=== PATIENT | female | born 1985 | race Caucasian/White ===

== ENCOUNTER 2023-03-01 14:56 | Outpatient (OUT) | payer MEDICARE, MEDICAID, SELFPAY ==
--- NOTE | 2023-03-01 15:12 | XR_ITS ---
[facility] [place] [id number] Patient Name: ESTEFANIA CHOWDHURY MRN: [id number] date: 1985 Sex: F Assigned Patient Location: [facility] Current Patient Location: [facility] Accession/Order Number: [id number] Exam Date: 03/01/2023 15:05 Report Date: 03/01/2023 16:35 At the request of: ALICIA WHITING Procedure: XR knee CHACORTA 4V EXAMINATION: XR knee CHACORTA 4V HISTORY: Acute pain of right knee M25.561 COMPARISON: No relevant comparison available. FINDINGS: RIGHT FINDINGS: BONES: Normal. No significant arthropathy or acute abnormality. SOFT TISSUES: Negative. No visible soft tissue swelling. OTHER: Negative. LEFT FINDINGS: BONES: Normal. No significant arthropathy or acute abnormality. SOFT TISSUES: Negative. No visible soft tissue swelling. OTHER: Negative. IMPRESSION: RIGHT CONCLUSION: No acute radiographic abnormality LEFT CONCLUSION: No acute radiographic abnormality Electronically authenticated by: INOCENCIA YEE Date: 03/01/2023 16:35
== END 2023-03-01 14:57 | disposition home or self-care (01) ==
LOC: RAD 14:56
PROVIDERS: PCP Family Medicine; Visit Provider Family Medicine
DX: M25.561 Pain in right knee (principal)
CPT/HCPCS: 73564

== ENCOUNTER 2023-03-22 14:18 | Outpatient (RCR) | payer MEDICARE, MEDICAID, SELFPAY | END 2023-04-05 11:05 | disposition home or self-care (01) | LOC: PT 14:18 | PROVIDERS: PCP Family Medicine; Visit Provider Nurse Practitioner Family | DX: S86.811D Strain of other muscle(s) and tendon(s) at lower leg level, right leg, subsequent encounter (principal); M25.561 Pain in right knee; M79.604 Pain in right leg | CPT/HCPCS: 97110; 97161 ==

== ENCOUNTER 2023-04-05 16:51 | Outpatient (OUT) | payer MEDICARE, MEDICAID, SELFPAY ==
--- NOTE | 2023-04-05 16:54 | US_ITS ---
[facility] [place] [id number] Patient Name: ESTEFANIA CHOWDHURY MRN: [id number] date: 1985 Sex: F Assigned Patient Location: US Current Patient Location: US Accession/Order Number: [id number] Exam Date: 04/05/2023 17:00 Report Date: 04/05/2023 19:33 At the request of: CHRISTI VARGAS Procedure: US venous doppler LE RT EXAMINATION: US venous doppler LE RT HISTORY: Right leg pain M79.604 COMPARISON: No relevant comparison available. FINDINGS: REGION: Right leg. THROMBI: None. COMPRESSIBILITY: Normal compressibility. FLOW: Normal waveform and antegrade flow between 5 and 20 cm/s. OTHER: None. US/US venous doppler LE RT IMPRESSION: 1. No deep vein thrombus within the right lower extremity. Electronically authenticated by: MANUEL FU Date: 04/05/2023 19:33
== END 2023-04-05 16:52 | disposition home or self-care (01) ==
LOC: US 16:51
PROVIDERS: PCP Family Medicine; Visit Provider Nurse Practitioner Family
DX: M79.604 Pain in right leg (principal)
CPT/HCPCS: 93971

== ENCOUNTER 2023-05-21 08:18 | Outpatient (OUT) | payer MEDICARE, MEDICAID, SELFPAY ==
[2023-05-21 09:49] LABS: Alanine Aminotransferase 38 U/L (14-59); Albumin Level 3.6 g/dL (3.4-5.0); Alkaline Phosphatase 66 U/L (46-116); Anion Gap 15.9; Aspartate Amino Transferase 17 U/L (15-37); BUN Creatinine Ratio 15.6; Bilirubin Total 0.2 mg/dL (0.2-1.0); Carbon Dioxide 18.7 mmol/L (21.0-32.0); Chloride 107 mmol/L (98-107); Estimated GFR (African America >60 (>=60); Estimated GFR (Non-African Ame >60 (>=60); Globulin 3.7 g/dL; Glucose 122 mg/dL (74-106); Potassium 3.6 mmol/L (3.5-5.1); Sodium 138 mmol/L (136-145); Total Protein 7.3 g/dL (6.4-8.2)
== END 2023-05-21 08:19 | disposition home or self-care (01) ==
LOC: LAB 08:20
PROVIDERS: PCP Family Medicine; Visit Provider Family Medicine
DX: E78.5 Hyperlipidemia, unspecified (principal)
CPT/HCPCS: 36415; 80053; 80061; 82947

== ENCOUNTER 2023-05-21 08:22 | Outpatient (OUT) | payer MEDICARE, MEDICAID, SELFPAY ==
[2023-05-21 10:47] LABS: Chol HDL Ratio 3.8; Cholesterol 154 mg/dL (<=200); Glucose 129 mg/dL (74-106); HDL Cholesterol 40 mg/dL (40-60); Triglycerides 356 mg/dL (<=150); VLDL CHOLESTEROL 71.2 mg/dL
== END 2023-05-21 08:23 | disposition home or self-care (01) ==
PROVIDERS: PCP Family Medicine; Visit Provider Psychiatry & Neurology Psychiatry
DX: Z79.899 Other long term (current) drug therapy (principal); F29 Unspecified psychosis not due to a substance or known physiological condition; E78.5 Hyperlipidemia, unspecified
CPT/HCPCS: 36415; 80053; 80061; 82947

== ENCOUNTER 2023-06-18 15:21 | Outpatient (OUT) | payer MEDICARE, MEDICAID, SELFPAY ==
--- NOTE | 2023-06-18 15:25 | MR_ITS ---
[facility] [place] [id number] Patient Name: ESTEFANIA CHOWDHURY MRN: [id number] date: 1985 Sex: F Assigned Patient Location: MRI Current Patient Location: MRI Accession/Order Number: [id number] Exam Date: 06/18/2023 15:55 Report Date: 06/18/2023 18:23 At the request of: CHRISTI Mckeon APLING Procedure: MR knee RT wo con EXAM: MR knee RT wo con HISTORY: Right calf pain COMPARISON: X-rays 03/01/2023 TECHNIQUE: Multiplanar, multi sequential MRI sequences were performed. The sagittal sequences were performed off axis from normal. FINDINGS: The patient is morbidly obese. Nondescript edema within the anterior prepatellar soft tissues. No loculated soft tissue collection, mass, cyst or hematoma. No popliteal cyst. No fracture, dislocation, subluxation or osseous lesion. Muscles exhibit no edema, hematoma, atrophy or fatty infiltration. High-grade partial-thickness versus full-thickness fissure of the lateral patella facet central cartilage (axial 8 and sagittal 22). Mild adjacent interstitial edema and partial thickness changes. Small foci of bone marrow edema within the underlying subchondral bone. The remainder of the patella cartilage is unremarkable. No gross visualized irregularity of the trochlea cartilage. No gross visualized chondral irregularity of the medial or lateral femorotibial articular surfaces. No patella tilt or discrete subluxation. Edema of Hoffa's fat. The patella tendon and visualized extensor mechanism are unremarkable. Approximately 5.2 mm of weight related lateral translation of the tibia on the femur. This results in cephalad uncovering of the lateral meniscus body (coronal 17). Mild weight related medialization of the medial meniscus body into the medial gutter (coronal 17). No visualized meniscal tears. The root ligaments are unremarkable. The anterior cruciate, posterior cruciate, medial collateral and lateral complex ligaments exhibit no thickening, tear or edema. MR/MR knee RT wo con IMPRESSION: 1. High-grade partial-thickness versus full-thickness chondral fissure of the lateral patella facet with adjacent interstitial edema and partial thickness changes. 2. Morbid obesity with a weight related meniscal changes. 3. Knee effusion. Electronically authenticated by: INOCENCIA MONROE Date: 06/18/2023 18:23
== END 2023-06-18 15:22 | disposition home or self-care (01) ==
LOC: MRI 15:21
PROVIDERS: PCP Family Medicine; Visit Provider Nurse Practitioner Family
DX: M23.91 Unspecified internal derangement of right knee (principal); R60.9 Edema, unspecified; M25.461 Effusion, right knee
CPT/HCPCS: 73721

== ENCOUNTER 2023-10-01 08:38 | Outpatient (OUT) | payer MEDICARE, MEDICAID, SELFPAY ==
[2023-10-01 09:07] LABS: Basophils Absolute Auto 0.1 10^3/uL (0.0-0.1); Basophils Percent Auto 0.5 % (0.2-2.0); Eosinophils Absolute Auto 0.3 10^3/uL (0.0-0.7); Eosinophils Percent Auto 2.7 % (0.9-7.0); Hemoglobin 12.1 g/dL (12.0-16.0); Immature Granulocytes Abs Auto 0.04 10^3/uL (0.00-0.03); Immature Granulocytes Pct Auto 0.4 % (0.0-0.5); Lymphocytes Absolute Auto 2.6 10^3/uL (1.2-3.8); Lymphocytes Percent Auto 27.9 % (20.5-60.0); Mean Corpuscular HGB Conc 31.8 g/dL (29.9-35.2); Mean Corpuscular Hemoglobin 28.9 pg (26.7-34.0); Mean Corpuscular Volume 90.9 fL (81.0-99.0); Mean Platelet Volume 9.6 fL (9.5-13.5); Monocytes Absolute Auto 0.7 10^3/uL (0.3-0.8); Monocytes Percent Auto 7.8 % (1.7-12.0); Neutrophils Absolute Auto 5.6 10^3/uL (1.4-6.5); Neutrophils Percent Auto 60.7 % (43.0-75.0); Platelet Count 281 10^3/uL (150-450); Red Blood Count 4.18 10^6/uL (4.20-5.40); Red Cell Distribution Width 14.8 % (11.0-15.0); White Blood Count 9.2 10^3/uL (4.0-11.0)
[2023-10-01 10:08] LABS: Estimated Average Glucose 126 mg/dL
[2023-10-01 14:56] LABS: Chloride 108 mmol/L (98-107); Potassium 3.9 mmol/L (3.5-5.1); Sodium 141 mmol/L (136-145)
[2023-10-01 14:57] LABS: Alanine Aminotransferase 40 U/L (14-59); Albumin Globulin Ratio 1.1; Albumin Level 3.5 g/dL (3.4-5.0); Alkaline Phosphatase 67 U/L (46-116); Anion Gap 18.1; Aspartate Amino Transferase 16 U/L (15-37); BUN Creatinine Ratio 17.7; Bilirubin Total 0.1 mg/dL (0.2-1.0); Calcium 8.6 mg/dL (8.5-10.1); Carbon Dioxide 18.8 mmol/L (21.0-32.0); Estimated GFR (African America >60 (>=60); Estimated GFR (Non-African Ame >60 (>=60); Globulin 3.2 g/dL; Glucose 119 mg/dL (74-106); Total Protein 6.7 g/dL (6.4-8.2); Triglycerides 285 mg/dL (<=150)
[2023-10-01 14:58] LABS: Chol HDL Ratio 3.6; Cholesterol 142 mg/dL (<=200); HDL Cholesterol 39 mg/dL (40-60); TSH W/ REFLEX FT4 1.502 uIU/mL (0.358-3.740)
[2023-10-02 05:08] LABS: HCV Ab Non Reactive (Non Reactive); HIV Ab/p24 Ag Screen Non Reactive (Non Reactive)
== END 2023-10-01 08:39 | disposition home or self-care (01) ==
LOC: LAB 08:40
PROVIDERS: PCP Nurse Practitioner Primary Care; Visit Provider Nurse Practitioner Primary Care
DX: Z00.00 Encounter for general adult medical examination without abnormal findings (principal); Z11.59 Encounter for screening for other viral diseases; Z11.4 Encounter for screening for human immunodeficiency virus [HIV]; Z13.6 Encounter for screening for cardiovascular disorders
CPT/HCPCS: 36415; 80053; 80061; 83036; 84443; 85025; 86803; 87389

== ENCOUNTER 2025-02-23 08:10 | Outpatient (OUT) | payer MEDICARE, MEDICAID, SELFPAY ==
[2025-02-23 09:20] LABS: Chol HDL Ratio 2.7; Cholesterol 121 mg/dL (<=200); HDL Cholesterol 45 mg/dL (40-60); Triglycerides 207 mg/dL (<=150); VLDL CHOLESTEROL 41.4 mg/dL
== END 2025-02-23 08:11 | disposition home or self-care (01) ==
LOC: LAB 08:14
PROVIDERS: PCP Nurse Practitioner Primary Care; Visit Provider Internal Medicine
DX: E78.1 Pure hyperglyceridemia (principal)
CPT/HCPCS: 36415; 80061

== ENCOUNTER 2025-06-17 08:31 | Outpatient (OUT) | payer MEDICARE, MEDICAID, SELFPAY ==
--- OUTSIDE RECORDS SUMMARY | 2024-12-01 11:15 | XMS_ITS ---
Author Organization Formerly [facility], [facility] vices Address [address] [place], [place] [id number] Care Team Providers Care Computational Mathematician Name Role Phone Radha Lawrence Primary Care Provider REASON FOR VISIT 4 week DM, Weight Social History Sex Assigned At : Social History Observation Description Sex Assigned At Female Encounters Encounter Location Date Provider Diagnosis Main [address] [place] [id number] 12/01/2024 Radha Lawrence Plan Of Treatment Next Appt Details Provider Name:Radha Lawrence, 06/22/2025 08:15:00 AM, [address] [place], [place], [id number], Progress Notes * Jodi TOLEDO ADOB: [birth year] (39 yo F)Acc No.[id number]:12/01/2024 Medical Note Patient: Norm Jodi CARTAGENA Provider: Yajaira Lawrence MD :1985 A ge:38 Y S ex:Female Date:12/01/2024 Address:[address] [place], [place] [id number] Subjective: * Chief Complaints: * 1 . 4 week DM, Weight. * Medical History: Objective: * Vitals: Assessment: Plan: * Treatment: * Billing Information: * Visit Code: * Procedure Codes: * Electronic signature of Kendra Lawrence MD on 06/17/2025 at 08:36 AM EDT Sign off status: Pending * Provider: Yajaira Lawrence MD Date: 12/01/2024 Generated for Connie infante/Francoise/Katherineitting on: 1 08:36 AM EDT
--- OUTSIDE RECORDS SUMMARY | 2025-03-09 09:00 | XMS_ITS ---
Author Organization [facility] vices Address [address] [place] [id number] Care Team Providers Care Livestock Haulier Name Role Phone Radha Lawrence Primary Care Provider REASON FOR VISIT 3 month DM, HTN Social History Sex Assigned At : Social History Observation Description Sex Assigned At Female Encounters Encounter Location Date Provider Diagnosis Main [address] [place], [place] [id number] 03/09/2025 Radha Lawrence Plan Of Treatment Next Appt Details Provider Name:Radha Lawrence, 06/22/2025 08:15:00 AM, [address] [place], [id number], Progress Notes * Jodi TOLEDO ADOB: [birth year] (39 yo F)Acc No.[id number]:03/09/2025 Medical Note Patient: Norm Jodi CARTAGENA Provider: Yajaira Lawrence MD :1985 A ge:39 Y S ex:Female Date:03/09/2025 Address:[address] [place], [place] [id number] Subjective: * Chief Complaints: * 1 . 3 month DM, HTN. * Medical History: Objective: * Vitals: Assessment: Plan: * Treatment: * Billing Information: * Visit Code: * Procedure Codes: * Electronic signature of Kendra Lawrence MD on 06/17/2025 at 08:36 AM EDT Sign off status: Pending * Provider: Yajaira Lawrence MD Date: 03/09/2025 Generated for Connie infante/Francoise/Elroy on: 1 08:36 AM EDT
--- OUTSIDE RECORDS SUMMARY | 2025-06-04 14:15 | XMS_ITS | Encounter Summary ---
Author Organization [facility] Address [address] [place] [address] Care Team Providers Care Hydroelectric Component Machinist Name Role Phone Deedee Wang Primary Care Provider [phone] Coretta Josue DO Unavailable [phone] Meggan Freeman DO Unavailable [phone] Reason for Referral * Clinic-Administered Medication (Routine) - Closed Specialty Diagnoses / Procedures Referred By Bentley smith Referred To Contact Orthopaedic Surgery Diagnoses Primary osteoarthritis of right knee Procedures L Inj/Asp: R knee Hank Malik NP [address] [place] [address] Phone: tel: fax: Referral ID Status Reason Start Date Expiration Date Visits Re quested Visits Authorized [id number] Closed 06/04/2025 12/01/2025 1 1 Reason for Visit * Reason Comments Follow-up Encounter Details Date Type Department Care Team (Latest Contact Info) Description 06/04/2025 2:15 PM EDT [facility] [address] [place] [phone] Hank Malik NP [address] [place], [place] [id number] Primary osteoarthritis of right knee (Primary Dx); Chronic pain of right knee Social History Tobacco Use Types Packs/Day Years Used Date Smoking Tobacco: Never Smokeless Tobacco: Never Alcohol Use Standard Drinks/Week Comments Never 0 (1 standard drink = 0.6 oz pur e alcohol) Caffeine: pop rarely Comments Unknown Sex and Gender Information Value Date Recorded Sex Assigned at Not on file Legal Sex Female 6:38 PM EDT Gender Identity Female 11/15/2023 7:45 PM EDT Sexual Orientation Not on file documented as of this encounter Progress Notes * Hank Malik NP - 06/04/2025 2:15 PM EDTAssociated Order(s): L Inj/Asp: R knee Post-Procedure Diagnose(s): Primary osteoarthritis of right knee Images from the original note were not included. HISTORY OF PRESENT ILLNESS: EST PT Jodi Toledo is an 39 y.o. @ female. EST PT RECHECK RT KNEE PAIN- S/P PT [facility] EPIC 04/06/25 XRAY [facility] 03/01/23 MRI [facility] 06/18/23 VENOUS DOPPLER TB 04/05/23 DEPO INJECTION 07/17/23, 12/04/23 MDP 11/14/23 PHYSICAL THERAPY [facility] FINISHED THERAPY, NO RELIEF. PAIN CONTINUES FROM THIGH TO ANKLE. PAIN DIFFUSE IN KNEE, CONSTANT PAIN. +TYL. DENIES SWELLING, N/T. DENIES POPPING, GRINDING. FELT LIKE KNEE GAVE OUT ON HER YESTERDAY. DOES NOT USUALLY WAKE AT HS. REQUESTING INJ TODAY. ALLERGIES: Allergies Allergen Reactions Penicillins Unknown Other Reaction(s): Anaphylaxis , Rash HOME MEDICATIONS: Current Outpatient Medications Medication Instructions amitriptyline (ELAVIL) 50 mg, Oral, Nightly atorvastatin (LIPITOR) 20 mg, Daily sbkkhjqgqr-qfyksydxykmdy-egklzupn 50-325-40 MG tablet 1 tablet, Oral, Every 6 hours PRN calcium carbonate 600 mg, 2 times daily with meals dicyclomine (BENTYL) 20 mg, 2 times daily FLUoxetine (PROZAC) 40 mg, Daily medroxyPROGESTERone (Depo-Provera) 150 MG/ML suspension prefilled syringe injection syringe 0.65 mLIntramuscular every 3 months for 90 days omega-3 (FISH OIL) 1,000 mg, Daily QUEtiapine (SEROQUEL) 400 mg, Nightly rosuvastatin (CRESTOR) 20 mg, Daily topiramate (TOPAMAX) 100 mg, Oral, Daily traZODone (Desyrel) 50 MG tablet PHYSICAL EXAM: Right Knee Exam Tenderness Right knee tenderness location: ANTERIOR KNEE. Range of Motion Extension: 5 Flexion: 120 Tests Varus: negative Valgus: negative Other Erythema: absent Pulse: present Swelling: mild Comments: Pain radiates from knee down leg Vitals: There is no height or weight on file to calculate BMI. Tobacco Use: Low Risk (06/04/2025) Patient History Smoking Tobacco Use: Never Smokeless Tobacco Use: Never Passive Exposure: Not on file Alcohol Use: Not on file IMAGING: L Inj/Asp: R knee on 06/04/2025 4:14 PM Indications: pain Details: 21 G needle, anterolateral approach Medications: 40 mg methylPREDNISolone acetate 40 MG/ML Outcome: tolerated well, no immediate complications Site cleaned with isopropyl alcohol Procedure, treatment alternatives, risks and benefits explained, specific risks discussed. Consent was given by the patient. Orders Placed This Encounter Procedures L Inj/Asp This order was created via procedure documentation ASSESSMENT: ICD-10-CM 1. Primary osteoarthritis of right knee M17.11 2. Chronic pain of right knee M25.561 G89.29 PLAN: I reviewed exam findings with the patient and discussed treatment options, answered questions. I discussed with the patient the option of an injection. I advised the patient of risks associated with an injection including a reaction to medication, infection, failure to improve and possible worsening. The patient demonstrated understanding. Patient requesting injection. Skin Cleansed with alcohol swab. Utilizing aseptic technique patient given 40mg Depomedrol was injected. Patient tolerated thiswell. Neurovasc intact s/p injection. Post injection care instructions discussed. She will call if symptoms fail to improve Questions answered in laymen terms at the bedside. The diagnosis, home exercise plan and any ongoing restrictions/ recommendations reviewed. If unable to be reached in office, I recommend evaluation at nearest Emergency Room if any symptoms worsened or new symptoms develop for requiring urgent evaluation. documented in this encounter Plan of Treatment Not on file documented as of this encounter Procedures Procedure Name Priority Date/Time Associated Diagnosis Comments VA ARTHROCENTESIS ASPIR&/INJ MAJOR JT/BURSA W/O US Routine 06/04/2025 4:14 PM EDT Primary osteoarthritis of right knee documented in this encounter Results * VA ARTHROCENTESIS ASPIR&/INJ MAJOR JT/BURSA W/O US (06/04/2025 4:14 PM EDT) Narrative Hank Malik NP - 06/04/2025 4:14 PM EDT Hank Malik NP 06/04/2025 4:23 PM L Inj/Asp: R knee on 06/04/2025 4:14 PM Indications: pain Details: 21 G needle, anterolateral approach Medications: 40 mg methylPREDNISolone acetate 40 MG/ML Outcome: tolerated well, no immediate complications Site cleaned with isopropyl alcohol Procedure, treatment alternatives, risks and benefits explained, specific risks discussed. Consent was given by the patient. Hank Malik NP IN CLINIC/BEDSIDE ORDERABLES Fi nal Result documented in this encounter Visit Diagnoses Diagnosis Primary osteoarthritis of right knee- Primary Chronic pain of right knee documented in this encounter Administered Medications Inactive Administered Medications - up to 3 most recent administrations Medication Order MAR Action Action Date Dose Rate Site methylPREDNISolone acetate (DEPO-Medrol) injection 40 mg 40 mg, Intra-articular, Once PRN Procedure, Starting on Bev 06/04/25 at 1614, For 1 doseIndications:Primary osteoarthritis of right knee Given 06/04/2025 4:14 PM EDT 40 mg documented in this encounter Care Teams Hydroelectric Component Machinist Relationship Specialty Start Date End Date Deedee Wang DO [address] [place] [address] PCP - General Family Medicine 03/14/23 Meggan Freeman DO [address] [place] [address] PCP - [facility] 09/03/24 Coretta Josue DO [address] [place] [address] Referring Physician Neurology 10/20/24 documented as of this encounter
--- OUTSIDE RECORDS SUMMARY | 2025-06-09 10:45 | XMS_ITS ---
Author Organization [facility]ly [facility] vices Address [address], [place] [id number] Care Team Providers Care Rack Washer Name Role Phone Radha Lawrence Primary Care Provider REASON FOR VISIT DM Social History Sex Assigned At : Social History Observation Description Sex Assigned At Female Encounters Encounter Location Date Provider Diagnosis Main [address] [place] [id number] 06/09/2025 Radha Lawrence Plan Of Treatment Next Appt Details Provider Name:Radha Lawrence, 06/22/2025 08:15:00 AM, [address], [place], [id number], Progress Notes * Jodi TOLEDO ADOB: [birth year] (39 yo F)Acc No.[id number]:06/09/2025 Medical Note Patient: Norm MELENDEZJodi RODRIGUEZ Provider: Yajaira Lawrence MD :1985 A ge:39 Y S ex:Female Date:06/09/2025 Address:[address] [place], [place] [id number] Subjective: * Chief Complaints: * 1 . DM. * Medical History: Objective: * Vitals: Assessment: Plan: * Treatment: * Billing Information: * Visit Code: * Procedure Codes: * Electronic signature of Kendra Lawrence MD on 06/17/2025 at 08:36 AM EDT Sign off status: Pending * Provider: Yajaira Lawrence MD Date: 1 Generated for Connie inafnte/Francoise/Elroy on: 1 08:36 AM EDT
--- OUTSIDE RECORDS SUMMARY | 2025-06-17 08:35 | XMS_ITS | Clinical Summary ---
Author Organization [email or web address] Address [id number] [address] [place] [address] Care Team Providers Care Software Systems Engineer Name Role Phone Services, [facility] Primary Care Provider Allergies Active Allergy Reactions Criticality Noted Date Comments Penicillins Anaphylaxis High 05/23/2017 Medications amitriptyline (ELAVIL) 25 mg tablet Take 1 tablet (25 mg total) by mouth in the morning and 1 tablet (25 mg total) before bedtime. Active butalbital-acet waqvca-dyh-vuj (FIORICET WITH CODEINE) 28-849-59-30 mg per capsule Take 1 capsule by mouth every 4 (four) hours as needed for headaches. Active medroxyPROGESTE Cade (DEPO-PROVERA) 150 mg/mL injection Inject 1 mL (150 mg total) into the appropriate muscle every 3 (three) months. Active FLUoxetine (PROzac) 40 mg capsule Take 1 capsule (40 mg total) by mouth in the morning. 2 Active QUEtiapine (SEROquel) 100 mg tablet Take 1 tablet (100 mg total) by mouth nightly. 2 Active rosuvastatin (CRESTOR) 5 mg tablet Take 1 tablet (5 mg total) by mouth in the morning. 2 Active topiramate (TOPAMAX) 100 mg tablet 2 Active OZEMPIC 0.25 mg or 0.5 mg (2 mg/3 mL) pen injector Inject 2 mg under the skin once a week. Active omega-3 fatty acids/fish oil (OMEGA 3 FISH OIL ORAL) Take 1,000 mg by mouth in the morning. Active alosetron (LOTRONEX) 0.5 MG tablet Take 1 tablet (0.5 mg total) by mouth in the morning and 1 tablet (0.5 mg total) before bedtime. 4 Active dicyclomine (BENTYL) 20 mg tablet Take 1 tablet (20 mg total) by mouth in the morning and 1 tablet (20 mg total) before bedtime. 4 Active traZODone (DESYREL) 50 mg tablet Take 1 tablet (50 mg total) by mouth nightly. 5 Active QUEtiapine (SEROquel) 400 mg tablet Take 1 tablet (400 mg total) by mouth nightly. 5 Active Hospital, Clinic, or Other Facility Administered Medication Ordered Dose Route Frequency Start Date End Date Status medroxyPROGESTERone (DEPO-PROVERA) injection 150 mgIndications:Encounter for surveillance of injectable contraceptive 150 mg IM Once 05/20/2025 05/20/2025 Ended Active Problems Problem Noted Date Diagnosed Date HLD (hyperlipidemia) 05/11/2022 Overview (05/15/2023): Last Assessment & Plan: Assessment: takes Crestor Migraines 05/11/2022 Overview (05/15/2023): Last Assessment & Plan: Assessment: on meds Developmental disability 04/10/2022 BMI 40.0-44.9, adult 01/19/2022 Encounters Date Type Department Care Team Description 05/20/2025 3:00 PM EDT Nurse Injection [facility] [address] [place] [address] Encounter for surveillance of injectable contraceptive (Primary Dx) 05/18/2025 Travel from Last 3 Months Family History Medical History Relation Name Comments Diabetes Father Laron Toledo Fibromyalgia Mother Mary Grace Toledo Kidney disease Mother Mary Grace Toledo Breast cancer Neg Hx Colon cancer Neg Hx Ovarian cancer Neg Hx Uterine cancer Neg Hx Relation Name Status Comments Father Laron Toldeo Alive Mother Mary Grace Toledo Alive Social History Tobacco Use Types Packs/Day Years Used Date Smoking Tobacco: Never Smokeless Tobacco: Never Alcohol Use Standard Drinks/Week Comments No 0 (1 standard drink = 0.6 oz pur e alcohol) PHQ-2 Answer Date Recorded Total Score 19 05/15/2023 Childcare Answer Date Recorded Childcare Unknown 02/13/2019 Employment Answer Date Recorded Employment Unknown 02/13/2019 Hunger Screening Answer Date Recorded Within the past 12 months we worried whether our food would run out before we got money to buy more. Never True 05/20/2025 Within the past 12 months th e food we bought just didn't last and we didn't have money to get more. Never True 05/20/2025 Purpose - Life Answer Date Recorded Purpose and direction in life Unknown Comments No Sex and Gender Information Value Date Recorded Sex Assigned at Not on file Legal Sex Female 11:12 AM EDT Gender Identity Not on file Sexual Orientation Not on file Last Filed Vital Signs Vital Sign Reading Time Taken Comments Blood Pressure 130/90 05/20/2025 3:08 PM EDT Pulse 82 08/15/2022 11:23 AM EST Temperature 37.1 C (98.8 F) 06/07/2017 8:48 AM EDT Respiratory Rate 18 08/15/2022 11:2 3 AM EST Oxygen Saturation 95% 06/07/2017 11: 00 AM EDT Inhaled Oxygen Concentration - - Weight 112.7 kg (248 lb 6.4 oz) 05/20/2025 2:43 PM EDT Height 160 cm (5' 2.99 ) 05/20/2025 2:43 PM EDT Body Mass Index 44.02 05/20/2025 2:43 PM EDT Plan of Treatment Upcoming Encounters Date Type Department Care Team (Late st Contact Info) Description 08/05/2025 3:00 PM EST Nurse Injection [facility] [address] [place] [address] Health Maintenance Due Date Last Done Comments Adult BMI Follow Up Plan 12/23/2003 Depression Screening 05/15/2024 05/15/2023 COVID-19 Vaccine (2024-2 6 season) 2025 08/14/2021, 12/23/2020, 12/02/2020 Influenza Vaccine 05/04/2025 07/28/2024, , 07/08/2022, Additional history exists DTaP,Tdap and Td Vaccines (7 - Td or Tdap) 12/28/2025 12/29/2015, 01/07/1998, 01/31/1991, Additional history exists Pap Smear 05/15/2026 05/15/2023, 05/04, 05/15/2023 Adult BMI Screening 05/20/2026 05/20/2025 Tobacco Screening 05/20/2026 05/20/2025 Medical Devices Not on file Procedures Procedure Name Priority Date/Time Associated Diagnosis Comments HIGH RISK HPV W/BARBIE Routine 05/15/2023 6:00 AM EDT Cervical smear, as part of routine gynecological examination from Last 3 Months or Most Recently Relevant to Health Maintenance Results * High risk HPV w/barbie (05/15/2023 6:00 AM EDT) Hpv specimen type ThinPrep 05/16/2023 6:00 AM EDT [facility] Hpv 16 Negative Negative^N egative 05/16/2023 2:40 PM EDT [facility] Hpv 18 Negative Negative^N egative 05/16/2023 2:40 PM EDT [facility] Other high risk hpv Negative Negative^N egative 05/16/2023 2:40 PM EDT [facility] Comment: HPV types 31,33,35,39,45,52,56,58,59,66 and 68 DNA were undetectable. THINP 05/15/2023 6:00 AM EDT 05/16/2023 6:01 AM EDT us Renée Pedraza C S S REPRESENTATIVE-RESIDENT SURGEON LAB BLOOD ORDERABLES Fin al Result [facility] [address] [facility] [place] [address] [facility] [address] [facility] [place] [address] from Last 3 Months or Most Recently Relevant to Health Maintenance Insurance MEDICAID [place] [employer] MEDICARE Care Teams Software Systems Engineer Relationship Specialty Start Date End Date Services, [facility] [address] [place] PCP - General Family Medicine 05/11/17
--- OUTSIDE RECORDS SUMMARY | 2025-06-17 08:36 | XMS_ITS | Encounter Summary ---
Author Organization [facility] Address [address] [place] [address] Care Team Providers Care Stitcher Feeder Name Role Phone Deedee Wang DO Primary Care Provider [phone] Coretta Josue DO Unavailable [phone] Meggan Freeman DO Unavailable [phone] Encounter Details Date Type Department Care Team (Late st Contact Info) Description 06/04/2025 Bamboo flowsheet [facility] [address] [place] [address] Hank Malik, MARYANNE [address] [place], [place] [id number] Social History Tobacco Use Types Packs/Day Years [...] on file documented as of this encounter Plan of Treatment Not on file documented as of this encounter Visit Diagnoses Not on filedocumented in this encounter Care Teams Stitcher Feeder Relationship Specialty Start Date End Date Deedee Wang DO [address] [place], [place] [id number] PCP - General Family Medicine 03/14/23 Meggan Freeman DO [address] [facility] [address] [place] [address] PCP - [facility] 09/03/24 Coretta Josue DO [address] [place] [address] Referring Physician Neurology 10/20/24 documented as of this encounter
--- OUTSIDE RECORDS SUMMARY | 2025-06-17 08:36 | XMS_ITS | Clinical Summary ---
Author Organization [facility] Address [address] [place] [address] Care Team Providers Care Salesperson [employer] Name Role Phone Deedee Wang DO Primary Care Provider [phone] Coretta Josue DO Unavailable [phone] Meggna Freeman DO Unavailable [phone] Allergies Active Allergy Reactions Criticality Noted Date Comments Penicillins Unknown 03/13/2023 Other Reaction(s): Anaphylaxis , Rash Medications FLUoxetine (PROzac) 40 MG capsule 40 mg in the morning. Active QUEtiapine (SEROquel) 400 MG tablet Take 400 mg by mouth at bedtime. Active rosuvastatin (Crestor) 20 MG tablet Take 20 mg by mouth in the morning. Active traZODone (Desyrel) 50 MG tablet 3 Active medroxyPROGESTE Cade (Depo-Provera) 150 MG/ML suspension prefilled syringe injection syringe 0.65 mL Intramuscular every 3 months for 90 days Active calcium carbonate 1500 (600 Ca) MG tablet Take 600 mg by mouth in the morning and 600 mg in the evening. Take with meals. Active omega-3 (Fish Oil) 1000 MG capsule Take 1,000 mg by mouth in the morning. Active atorvastatin (Lipitor) 20 MG tablet Take 20 mg by mouth Daily Active dicyclomine (Bentyl) 20 MG tablet Take 20 mg by mouth in the morning and 20 mg before bedtime. 4 Active butalbital-acet aminophen-caffe ine 50-325-40 MG tabletIndicatio ns:Migraine with aura and without status migrainosus, not intractable Take 1 tablet by mouth every 6 (six) hours if needed for headaches 30 tablet 1 4 Active amitriptyline (Elavil) 25 MG tabletIndicatio ns:Migraine without aura and without status migrainosus, not intractable TAKE 2 TABLETS BY MOUTH AT BEDTIME 60 tablet 2 5 Active topiramate (Topamax) 100 MG tabletIndicatio ns:Migraine without aura and without status migrainosus, not intractable Take 1 tablet by mouth once daily 30 tablet 2 5 Active Hospital, Clinic, or Other Facility Administered Medication Ordered Dose Route Frequency Start Date End Date Status methylPREDNISolone acetate (DEPO-Medrol) injection 40 mgIndications:Primary osteoarthritis of right knee 40 mg IX Once PRN Procedure 06/04/2025 06/04/2025 Ended Active Problems Problem Noted Date Diagnosed Date Obsessive compulsive disorder 04/05/2024 Headache 04/05/2024 Migraine 04/05/2024 Obesity 04/05/2024 Hypersomnia 04/05/2024 Tremor 04/05/2024 Common migraine 04/05/2024 Disturbance of conduct 04/05/2024 Tension headache 04/05/2024 Obstructive sleep apnea 04/05/2024 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 Hallucination 04/05/2024 Memory change 04/05/2024 Encounters Date Type Department Care Team Description 06/04/2025 2:15 PM EDT Office Visit [facility] [place] [address] [place] [id number] Hank Malik, MARYANNE Primary osteoarthritis of right knee (Primary Dx); Chronic pain of right knee 06/04/2025 Bamboo flowsheet [facility] [place] [address] Hank Malik, MARYANNE 06/04/2025 Travel 06/03/2025 Travel 05/28/2025 3:30 PM EDT Treatment [facility] [address] [facility] [address] [place] [address] Kelbley, Whitley, VOLLEYBALL REFEREE Acute pain of right knee (Primary Dx); Radicular pain of right lower extremity 05/28/2025 Bamboo flowsheet [facility] [address] [facility] [address] [place] [address] Kelbley, Whitley, VOLLEYBALL REFEREE 05/28/2025 Travel 05/25/2025 3:30 PM EDT Treatment [facility] [address] [facility] [address] [place] [address] Kelbley, Whitley, VOLLEYBALL REFEREE Acute pain of right knee (Primary Dx) 05/25/2025 Travel 05/21/2025 Travel 05/18/2025 3:30 PM EDT Treatment [facility] [address] [facility] [address] [place] [address] Kelbley, Whitley, VOLLEYBALL REFEREE Acute pain of right knee (Primary Dx); Radicular pain of right lower extremity 05/18/2025 Bamboo flowsheet [facility] [address] [facility] [address] [place] [address] Kelbley, Whitley, VOLLEYBALL REFEREE 05/18/2025 Travel 05/13/2025 4:00 PM EDT Treatment [facility] [address] [facility] [address] [place] [address] Lisa Pepe, PT Acute pain of right knee (Primary Dx); Radicular pain of right lower extremity 05/13/2025 Bamboo flowsheet [facility] [address] [facility] [address] [place] [address] Lisa Pepe, PT 05/13/2025 Travel 05/11/2025 3:30 PM EDT Treatment [facility] [address] [facility] [address] [place] [address] Lee Mcdowell, VOLLEYBALL REFEREE Acute pain of right knee (Primary Dx); Radicular pain of right lower extremity 05/11/2025 Bamboo flowsheet [facility] [address] [facility] [address] [place] [address] Lee Mcdowell, VOLLEYBALL REFEREE 05/11/2025 Travel 05/09/2025 Travel 05/07/2025 3:00 PM EDT Treatment [facility] [address] [facility] [address] [place] [address] Flex Whitley, VOLLEYBALL REFEREE Acute pain of right knee (Primary Dx); Radicular pain of right lower extremity 05/07/2025 Bamboo flowsheet [facility] [address] [facility] [address] [place] [address] Whitley Mccord, VOLLEYBALL REFEREE 05/07/2025 Travel 05/05/2025 4:00 PM EDT Treatment [facility] [address] [facility] [address] [place] [address] Lee Mcdowell, VOLLEYBALL REFEREE Acute pain of right knee (Primary Dx); Radicular pain of right lower extremity 05/05/2025 Bamboo flowsheet [facility] [address] [facility] [address] [place] [address] Lee Mcdowell, VOLLEYBALL REFEREE 05/05/2025 Travel 04/29/2025 4:00 PM EDT Treatment [facility] [address] [facility] [address] [place] [address] Lee Mcdowell, VOLLEYBALL REFEREE Acute pain of right knee (Primary Dx); Radicular pain of right lower extremity 04/29/2025 Bamboo flowsheet [facility] [address] [facility] [address] [place] [address] Lee Mcdowell, VOLLEYBALL REFEREE 04/29/2025 Travel 04/27/2025 5:00 PM EDT Evaluation [facility] [address] [facility] [address] [place] [address] Lisa Pepe, PT Acute pain of right knee; Radicular pain of right lower extremity 04/27/2025 Plan of Care Documentation [facility] [address] [facility] [address] [place] [address] 04/27/2025 Bamboo flowsheet [facility] [address] [facility] [address] [place] [address] Afshin Lisa, PT 04/27/2025 Travel 04/20/2025 Travel 04/06/2025 1:45 PM EDT Ancillary Procedure [facility] [address] [place] [address] 04/06/2025 1:45 PM EDT Office Visit [facility] [address] [place] [address] Hank Malik, MARYANNE Radicular pain of right lower extremity (Primary Dx); Acute pain of right knee 04/06/2025 Bamboo flowsheet [facility] [address] [place] [address] Hank Malik NP 04/06/2025 Travel 04/05/2025 Travel from Last 3 Months Family History Medical History Relation Name Comments Fibromyalgia Mother Mary Grace [place] Relation Name Status Comments Brother Alive Father Alive borderline diab etic, hearing deficiency Mother Mary Grace [place] Alive Social History [...] PM EDT Sexual Orientation Not on file Last Filed Vital Signs Vital Sign Reading Time Taken Comments Blood Pressure 138/82 10/20/2024 3:01 PM EST Pulse 97 10/20/2024 3:01 PM EST Temperature - - Respiratory Rate 16 04/07/2024 3:00 PM EDT Oxygen Saturation 97% 10/20/2024 3:01 PM EST Inhaled Oxygen Concentration - - Weight 113 kg (249 lb) 10/20/2024 3:01 PM EST Height 165.1 cm (5' 5 ) 10/20/2024 3:01 PM EST Body Mass Index 41.44 10/20/2024 3:01 PM EST Plan of Treatment Health Maintenance Due Date Last Done Comments Medicare Annual Wellness (AWV) 1985 Pap Smear 05/15/2026 05/15/2023 Cervical Cancer Screening 05/15/2028 HPV/Cotest 05/15/2028 05/15/2023 Influenza Vaccine Completed 05/26/2025, , 09/04/2023, Additional history exists Procedures Procedure Name Priority Date/Time Associated Diagnosis Comments MA ARTHROCENTESIS ASPIR&/INJ MAJOR JT/BURSA W/O US Routine 06/04/2025 4:14 PM EDT Primary osteoarthritis of right knee XR KNEE 1-2 VIEWS RIGHT Routine 04/06/2025 1:40 PM EDT Acute pain of right knee from Last 3 Months Results * MA ARTHROCENTESIS ASPIR&/INJ MAJOR JT/BURSA W/O US (06/04/2025 [...] NP IN CLINIC/BEDSIDE ORDERABLES Fi nal Result * XR knee 1 or 2 views right (04/06/2025 1:40 PM EDT) Anatomical Region Laterality Modality Lower Extremities, Knee Right [facility] Narrative 04/06/2025 4:02 PM EDT Imaging Result: 04/06/2025: AP and lateral of right knee showed excellent preservation of joint space heights there was no flattening of the articular surfaces tricompartmentally. There was no evidence of marginal osteophytic formation. Overall alignment appeared to be normal. There was no evidence of fracture or dislocation. Bony structures in view showed excellent ossification. Impression: No acute bony process, right knee Hank Malik REGISTRY RN-CAP LINING MACHINE OPERATOR Hank Negrete King FOREST EXAMINER IMG XR PROCEDURES Final Result from Last 3 Months Insurance MEDICAID [place] [employer] MEDICARE Care Teams Salesperson [employer] Relationship Specialty Start Date End Date Deedee Wang DO [address] [place] [address] PCP - General Family Medicine 03/14/23 Meggan Freeman DO [address] [place] [address] PCP - [facility] 09/03/24 Coretta Josue DO [address] [place] [address] Referring Physician Neurology 10/20/24
--- OUTSIDE RECORDS SUMMARY | 2025-06-17 08:36 | XMS_ITS | Patient Health Record ---
Author Organization [facility] vices Address [address] [place], [place] [id number] Care Team Providers Care Manager Of Selection And Assessment Name Role Phone Radha Lawrence Primary Care Provider Maye Tinajero Unavailable [phone] Allergies Allergen (clinical drug ingredient) Drug/Non Drug Allergy documented on EMR Reaction Allergy Type Onset Date Status Information temporarily unavailable Penicillins Anaphylaxis , Rash Drug Allergy Active Results Component Value Reference Range Notes LDL-CHOL DIRECT Reviewed date:10/01/2024 08:03:13 AM Interpretation: Performing Lab: Notes/Report: LDL-CHOL, DIRECT 52 <130 mg/dL ADULT LDL CHOLESTEROL CLASSIFICATION <100mg/dL Optimal 100-129 Near/Above Optimal 130-159mg/dL Borderline High >160mg/dL High Risk Desirable range <100 mg/dL for patients with CHD or diabetes and <70 mg/dL for diabetic patients with known heart disease. UNLESS OTHERWISE INDICATED, ALL TESTING PERFORMED AT: [employer] [address] [place] [address] [employer]INTING: KARYNA AGUILAR M.D. CLIA NUMBER [id number] CAP ACCREDITATION AUID [id number] LIPID PANEL WITH REFLEX TO D IRECT LDL Reviewed date:10/01/2024 08:03:39 AM Interpretation: Performing Lab: Notes/Report: CHOLESTEROL 138 100-199 mg/dL TRIGLYCERIDES 327 20-149 mg/dL VLDL-CHOL, CALCULATED 65 <30 mg/dL HDL-CHOL 35 >=50 mg/dL LDL-CHOL, CALCULATED 38 <130 mg/dL ADULT LDL CHOLESTEROL CLASSIFICATION <100mg/dL Optimal 100-129 Near/Above Optimal 130-159mg/dL Borderline High >160mg/dL High Risk Desirable range <100 mg/dL for patients with CHD or diabetes and <70 mg/dL for diabetic patients with known heart disease. Direct LDL is recommended for patients with triglycerides >400. LDL/HDL 1.1 <4.1 LDL/HDL RATIO MALE FEMALE below average risk <2.3 <2.3 average risk <5.0 <4.1 moderate risk <7.1 <5.6 high risk >7.1 >5.6 CHOL/HDL 3.9 2.0-4.5 COMPREHENSIVE METABOLIC PANE L WITH GFR Reviewed date:10/01/2024 08:03:47 AM Interpretation: Performing Lab: Notes/Report: GLUCOSE 114 70-100 mg/dL BUN 11 6-20 mg/dL CALCIUM 9.4 8.6-10.5 mg/dL CREATININE, BLOOD 0.71 0.51-1.15 mg/dL eGFR (2020 CKD-EPI) 112 >59 mL/min/1.73m2 SODIUM 143 135-148 mmol/L POTASSIUM 3.7 3.5-5.4 mmol/L CHLORIDE 108 96-107 mmol/L CO2 21 18-32 mmol/L ANION GAP 14 7-16 mmol/L T. BILIRUBIN <0.2 <1.3 mg/dL ALK PHOS 79 30-101 U/L AST-SGOT 16 9-40 U/L ALT-SGPT 28 5-33 U/L T. PROTEIN 7.0 6.0-8.3 g/dL ALBUMIN 4.4 3.5-5.2 g/dL Lipid Panel Reviewed date:02/23/2025 09:33:40 AM Interpretation: Performing Lab: Notes/Report: , [facility] Triglycerides 207 <=150 mg/dL Cholesterol 121 <=200 mg/dL HDL Cholesterol 45 40-60 mg/dL > or =60 mg/dl - LOW CARDIOVASCULAR RISK <40 mg/dl - HIGH CARDIOVASCULAR RISK LDL Cholesterol Calculated 35.0 <100 mg/dl OPTIMAL 100-129 mg/dl NEAR OR ABOVE OPTIMAL 130-159 mg/dl BORDERLINE HIGH 160-189 mg/dl HIGH >190 mg/dl VERY HIGH VLDL CHOLESTEROL 41.4 Chol HDL Ratio 2.7 3.3 - 4.4 LOW RISK 4.4 - 7.1 AVERAGE RISK 7.1 - 11.0 MODERATE RISK >11.0 HIGH RISK Performing Lab: see note ML - [facility] LB POCT A1C Reviewed date:10/28/2024 02:51:59 PM Interpretation:6.7 Performing Lab: Notes/Report: Reason For Referral No Information Medications Medication SIG (Take, Route, Frequency, Duration) Notes Start Date End Date Status Fish Oil 1000 MG Take 2 capsules by mouth twice daily; Duration: 90 Active Rosuvastatin Calcium 20 MG Take 1 tablet by mouth once daily for 90 days; Duration: 90 days Active FLUoxetine HCl 60 MG 1 tablet Orally Onc e a day; Duration: 30 days Active Alosetron HCl 0.5 MG 1 tablet Orally twi ce a day 07/28/2024 Active medroxyPROGESTERone Acetate 150 MG/ML 0.65 mL Intramuscular every 3 months; Duration: 90 days Active QUEtiapine Fumarate 100 MG 4 tablet at b edtime Orally Once a day; Duration: 30 days Active Amitriptyline HCl 25 MG 2 tablet at bedt saul Orally at bedtime; Duration: 90 days Active Topiramate 100 MG TAKE 1 TABLET BY FLAVIO TH ONCE DAILY Oral Once a day; Duration: 90 days Active traZODone HCl 50 MG TAKE 1 TABLET BY FLAVIO TH AT BEDTIME Oral; Duration: 30 Days Active Exddiktand-ATNY-Axxmfozv 50-325-40 MG 1 capsule as needed Oral as needed; Duration: 30 days Active Ozempic (0.25 or 0.5 MG/DOSE ) 2 MG/3ML 0.25 mg Subcutaneous once a week; Duration: 30 days 10/28/2024 Active Immunizations Vaccine Route Administration Date Status Comme nts *Influenza-Flucelvax -Private IM Intramuscular 09/04/2023 Administered *Influenza-Flucelvax -Private IM Intramuscular 07/28/2024 Administered *Tdap (Adacel)-VFC IM Intramuscular 12/29/2015 Administere d Status:Complete ,Reason:Given or N/A Influenza, seasonal, injectable, preservative free, 3 yrs and above Unknown 05/26/2025 Administered [facility] pharmacy Social History Tobacco Use: Social History Observation Description Date Details (start date - stop date) Never Smoker NA - NA Sex Assigned At : Social History Observation Description Sex Assigned At Female Tobacco Use/Smoking Question Answer Notes Tobacco use: nonsmoker patient enter ed data CAGE-AID Questionnaire (2018 Edition) Question Answer Notes Have you ever felt that you ought to cut down on your drinking or drug use? No patient entered data Have people annoyed you by c riticizing your drinking or drug use? No patient entered data Have you ever felt bad or gu ilty about your drinking or drug use? No patient entered data Have you ever had a drink or used drugs first thing in the morning to steady your nerves or to get rid of a hangover? No patient entered data CAGE-AID Score 0 Interpretation Negative PRAPARE Question Answer Notes Date Completed/Updated: 10/28/2024 reinaldo hurtado entered data What is your current housing situation? I have housing patient entered data Are you worried about losing your housing? No patient entered data What is the highest level of school that you have finished? 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 Check all that apply I do not have problems meeting my needs Has lack of transportation k ept you from medical appointments, meetings, work or from getting things needed for daily living? No How often do you see or talk to people that you care about and feel close to? (For example: talking to friends on the phone, visiting friends or family, going to denominational or club meetings) 3 to 5 times a week patient entered data How stressed are you? Stress is when someone feels tense, nervous, anxious, or can't sleep at night because their mind is troubled A little bit patient entered data In the past year have you sp ent more than 2 nights in a row in a retirement, penitentiary, care home center, or juvenile correctional facility? No patient entered data Are you a refugee? No patient en tered data What country are you from? [place] pa tient entered data Do you feel physically and emotionally safe where you currently live? Yes patient entered data In the past year, have you b een afraid of your partner or ex-partner? I have not had a partner in the past year patient entered data PRAPARE Score: 4 Problems Problem Type SNOMED Code ICD Code Onset Dates Problem Status W/U Status Risk Notes Problem Morbid obesity (disorder) (301069583) Morbid (severe) obesity due to excess calories (E66.01) Active confirmed Problem Type II diabetes mellitus without complication (394853687) Type 2 diabetes mellitus without complication, without long-term current use of insulin (E11.9) Active confirmed Problem Morbid obesity (205761148) Obesity, Class III, BMI 40-49.9 (morbid obesity) (E66.01) Active confirmed Problem Hypertriglyceridemia (606026202) Hypertriglyceridemia (E78.1) Active confirmed Problem Hyperlipidaemia (02760367) Hyperlipidemia, unspecified hyperlipidemia type (E78.5) Active confirmed Vital Signs Heart Rate 96 /min 05/26/2025 Trinity Aguilar 05/26/2025 03:48:17 PM EDT > Temperature 98.7 degrees Fahrenheit 05/26/2025 Trinity Saleh 05/26/2025 03:48:17 PM EDT > Respiratory Rate 18 /min 05/26/2025 Kameron Aguilar 05/26/2025 03:48:17 PM EDT > Height-cm 158.75 cm 05/26/2025 Trinity Aguilar 05/26/2025 03:48:17 PM EDT > Blood pressure diastolic 88 mm Hg 05/26/2025 Trinity Machado 05/26/2025 03:48:17 PM EDT > Oximetry 94 % 05/26/2025 Trinity Aguilar 05/26/2025 03:48:17 PM EDT > Weight-kg 112.17 kg 05/26/2025 Trinity Aguilar 05/26/2025 03:48:17 PM EDT > Height 62.50 in 05/26/2025 Trinity Aguilar 05/26/2025 03:48:17 PM EDT > Blood pressure systolic 134 mm Hg 05/26/2025 Trinity Saleh 05/26/2025 03:48:17 PM EDT > Weight 247.3 lbs 05/26/2025 Trinity Aguilar 05/26/2025 03:48:17 PM EDT > BMI 44.51 kg/m2 05/26/2025 Trinity Aguilar 05/26/2025 03:48:17 PM EDT > Encounters Encounter Location Date Provider Diagnosis Main [address] [place], [place] [id number] 07/28/2024 Radha Howard Hyperlipidemia, unsp ecified hyperlipidemia type E78.5 ; Flu vaccine need Z23 ; Dietary counseling Z71.3 ; Exercise counseling Z71.82 and Morbid obesity with BMI of 45.0-49.9, adult E66.01 Main [address] [place], [place] [id number] 10/28/2024 Radha Howard Hyperlipidemia, unsp ecified hyperlipidemia type E78.5 ; Type 2 diabetes mellitus without complication, without long-term current use of insulin E11.9 ; Dietary counseling Z71.3 ; Exercise counseling Z71.82 ; Morbid (severe) obesity due to excess calories E66.01 and Body mass index [BMI] 40.0-44.9, adult Z68.41 Main [address] [place], [place] [id number] 12/08/2024 Radha [facility] Type 2 diabetes kerline itus without complication, without long-term current use of insulin E11.9 ; Obesity, Class III, BMI 40-49.9 (morbid obesity) E66.01 and Hypertriglyceridemia E78.1 Main [address] [place], [place] [id number] 05/26/2025 [facility] Encounter for wellne ss examination in adult Z00.00 ; Type 2 diabetes mellitus without complication, without long-term current use of insulin E11.9 ; Dietary counseling Z71.3 and Exercise counseling Z71.82 Main [address] [place], [place] [id number] 07/08/2024 Maye Lior Hyperlipidemia, unsp ecified hyperlipidemia type E78.5 Main [address] [place], [place] [id number] 10/28/2024 Radha [facility] Assessments Encounter Date Diagnosis (ICD Code) Assessment Notes Treatment Notes Treatment Clinical Notes Section Notes 07/08/2024 Hyperlipidemia, unspecified hyperlipidemia type (ICD-10 - E78.5) 07/28/2024 Hyperlipidemia, unspecified hyperlipidemia type (ICD-10 - E78.5) Will get blood work. Advise to continue current medication. Discussed diet and exercise. PVU 07/28/2024 Flu vaccine need (ICD-10 - Z23) 10/28/2024 Type 2 diabetes mellitus without complication, without long-term current use of insulin (ICD-10 - E11.9) A1c 6.7 today which is in diabetic range. Previously wa sin prediabetic range. This is newly diagnosed diabetes. I will start her on Ozempic to help her DM given her her BMI I thing this is the best choice to start with. SI disucssed. Discussed diet and exercise in detail. Will f/u in 4 weeks 10/28/2024 Hyperlipidemia, unspecified hyperlipidemia type (ICD-10 - E78.5) Worsening triglycerides with nomal cholesterol levels. I will continue statin and fish oil. Discussed diet and exercise 12/08/2024 Type 2 diabetes mellitus without complication, without long-term current use of insulin (ICD-10 - E11.9) Doing well. Will refill ozempic and f/u in 3 months 12/08/2024 Obesity, Class III, BMI 40-49.9 (morbid obesity) (ICD-10 - E66.01) Doing well 05/26/2025 Encounter for [facility] ss examination in adult (ICD-10 - Z00.00) Pt is here for wellness today. Overall health is okay. I advised to get baseline tests and pt is agreeable for that. I advised regular exercise and eating a balanced diet with focus on eating less fried and fatty foods and eating more fresh fruits and vegetable in an attempt to achieve and maintain a healthy BMI and PVU We discussed the importance of vaccination including covid shots and yearly flu shots and all questions were answered in detail today. Pt will see us back in 2 week to discuss lab 12/08/2024 Hypertriglyceridemia (ICD-10 - E78.1) Blood work before next appt 10/28/2024 Dietary counseling (ICD-10 - Z71.3) 07/28/2024 Dietary counseling (ICD-10 - Z71.3) 07/28/2024 Exercise counseling (ICD-10 - Z71.82) 10/28/2024 Exercise counseling (ICD-10 - Z71.82) 05/26/2025 Type 2 diabetes mellitus without complication, without long-term current use of insulin (ICD-10 - E11.9) 07/28/2024 Morbid obesity with BMI of 45.0-49.9, adult (ICD-10 - E66.01) 10/28/2024 Morbid (severe) obes ity due to excess calories (ICD-10 - E66.01) 10/28/2024 Body mass index [BMI ] 40.0-44.9, adult (ICD-10 - Z68.41) 05/26/2025 Dietary counseling (ICD-10 - Z71.3) 05/26/2025 Exercise counseling (ICD-10 - Z71.82) 07/28/2024 Other Learning About High Triglycerides material was published Plan Of Treatment Pending Test Test Name Order Date MICROALBUMIN RANDOM SPEC 05/26/2025 COMPREHENSIVE METABOLIC PANEL WITH GFR 0 05/26/2025 HEMOGLOBIN A1C 05/26/2025 Next Appt Details Provider Name:Radha Lawrence, 06/22/2025 08:15:00 AM, [address], [place], [id number], Insurance Providers Payer Name Payer Address Payer Phone Subscriber Number Group Number Insured Name Patient Relationship to Insured Coverage Start Date Coverage End Date [facility] [employer] MCR [address] [place] [address] [id number] Jodi Toledo Self - patient is the insured 5 [employer] [address] [place], [place] [id number] Jodi Toledo Self - patient is the insured 2 Medical (General) History Medical History History ICD Code Migraine G43.909 Sleep apnea G47.30 Hypertriglyceridemia E78.1 Insomnia, unspecified type G47.00 Mood disorder F39 Obsessive-compulsive disorder, unspecifi ed type F42.9 Hyperlipidemia, unspecified hyperlipidem ia type E78.5 Surgical History Surgery Date(Month/Year) Fissure Hospitalization History Reason Date(Month/Year) [facility] 3 days
--- OUTSIDE RECORDS SUMMARY | 2025-06-17 08:36 | XMS_ITS | Encounter Summary ---
Author Organization [facility] Address [address] [place] [address] Care Team Providers Care Blacksmith Assistant Name Role Phone Deedee Wang DO Primary Care Provider [phone] Coretta Josue DO Unavailable [phone] Meggan Freeman DO Unavailable [phone] Encounter Details Date Type Department Care Team (Late st Contact Info) Description 03/30/2023 Abstract [facility] [address] [place] [id number] Margret Lyman NP Social History Tobacco Use Types Packs/Day Years Used Date Smoking Tobacco: Never Smokeless Tobacco: Never Tobacco Cessation:Counseling Given: Not Answered Alcohol Use Standard Drinks/Week Comments Not Currently 0 (1 standard drink = 0.6 oz [...] on filedocumented in this encounter Care Teams Blacksmith Assistant Relationship Specialty Start Date End Date Deedee Wang DO [address] [place] [address] PCP - General Family Medicine 7/12/23 Meggan Freeman DO [address] [place] [address] PCP - [facility] 09/03/24 Coretta Josue DO [address] [place] [address] Referring Physician Neurology 10/20/24 documented as of this encounter
--- OUTSIDE RECORDS SUMMARY | 2025-06-17 08:36 | XMS_ITS | Encounter Summary ---
Author Organization [facility] Address [address] [place] [address] Care Team Providers Care Continuous Process Rotary Drum Tanner Name Role Phone Deedee Wang DO Primary Care Provider [phone] Coretta Josue DO Unavailable [phone] Meggan Freeman DO Unavailable [phone] Encounter Details Date Type Department Care Team (Latest Contact Info) Description 06/03/2025 Travel Social History Tobacco Use Types Packs/Day Years [...] on filedocumented in this encounter Care Teams Continuous Process Rotary Drum Tanner Relationship Specialty Start Date End Date Deedee Wang DO [address] [place] [address] PCP - General Family Medicine 03/14/23 Meggan Freeman DO [address] [place] [address] PCP - [facility] 09/03/24 Coretta Josue DO [address] [place] [address] Referring Physician Neurology 10/20/24 documented as of this encounter
--- OUTSIDE RECORDS SUMMARY | 2025-06-17 08:36 | XMS_ITS | Encounter Summary ---
Author Organization [facility] Address [address] [place] [address] Care Team Providers Care Skin Pass Operator Name Role Phone Deedee Wang DO Primary Care Provider [phone] Coretta Josue DO Unavailable [phone] Meggan Freeman DO Unavailable [phone] Encounter Details Date Type Department Care Team (Latest Contact Info) Description 06/04/2025 Travel Social History Tobacco Use Types Packs/Day [...] on filedocumented in this encounter Care Teams Skin Pass Operator Relationship Specialty Start Date End Date Deedee Wang DO [address] [place] [address] PCP - General Family Medicine 03/14/23 Meggan Freeman DO [address] [place] [address] PCP - [facility] 09/03/24 Coretta Josue DO [address] [place] [address] Referring Physician Neurology 10/20/24 documented as of this encounter
--- OUTSIDE RECORDS SUMMARY | 2025-06-17 08:39 | XMS_ITS | CCD ---
Author Organization [facility] Care Team Providers Care Qualitative Field Project Manager Name Role Phone Wilfredo Ortiz Unavailable Jessa Gordillo Unavailable MD Wilfredo Ortiz Attending Provider DO Deedee Whiting Primary Care Provider Unavailable Primary Care Provider UnavailNoe Bailey Primary Care Provider INOCENCIA JOHNSON Admitting Unavailable INOCENCIA JOHNSON Attending Unavailable Noe Rico Primary Care Provider MAYLIN DOWNEY Admitting Unavailable MAYLIN DOWNEY Attending Unavailable NOE RICO Primary Care Unavailab DO Deedee Fung Primary Care Provider MD Raciel Espinoza Admit Provider MD Raciel Espinoza Attending Provider Noe Rico Primary Care Provider [phone] [facility] SHERRIE DELGADO Attending Unavailable DR MANUEL FU Consulting Unavailable LEONARD ., SHERRIE Admitting Unavailable LEONARD ., SHERRIE Consulting Unavailable LEONARD ., SHERRIE Consulting Unavailable [facility] LEONARD ., SHERRIE Admitting Unavailable LEONARD Gibson, SHERRIE Attending Unavailable BINU Gibson, DR ENGLISH Admitting Unavailable BINU Gibson, DR ENGLISH Attending Unavailable [facility] ERNESTO LEVY Consulting Unavailabl e MISC, DR JAEGER Attending Unavailable MISC, DR JAEGER Consulting Unavailable [facility] MISC, DR JAEGER Admitting Unavailable MISC, DR JAEGER Admitting Unavailable MISC, DR JAEGER Attending Unavailable MISC, DR JAEGER Consulting Unavailable [facility] ZIEBER, DR MANUEL Gates Consulting Unavailable RUMSCHLAG, DEEDEE Admitting Unavailable RUMSCHLAGDEEDEE Attending Unavailable [facility] RUMSCHLAG, DEEDEE Consulting Unavailable HAY ., DR ENGLISH Attending Unavailable [facility] HAY ., DR ENGLISH Admitting Unavailable MARKER ., DR OCHOA Consulting Unavailable Noe Rico Sathish Primary Care Provider [phone] NOE RICO [facility] Unavailab INOCENCIA Juarez Attending Unavailable TRISHA, NOE RIBERA Referring Unavailab le TRISHA, NOE [facility] Unavailab le BAN, MAYLIN Attending Unavailable TRISHA, NOE RIBERA Referring Unavailab le TRISHA, NOE [facility] Unavailab le BAN, MAYLIN Attending Unavailable TRISHA, NOE [facility] Unavailab le BAN, MAYLIN Attending Unavailable TRISHA, NOE [facility] Unavailab krystal BAN, MAYLIN Referring Unavailable [place] DO Deedee Primary [facility] Coretta Josue DO Unavailable Services, [facility] Provider Pb Marques Attending Unavailab Pb Joiner Admitting Unavailab le Felipe Deedee Primary Care Unavailable DELICIA SKY Attending Unavailable LOGANGLORIA Attending Unavailable LOGAN, GLORIA T Referring Unavailable LISA PEPE Attending Unavailable LOGAN, GLORIA T Referring Unavailable MARY BOWLING Attending Unavailable LOGAN, GLORIA T Referring Unavailable MARY BOWLING Attending Unavailable LOGAN, GLORIA T Referring Unavailable RADHA VASQUEZ Attending Unavailable WHITLEY ALONZO Attending Unavailable LOGAN, GLORIA T Referring Unavailable MARY BOWLING Attending Unavailable LOGAN, GLORIA T Referring Unavailable LISA PEPE Attending Unavailable LOGAN, GLORIA T Referring Unavailable WHITLEY ALONZO Attending Unavailable LOGAN, GLORIA T Referring Unavailable WHITLEY ALONZO Attending Unavailable LOGAN, GLORIA T Referring Unavailable KELWHITLEY JEAN BAPTISTE Attending Unavailable LOGAN, GLORIA T Referring Unavailable LOGAN, GLORIA T Attending Unavailable RADHA VASQUEZ Referring Unavailable Bond-Meggan Miller DO Unavailable Allergies Allergy Classification Reported Allergen(s) Allergy Type Date of Onset Reaction(s) Facility (4 sources) penicillAMINE Drug Allergy Disconnect [place] [facility] Other (20 sources) Penicillins; Translations: [PENICILLINS] Allergy to substance 05-23-20 17 Unknown, Anaphylaxis [facility] (1 source) Penicillin Drug Allergy 02-23-20 22 [facility] (1 source) penicillAMINE Drug Allergy 08-07-20 24 [facility] Repository Medications Current Medications Medication Drug Class(es) Dates Sig (Normalized) Sig (Original) acetaminophen 325 mg / butalbital 50 mg / caffeine 40 mg oral tablet (20 sources) Barbiturate, Central Nervous System Stimulant, Methylxanthine Start: 04-07-2024 End: 04-28-2024 take 1 tablet by mouth every six hours for headache butalbital-acetam inophen-caffeine 50-325-40 MG tablet Indications: Migraine with aura and without status migrainosus, not intractable Take 1 tablet by mouth every 6 (six) hours if needed for headaches 30 tablet 1 04/28/2024 Active Start: 01-10-2022 acetaminophen 325 mg-caffeine 40 mg-butalbital 50 mg (FIORICET) per tablet TAKE 1 TABLET BY MOUTH AT THE ONSET OF MIGRAINE, MAY REPEAT EVERY 4 TO 6 HOURS. NO MORE THAN 2 TIMES A DAY AND 2 TIMES A WEEK 0 01/10/2022 Active Comment on above: TAKE 1 TABLET BY FLAVIO AT THE ONSET OF MIGRAINE, MAY REPEAT EVERY 4 TO 6 HOURS. NO MORE THAN 2 TIMES A DAY AND 2 TIMES A WEEK acetaminophen 325 mg / butalbital 50 mg / caffeine 40 mg / codeine phosphate 30 mg oral capsule (8 sources) Opioid Agonist, Barbiturate, Central Nervous System Stimulant, Methylxanthine take 1 capsule by mouth every four hours as needed for headache butalbital-acetamino p-caf-cod (FIORICET WITH CODEINE) [id number] mg per capsule Take 1 capsule by mouth every 4 (four) hours as needed for headaches. Active alosetron 0.5 mg oral tablet (3 sources) Serotonin-3 Receptor Antagonist Start: 11-25-2 024 take 1 tablet by mouth in the morning, then take 1 tablet by mouth at bedtime alosetron (LOTRONEX) 0.5 MG tablet Take 1 tablet (0.5 mg total) by mouth in the morning and 1 tablet (0.5 mg total) before bedtime. 07/28/2024 Active amitriptyline hydrochloride 25 mg oral tablet (20 sources) Tricyclic Antidepressant Start: take 2 tablets by mouth at bedtime amitriptyline (Elavil) 25 MG tablet Indications: Migraine without aura and without status migrainosus, not intractable TAKE 2 TABLETS BY MOUTH AT BEDTIME 60 tablet 2 01/21/2025 Active Start: 09-08-2024 End: 10-20-2024 take 2 tablets by mouth at bedtime amitriptyline (Elavil) 25 MG tablet Indications: Migraine without aura and without status migrainosus, not intractable (CMS/HCC) TAKE 2 TABLETS BY MOUTH AT BEDTIME 30 tablet 09/08/2024 10/20/2024 Discontinued (Reorder) Start: 04-09-2024 take 2 tablets by mo ut at bedtime amitriptyline (Elavil) 25 MG tablet Indications: Migraine without aura and without status migrainosus, not intractable (CMS/HCC) Take 2 tablets (50 mg) by mouth at bedtime 30 tablet 5 04/09/2024 Active Start: 03-27-2022 take 50 mg by mouth at bedtime Amitriptyline Active 50 MG PO Bedtime March 26, 2022 11:00pm Start: 04-10-2019 amitriptyline (ELAVIL) 25 mg tablet Take 25 mg by mouth. 0 04/10/2019 Active Amitriptyline HC l Active Comment on above: Take 25 mg by mouth. atorvastatin 20 mg oral tablet (20 sources) HMG-CoA Reductase Inhibitor take 1 tablet by mouth once daily atorvastatin (Lipitor) 20 MG tablet Take 20 mg by mouth Daily Active Aviane (4 sources) Aviane Active Ztcscmyfuq-PPSY-Qzimqyd e (4 sources) Butalbital-APAP- Ca ffeine Active Calcium (4 sources) Phosphate Binder, Calcium Calcium + D3 Active calcium carbonate 1500 mg oral tablet (20 sources) End: 025 take 1 tablet by mouth in the morning calcium carbonate 1500 (600 Ca) MG tablet Take 600 mg by mouth in the morning and 600 mg in the evening. Take with meals. Active Comment on above: Take 600 mg by mouth . clarithromycin 500 mg oral tablet (1 source) Macrolide Antimicrobial Start: take 2 tablets by mouth once daily at mealtime Biaxin XL 500 MG 2 tablets with food Orally Once a day for 7 day(s) Nov, Active dicyclomine hydrochloride 20 mg oral tablet (20 sources) Anticholinergic Start: 024 take 1 tablet by mouth in the morning dicyclomine (Bentyl) 20 MG tablet Take 20 mg by mouth in the morning and 20 mg before bedtime. 01/10/2024 Active docosahexaenoic acid 120 mg / eicosapentaenoic acid 180 mg oral capsule (20 sources) take 1 capsule by mouth in the morning omega-3 (Fish Oil) 1000 MG capsule Take 1,000 mg by mouth in the morning. Active FLUoxetine 40 mg oral capsule (20 sources) Serotonin Reuptake Inhibitor Start: take 1 capsule by mouth in the morning FLUoxetine (PROzac) 40 mg capsule Take 1 capsule (40 mg total) by mouth in the morning. 08/08/2022 Active Start: 03-27-2022 End: 07-06-2022 take 60 mg by mouth at bedtime Fluoxetine Discontinued 60 MG PO Bedtime March 26, 2022 11:00pm July 06, 2022 7:01pm Start: 03-27-2022 End: 03-27-2022 Fluoxetine Discontinued MG J nicholas 2021 11:00pm March 27, 2022 6:23am Start: 02-15-2022 End: 05-11-2022 take 3 capsules by mouth at bedtime FLUoxetine (PROZAC) 20 mg capsule TAKE 3 CAPSULES BY MOUTH AT BEDTIME - CHANGE IN DOSAGE 0 02/15/2022 05/11/2022 Discontinued Start: 04-10-2019 take 2 capsules by m outh once daily at bedtime FLUoxetine (PROZAC) 20 mg capsule Take 40 mg by mouth daily at bedtime. 0 04/10/2019 Active PROzac Active Comment on above: TAKE 3 CAPSULES BY M OUTH AT BEDTIME - CHANGE IN DOSAGE Take 40 mg by mouth daily at bedtime. hydrocortisone 10 mg/ml / neomycin 3.5 mg/ml / polymyxin b [id number] unt/ml otic solution (1 source) Aminoglycoside Antibacterial, Polymyxin-class Antibacterial, Corticosteroid Start: [id number]-Zdvyyrhsg-[id number] 4 drops into affected ear Otic Three times a day for 7 day(s) Nov, Active nitrofurantoin, macrocrystals 25 mg / nitrofurantoin, monohydrate 75 mg oral capsule (1 source) Nitrofuran Antibacterial Start: End: take 1 capsule by mouth twice daily nitrofurantoin monohydrate and macrocrystal (MACROBID) 100 mg capsule Take 1 capsule by mouth twice daily. 0 05/08/2022 05/15/2022 Active Comment on above: Take 1 capsule by [facility] twice daily. omega-3 fatty acids/fish oil (OMEGA 3 FISH OIL ORAL) (3 sources) take 1000 mg by mouth in the morning omega-3 fatty acids/fish oil (OMEGA 3 FISH OIL ORAL) Take 1,000 mg by mouth in the morning. Active OZEMPIC 0.25 mg or 0.5 mg (2 mg/3 mL) pen injector (3 sources) OZEMPIC 0.25 mg or 0.5 mg (2 mg/3 mL) pen injector Inject 2 mg under the skin once a week. Active QUEtiapine 400 mg oral tablet (20 sources) Atypical Antipsychotic Start: take 1 tablet by mouth once daily QUEtiapine (SEROquel) 400 mg tablet Take 1 tablet (400 mg total) by mouth nightly. 02/13/2025 Active Start: 08-08-2022 [facility] QUEtiapine (SEROquel) 100 mg tablet Take 1 tablet (100 mg total) by mouth nightly. 08/08/2022 Active Start: 07-09-2022 take 100 mg by mouth once daily at bedtime Quetiapine Active 100 MG PO Daily at bedtime July 08, 2022 11:00pm Start: 03-27-2022 End: 07-09-2022 take 50 mg by mouth at bedtime Quetiapine Discontinued 50 MG PO Bedtime March 26, 2022 11:00pm July 09, 2022 11:23am Start: 04-10-2019 take 1.5 tablets by mouth once daily QUEtiapine (SEROQUEL) 25 mg tablet Take 25 mg by mouth. Takes 1.5 tablets by mouth daily 0 04/10/2019 Active Start: 04-10-2019 QUEtiapine (SE ROQUEL) 25 mg tablet Take 25 mg by mouth. 0 04/10/2019 Active QUEtiapine Fumar ate Active Comment on above: Take 25 mg by mouth. Take 25 mg by mouth. Takes 1.5 tablets by mouth daily rosuvastatin calcium 5 mg oral tablet (20 sources) HMG-CoA Reductase Inhibitor Start: take 1 tablet by mouth in the morning rosuvastatin (CRESTOR) 5 mg tablet Take 1 tablet (5 mg total) by mouth in the morning. 03/20/2022 Active take 1 tablet by mouth in the mo rning rosuvastatin (Crestor) 20 MG tablet Take 20 mg by mouth in the morning. Active Comment on above: Take 5 mg by mouth o nce daily. topiramate 100 mg oral tablet (20 sources) Start: 03-27-2022 take 1 tablet by mouth once daily topiramate (Topamax) 100 MG tablet Indications: Migraine without aura and without status migrainosus, not intractable Take 1 tablet by mouth once daily 30 tablet 2 01/21/2025 Active Topamax Active traZODone hydrochloride 50 mg oral tablet (20 sources) Serotonin Reuptake Inhibitor Start: 04-03-2023 traZODone (Desyrel) 50 MG tablet 04/03/2023 Active Completed/Discontinued Medications Medication Drug Class(es) Dates Sig (Normalized) Sig (Original) docusate sodium 100 mg oral capsule (8 sources) Start: 03-27-2022 take 1 capsule by mouth twice daily docusate sodium (COLACE) 100 mg capsule Take 100 mg by mouth twice daily. 0 04/25/2022 Active Comment on above: Take 100 mg by mouth twice daily. lidocaine 0.05 mg/mg topical ointment (10 sources) Antiarrhythmic, Amide Local Anesthetic Start: 04-07-2022 lidocaine (XYLOCAINE) 5 % ointment APPLY NEEDED FOUR TIMES A DAY 0 04/07/2022 Active Start: 03-27-2022 End: 07-06-2022 Lidocaine Discontinued 1 AGUEDA LIC TOPICAL Four times daily March 26, 2022 11:00pm July 06, 2022 7:06pm Comment on above: APPLY NEEDED FOUR TIMES A DAY 1 ml medroxyPROGESTERone acetate 150 mg/ml injection (20 sources) Progestin Start: End: medroxyPROGESTERone (DEPO-PROVERA) injection 150 mg Start: 05-20-2025 End: 05-20-2025 inject 150 mg by intramuscular injection once 150 mg, intramuscular, Once, On Sun05/20/25 at 1530, For 1 dose, Look-alike/sound-alike medication - verify indication for use. Start: 03-04-2025 End: 03-04-2025 medroxyPROGESTERone (DEPO-NV OVERA) injection 150 mg Start: 03-04-2025 End: 03-04-2025 inject 150 mg by intramuscular injection once 150 mg, intramuscular, Once, On Sun03/04/25 at 1445, For 1 dose, Look-alike/sound-alike medication - verify indication for use. Start: 12-17-2024 End: 12-17-2024 medroxyPROGESTERone (DEPO-NV OVERA) injection 150 mg Start: 12-17-2024 End: 12-17-2024 inject 150 mg by intramuscular injection once 150 mg, intramuscular, Once, On Sun12/17/24 at 1445, For 1 dose, Look-alike/sound-alike medication - verify indication for use. Start: 10-01-2024 End: 10-01-2024 medroxyPROGESTERone (DEPO-NV OVERA) injection 150 mg Start: 10-01-2024 End: 10-01-2024 inject 150 mg by intramuscular injection once 150 mg, intramuscular, Once, On Sun10/01/24 at 1300, For 1 dose, Look-alike/sound-alike medication - verify indication for use. Start: 07-02-2024 End: 07-02-2024 medroxyPROGESTERone (DEPO-NV OVERA) injection 150 mg Start: 07-02-2024 End: 07-02-2024 inject 150 mg by intramuscular injection once 150 mg, intramuscular, Once, On Sun07/02/24 at 1400, For 1 dose, Look-alike/sound-alike medication - verify indication for use. Start: 04-15-2024 End: 04-15-2024 medroxyPROGESTERone (DEPO-NV OVERA) injection 150 mg Start: 04-15-2024 End: 04-15-2024 inject 150 mg by intramuscular injection once 150 mg, intramuscular, Once, On Sun04/15/24 at 1500, For 1 dose, Look-alike/sound-alike medication - verify indication for use. Start: 01-23-2024 End: 01-23-2024 medroxyPROGESTERone (DEPO-NV OVERA) injection 150 mg Start: 01-23-2024 End: 01-23-2024 inject 150 mg by intramuscular injection once 150 mg, intramuscular, Once, On Sun01/23/24 at 1500, For 1 dose, Look-alike/sound-alike medication - verify indication for use. Start: 10-25-2023 End: 10-25-2023 medroxyPROGESTERone (DEPO-NV OVERA) injection 150 mg Start: 10-25-2023 End: 10-25-2023 medroxyPROGESTERone (DEPO-NV OVERA) injection 150 mg inject 0.65 mL by intramuscular injection every three months medroxyPROGESTERone (Depo-Provera) 150 MG/ML suspension prefilled syringe injection syringe 0.65 mL Intramuscular every 3 months for 90 days Active medroxyPROGESTER one (DEPO-PROVERA) 150 mg/mL injection Inject 1 mL (150 mg total) into the appropriate muscle every 3 (three) months. Active Comment on above: Inject 150 mg intram uscularly every 3 months. 1 ml methylPREDNISolone acetate 40 mg/ml injection (4 sources) Corticosteroid Start: 06-04-20 End: 06-04-20 methylPREDNISolone acetate (DEPO-Medrol) injection 40 mg Start: 06-04-2025 End: 06-04-2025 40 mg, Intra-articular, Once PRN Procedure, Starting on Sun06/04/25 at 1614, For 1 dose Problems Active Problems Problem Classification Problem Date Documented Da te Episodic/Chronic Abdominal pain (4 sources) Abdominal pain; Translations: [Unspecified abdominal pain] Onset: 06-22-2022 Resolved: 02-22-2022 Episodic Anal and rectal conditions (9 sources) Other specified diseases of anus and rectum; Translations: [Acute anal fissure] Onset: 02-22-2022 Resolved: 02-22-2022 Episodic Anxiety disorders (20 sources) Anxiety; Translations: [Anxiety disorder, unspecified] Onset: 05-11-2022 05-11-2022 Chronic Attention-deficit, conduct, and disruptive behavior disorders (20 sources) Disruptive behavior disorder; Translations: [Conduct disorder, unspecified] Onset: 04-05-2024 04-05-2024 Chronic Contraceptive and procreative management (9 sources) Contraception ; Translations: [Encounter for surveillance of injectable contraceptive] 10-01-2024 Episodic Developmental disorders (18 sources) Intellectual disability; Translations: [Unspecified intellectual disabilities] Onset: 03-09-2022 Chronic Disorders of lipid metabolism (20 sources) Hyperlipidemia; Translations: [Hyperlipidemia, unspecified] Onset: 05-11-2022 Chronic Epilepsy; convulsions (1 source) Absence epileptic syndrome, not intractable, without status epilepticus; Translations: [ABSENCE EPI SYND NOT INTRACT W/O SE] Onset: 02-24-2022 Chronic Gastrointestinal hemorrhage (4 sources) Rectal hemorrhage; Translations: [Hemorrhage of anus and rectum] Onset: 02-22-2022 Resolved: 02-22-2022 Episodic Headache; including migraine (20 sources) Migraine; Translations: [Migraine, unspecified, not intractable, without status migrainosus] Onset: 05-11-2022 05-11-2022 Chronic Mood disorders (6 sources) Mood disorder; Translations: [Unspecified mood [affective] disorder] Onset: 05-11-2022 05-11-2022 Chronic Osteoarthritis (4 sources) Osteoarthritis of right knee joint; Translations: [Unilateral primary osteoarthritis, right knee] 06-04-2025 Chronic Other aftercare (3 sources) Surgical follow-up; Translations: [Encounter for follow-up examination after completed treatment for conditions other than malignant neoplasm] Episodic Other female genital disorders (4 sources) Disorder of menstruation; Translations: [Abnormal uterine and vaginal bleeding, unspecified] Chronic Other gastrointestinal disorders (3 sources) Diarrhea; Translations: [Diarrhea, unspecified] Episodic Other injuries and conditions due to external causes (2 sources) Injury of left ankle; Translations: [Unspecified injury of left ankle, initial encounter] 07-25-2024 Episodic Other nervous system disorders (20 sources) Abnormal circadian rhythm; Translations: [Circadian rhythm sleep disorder, unspecified type] Onset: 04-05-2024 04-05-2024 Chronic Other non-traumatic joint disorders (13 sources) Pain in right knee; Translations: [Pain in joint, lower leg] 04-06-2025 Episodic Other nutritional; endocrine; and metabolic disorders (8 sources) Obese class II; Translations: [Obesity, unspecified] Onset: 05-11-2022 Chronic Other nutritional; endocrine; and metabolic disorders (20 sources) Obesity; Translations: [Obesity, unspecified] Onset: 04-05-2024 04-05-2024 Chronic Other nutritional; endocrine; and metabolic disorders (8 sources) Body mass index 40+ - severely obese; Translations: [Body mass index (BMI) 40.0-44.9, adult] Onset: 01-19-2022 01-19-2022 Chronic Residual codes; unclassified (20 sources) Obstructive sleep apnea syndrome; Translations: [Obstructive sleep apnea (adult) (pediatric)] Onset: 04-05-2024 Chronic Residual codes; unclassified (7 sources) Sleep apnea; Translations: [Sleep apnea, unspecified] Onset: 05-11-2022 05-11-2022 Chronic Residual codes; unclassified (20 sources) Hypersomnia; Translations: [Hypersomnia, unspecified] Onset: 04-05-2024 04-05-2024 Chronic Residual codes; unclassified (4 sources) Other amnesia; Translations: [OTHER AMNESIA] Onset: 12-05-2022 Episodic Schizophrenia and other psychotic disorders (3 sources) Psychotic disorder; Translations: [Unspecified psychosis not due to a substance or known physiological condition] Onset: 07-10-2022 07-07-2022 Chronic Spondylosis; intervertebral disc disorders; other back problems (12 sources) Radicular pain; Translations: [Radiculopathy, site unspecified] 04-06-2025 Episodic Sprains and strains (2 sources) Strain of muscle and/or tendon of lower leg; Translations: [Strain of unspecified muscle and tendon at ankle and foot level, left foot, initial encounter] 07-25-2024 Episodic Unclassified (1 source) CONTACT W/AND (SUSP) EXPOS COVID-19; Translations: [CONTACT W/AND (SUSP) EXPOS COVID-19] Onset: 07-10-2022 Unclassified (1 source) PERSONAL HISTORY OF COVID-19; Translations: [PERSONAL HISTORY OF COVID-19] Onset: 03-09-2022 Past or Other Problems Problem Classification Problem Date Documented Da te Episodic/Chronic Blindness and vision defects (4 sources) Visual hallucinations; Translations: [VISUAL HALLUCINATIONS] Onset: 03-07-2022 Episodic Fluid and electrolyte disorders (2 sources) Hypokalemia; Translations: [Hypokalemia] Onset: 06-09-2022 Episodic Genitourinary symptoms and ill-defined conditions (5 sources) Dysuria; Translations: [Dysuria] Onset: 07-10-2022 Episodic Headache; including migraine (20 sources) Headache; Translations: [Headache] Onset: 04-05-2024 04-05-2024 Episodic Headache; including migraine (1 source) Headache; including migraine Onset: 11-01-2021 Resolved: 11-01-2021 Hemorrhoids (5 sources) Hemorrhoids; Translations: [Unspecified hemorrhoids] Onset: 12-21-2021 Resolved: 02-22-2022 Episodic Immunizations and screening for infectious disease (1 source) Contact with and (suspected) exposure to other viral communicable diseases Onset: 11-01-2021 Resolved: 11-01-2021 Episodic Mood disorders (8 sources) Mood disorders Onset: 05-15-2023 05-15-2023 Other aftercare (1 source) Other alf (current) drug therapy; Translations: [OTH LUNCHROOM MOTHER CURRENT DRUG THERAPY] Onset: 07-10-2022 Episodic Other aftercare (1 source) Encounter for follow-up examination after completed treatment for conditions other than malignant neoplasm; Translations: [Follow-up examination after colorectal surgery] Onset: 06-22-2022 Episodic Other gastrointestinal disorders (1 source) Diarrhea, unspecified Onset: 02-22-2022 Resolved: 02-22-2022 Episodic Other nervous system disorders (20 sources) Tremor; Translations: [Tremor, unspecified] Onset: 04-05-2024 04-05-2024 Episodic Otitis media and related conditions (1 source) Acute serous otitis media, recurrent, right ear Onset: 11-01-2021 Resolved: 11-01-2021 Episodic Residual codes; unclassified (3 sources) Auditory hallucinations; Translations: [AUDITORY HALLUCINATIONS] Onset: 07-06-2022 Episodic Residual codes; unclassified (4 sources) Altered mental status, unspecified; Translations: [ALTERED MENTAL STATUS UNSPECIFIED] Onset: 06-07-2022 Episodic Residual codes; unclassified (20 sources) Hallucinations; Translations: [Hallucinations, unspecified] Onset: 04-05-2024 04-05-2024 Episodic Residual codes; unclassified (20 sources) Memory impairment; Translations: [Other amnesia] Onset: 04-05-2024 04-05-2024 Episodic Unclassified (2 sources) Acute pain of right knee 04-06-2025 Urinary tract infections (3 sources) Acute cystitis; Translations: [Acute cystitis without hematuria] Onset: 03-09-2022 Episodic Results Test Name Value Interpretation Reference Range Facility No Panel Informationon 06-04 Gloria Logan NP 06/04/2025 4:23 PM L Inj/Asp: R knee on 06/04/2025 4:14 PM Indications: pain Details: 21 G needle, anterolateral approach Medications: 40 mg methylPREDNISolone acetate 40 MG/ML Outcome: tolerated well, no immediate complications Site cleaned with isopropyl alcohol Procedure, treatment alternatives, risks and benefits explained, specific risks discussed. Consent was given by the patient. [facility] XR Knee - right 1 or 2 Views on 04-06-2025 Imaging Result: 04/06/2025: AP and lateral of right knee showed excellent preservation of joint space heights there was no flattening of the articular surfaces tricompartmentally. There was no evidence of marginal osteophytic formation. Overall alignment appeared to be normal. There was no evidence of fracture or dislocation. Bony structures in view showed excellent ossification. Impression: No acute bony process, right knee Gloria Logan LEAD SLOT TECHNICIAN-KILN HAND [facility] Radiology Study observation (narrative) [facility] No Panel Informationon 07-25 Radha Rothman LPN 07/29/2024 9:53 PM Splint Application Date/Time: 07/25/2024 2:19 PM Performed by: Radha Rothman LPN Authorized by: Radha Vasquez NP Consent: Consent obtained: Verbal Consent given by: Patient Procedure details: Location: Foot Foot location: L foot Cast type: Short leg Supplies: Prefabricated splint Attestation: Splint applied and adjusted personally by [facility] XR ANKLE 3+ VIEWS LEFTon XR ANKLE 3+ VIEWS LEFT Exam: XR ANKLE 3+ VIEWS LEFT Clinical History: Left ankle pain, bruising for one day, fall landing on left ankle Reference Exam: No comparison FINDINGS: Circumferential soft tissue swelling primarily laterally. Congruent bony ankle mortise. No significant ankle joint effusion. Small retrocalcaneal exostosis. Small plantar calcaneal enthesophyte formation. Heel pad swelling. Visualized tarsal bones and metatarsals are unremarkable. IMPRESSION: 1. Soft tissue swelling. No acute fracture is identified radiographically. 2. Calcaneal degenerative changes. 3. If the patient's clinical symptomatology warrants, further diagnostic imaging investigation is available. Dictated on: 07/25/2024 11:55 AM This report has been electronically signed and approved by the interpreting Radiologist. Normal Not Available XR Ankle - left 3 Viewson Exam: XR ANKLE 3+ VIEWS LEFT Clinical History: Left ankle pain, bruising for one day, fall landing on left ankle Reference Exam: No comparison FINDINGS: Circumferential soft tissue swelling primarily laterally. Congruent bony ankle mortise. No significant ankle joint effusion. Small retrocalcaneal exostosis. Small plantar calcaneal enthesophyte formation. Heel pad swelling. Visualized tarsal bones and metatarsals are unremarkable. IMPRESSION: 1. Soft tissue swelling. No acute fracture is identified radiographically. 2. Calcaneal degenerative changes. 3. If the patient's clinical symptomatology warrants, further diagnostic imaging investigation is available. Dictated on: 07/25/2024 11:55 AM This report has been electronically signed and approved by the interpreting Radiologist. IMAGING Randy Mckenna MD - 07/25/2024 Exam: XR ANKLE 3+ VIEWS LEFT Clinical History: Left ankle pain, bruising for one day, fall landing on left ankle Reference Exam: No comparison FINDINGS: Circumferential soft tissue swelling primarily laterally. Congruent bony ankle mortise. No significant ankle joint effusion. Small retrocalcaneal exostosis. Small plantar calcaneal enthesophyte formation. Heel pad swelling. Visualized tarsal bones and metatarsals are unremarkable. IMPRESSION: 1. Soft tissue swelling. No acute fracture is identified radiographically. 2. Calcaneal degenerative changes. 3. If the patient's clinical symptomatology warrants, further diagnostic imaging investigation is available. Dictated on: 07/25/2024 11:55 AM This report has been electronically signed and approved by the interpreting Radiologist. [facility] Radiology Study observation (narrative) [facility] XR Ankle - left 3 ViewsOrder ed By: Randy Mckenna on 07-25-2024 [facility] Work Phone: CNOVon 05-17-2023 CNOV Office Visit (CORSAV ) JODI TOLEDO ([id number]) 1985 F Date Time Provider Department 05/17/23 11:00 AM MAYILN DOWNEY During your visit today, we recorded the following information about you: Pulse Blood pressure Weight Height 93/minute 129/84 111.8 kg 1.676 m Maylin Downey MD 05/17/2023 11:32 AM Signed COLORECTAL SURGERY May 17, 2023 Jodi Toledo Chief Complaint: follow up/ anal fissure History of Present Illness: Jodi Toledo is a 37 year old female presents to the office for a follow up evaluation of an anal fissure. 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 Last seen in the office on 10/26/22. Prior A/P: anal fissure s/p sphincterotomy 06/2022 w/ granulation tissue at posterior midline fissure site. Silver nitrate applied to granulation tissue Continue bowel regimen, Sitz baths PRN RTC in 6 months if ongoing symptoms, otherwise RTC PRN Bleeding? No Anorectal pain? No Seepage? No Stool consistency: Soft, formed Time in bathroom for BM: Less than 10 minutes Pushing and straining? No Current meds for constipation: none PAST MEDICAL HISTORY Diagnosis Date Anxiety HLD (hyperlipidemia) Intellectual disability patient's mother reports she is high functioning Migraines Mood disorder (HCC) Sleep apnea PAST SURGICAL HISTORY Procedure Laterality Date COLONOSCOPY SCREENING PAST SURGICAL HISTORY OF 05/2022 botox Current Outpatient Medications Medication Sig Dispense Refill FLUoxetine (PROZAC) 20 mg capsule Take 40 mg by mouth daily at bedtime. medroxyPROGESTERone (DEPO-PROVERA) 150 mg/mL injection Inject 150 mg intramuscularly every 3 months. docusate sodium (COLACE) 100 mg capsule Take 100 mg by mouth twice daily. amitriptyline (ELAVIL) 25 mg tablet Take 25 mg by mouth. acetaminophen 325 mg-caffeine 40 mg-butalbital 50 mg (FIORICET) per tablet TAKE 1 TABLET BY MOUTH AT THE ONSET OF MIGRAINE, MAY REPEAT EVERY 4 TO 6 HOURS. NO MORE THAN 2 TIMES A DAY AND 2 TIMES A WEEK calcium carbonate (CALTRATE) 600 mg calcium (1,500 mg) tab Take 600 mg by mouth. QUEtiapine (SEROQUEL) 25 mg tablet Take 25 mg by mouth. Takes 1.5 tablets by mouth daily rosuvastatin (CRESTOR) 5 mg tablet Take 5 mg by mouth once daily. topiramate (TOPAMAX) 100 mg tablet lidocaine (XYLOCAINE) 5 % ointment APPLY NEEDED FOUR TIMES A DAY No current facility-administered medications for this visit. ALLERGIES Allergen Reactions Penicillins Unknown FAMILY HISTORY Problem Relation Age of Onset No Known Problems Mother Diabetes Father Anesthesia Problems No Family History Social History Tobacco Use Smoking status: Never Smokeless tobacco: Never Vaping Use Vaping Use: Never used Substance Use Topics Alcohol use: Never Drug use: Never Physical Exam: BP 129/84 Pulse 93 Ht 167.6 cm (5' 6 ) Wt 111.8 kg (246 lb 8 oz) BMI 39.79 kg/m? General Appearance: Well appearing, alert, in no acute distress, well-hydrated, well nourished. Abdomen: soft ND NT obese Anorectal: External exam reveals healed right lateral sphincterotomy site, no fissure. + soilage and mild perianal dermatitis. Pier Hand present: Yes Bianca Assessment Assessment and Plan: Jodi Toledo is a 37 year old female w/ chronic anal fissure s/p LIS. Doing well. Fiber for soilage and dermatitis RTC PRN Medical Decision Making: Data Reviewed: Tests AND Documents Reviewed/ordered: Review of prior notes from [facility] Review of prior operative reports I have discussed Jodi Toledo's treatment plan and/or results with the patient. I spent a total of 20 minutes on the date of the service which included preparing to see the patient, [id number] patient care, completing clinical documentation, obtaining and/or reviewing separately obtained history, performing a medically appropriate examination, counseling and educating the patient/family/caregiv er, and care coordination (not separately reported). Maylin Downey MD Colorectal Surgery Allergies As of Date: 05/17/2023 Noted Allergy Reaction PENICILLINS 04/20/2022 16 - Unknown Date Reviewed: 05/17/2023 Reviewed by: Maylin Downey MD - Fully Assessed Reason for Visit: Established Patient [175] Cmt: 6 month follow up for anal fissure Primary Visit Diagnosis:Anal fissure [K60.2] Other Visit Diagnosis:Follow-up examination after colorectal surgery [Z09] Prescriptions as of 05/17/2023 - FLUoxetine (PROZAC) 20 mg capsule Take 40 mg by mouth daily at bedtime. - medroxyPROGESTERone (DEPO-PROVERA) 150 mg/mL injection Inject 150 mg intramuscularly every 3 months. - docusate sodium (COLACE) 100 mg capsule Take 100 mg by mouth twice daily. - amitriptyline (ELAVIL) 25 mg tablet Take 25 mg by mouth. - acetaminophen 325 mg-caffeine 40 mg- (more content not included)... Normal [facility] MRI BRAIN CONon 3 MRI BRAIN CON EXAMINATION: MRI BRA IN [facility], 12/05/2022 10:37 AM EDT HISTORY: Amnesia ; episodes of confusion and memory loss COMPARISON: None. TECHNIQUE: MRI of the brain was performed without IV contrast. FINDINGS: CEREBRUM: No edema, hemorrhage, mass, acute infarction, or inappropriate atrophy. CEREBELLUM: No edema, hemorrhage, mass, acute infarction, or inappropriate atrophy. BRAINSTEM: No edema, hemorrhage, mass, acute infarction, or inappropriate atrophy. CSF SPACES: Ventricles, cisterns, and sulci are appropriate for age. No hydrocephalus, subarachnoid hemorrhage, or mass. SKULL: No mass or other significant visible lesion. SINUSES: Limited views demonstrate no significant mucosal thickening or fluid. ORBITS: Limited views are unremarkable. OTHER: Negative. IMPRESSION: 1. No abnormal or suspicious findings to account for patient's symptoms. 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 Continue supportive management RTC 3 months for wound check Warning signs of infection reviewed. ----- Symptoms: Still with mild proctalgia and hematochezia improved from prior to procedure. No FI or seepage. PAST MEDICAL HISTORY Diagnosis Date Anxiety HLD (hyperlipidemia) Intellectual disability patient's mother reports she is high functioning Migraines Mood disorder (HCC) Sleep apnea PAST SURGICAL HISTORY Procedure Laterality Date COLONOSCOPY SCREENING PAST SURGICAL HISTORY OF 05/2022 botox Current Outpatient Medications Medication Sig Dispense Refill FLUoxetine (PROZAC) 20 mg capsule Take 40 mg by mouth daily at bedtime. medroxyPROGESTERone (DEPO-PROVERA) 150 mg/mL injection Inject 150 mg intramuscularly every 3 months. docusate sodium (COLACE) 100 mg capsule Take 100 mg by mouth twice daily. amitriptyline (ELAVIL) 25 mg tablet Take 25 mg by mouth. acetaminophen 325 mg-caffeine 40 mg-butalbital 50 mg (FIORICET) per tablet TAKE 1 TABLET BY MOUTH AT THE ONSET OF MIGRAINE, MAY REPEAT EVERY 4 TO 6 HOURS. NO MORE THAN 2 TIMES A DAY AND 2 TIMES A WEEK calcium carbonate (CALTRATE) 600 mg calcium (1,500 mg) tab Take 600 mg by mouth. lidocaine (XYLOCAINE) 5 % ointment APPLY NEEDED FOUR TIMES A DAY QUEtiapine (SEROQUEL) 25 mg tablet Take 25 mg by mouth. Takes 1.5 tablets by mouth daily rosuvastatin (CRESTOR) 5 mg tablet Take 5 mg by mouth once daily. topiramate (TOPAMAX) 100 mg tablet No current facility-administered medications for this visit. ALLERGIES Allergen Reactions Penicillins Unknown FAMILY HISTORY Problem Relation Age of Onset No Known Problems Mother Diabetes Father Anesthesia Problems No Family History Social History Tobacco Use Smoking status: Never Smokeless tobacco: Never Vaping Use Vaping Use: Never used Substance Use Topics Alcohol use: Never Drug use: Never Physical Exam: There were no vitals taken for this visit. General Appearance: Well appearing, alert, in no acute distress, well-hydrated, well nourished. Abdomen: soft ND NT obese Anorectal: External exam reveals posterior midline granulation tissue at anal verge. RL incision well healed. Pier Hand present: Yes Dawson Assessment Assessment and Plan: Jodi Toledo is a 36 year old female with anal fissure s/p sphincterotomy 06/2022 w/ granulation tissue at posterior midline fissure site. Silver nitrate applied to granulation tissue Continue bowel regimen, Sitz baths PRN RTC in 6 months if ongoing symptoms, otherwise RTC PRN Medical Decision Making: Data Reviewed: Tests AND Documents Reviewed/ordered: Review of prior notes from myself, Dr. Johnson Review of prior operative reports I have discussed Jodi Toledo's treatment plan and/or results with the patient. I spent a total of 30 minutes on the date of the service which included preparing to see the patient, [id number] patient care, completing clinical documentation, obtaining and/or reviewing separately obtained history, performing a medically appropriate examination, and counseling and educating the patient/family/caregiv er. Maylin Downey MD Colorectal Surgery Referring Provider: NOE RICO [[id number]] Allergies As of Date: 10/26/2022 Noted Allergy Reaction PENICILLINS 04/20/2022 16 - Unknown Date Reviewed: 10/26/2022 Reviewed by: Maylin Downey MD - Fully Assessed Reason for Visit: Established Patient Follow-Up [[id number]] Cmt: 3 month f/u anal fissure Primary Visit Diagnosis:Anal fissure [K60.2] Prescriptions as of 10/26/2022 - FLUoxetine (PROZAC) 20 mg capsule Take 40 mg by mouth daily at bedtime. - medroxyPROGESTERone (DEPO-PROVERA) 150 mg/mL injection Inject 150 mg intramuscularly every 3 months. - docusate sodium (COLACE) 100 mg capsule Take 100 mg by mouth twice daily. - amitriptyline (ELAVIL) 25 mg tablet Take 25 mg by mouth. - acetaminophen 325 mg-caffeine 40 mg-butalbital 50 mg (FIORICET) per tablet TAKE 1 TABLET BY MOUTH AT THE ONSET OF MIGRAINE, MAY REPEAT EVERY 4 TO 6 HOURS. NO MORE THAN 2 TIMES A DAY AND 2 TIMES A WEEK - calcium carbonate (CA (more content not included)... Normal [facility] LIPID PROFILEon 09-25-2022 CHOL-HDL RATIO NORM SEE BELOW Normal [facility] Comment on above: Result Comment: 3.3 - 4.4 LOW RISK 4.4 - 7.1 AVERAGE RISK 7.1 - 11.0 MODERATE RISK >11.0 HIGH RISK Performed By: #### PATRICIA FERRARI #### [facility] [address] [place], [place] [address] Dr. Cornell Viera Cholesterol [Mass/Vol] 143 mg/dL Normal <=200 [facility] Comment on above: Performed By: #### PATRICIA FERRARI #### [facility] [address] [place], [place] [address] Dr. Cornell Viera Cholesterol in HDL [Mass/Vol] 44 mg/dL Normal 40-60 [facility] Comment on above: Performed By: #### Mahin WALSH UMICRO #### [facility] [address] [place] [address] [address] Cornell Viera Cholesterol in LDL [Mass/Vol] 30.6 mg/dL Normal [facility] Comment on above: Performed By: #### Mahin WALSH UMICRO #### [facility] [address] [place] [address] [address] Cornell Viera Cholesterol.total/Cho lesterol in HDL [Mass ratio] 3.3 {ratio} Normal [facility] Comment on above: Performed By: #### Mahin WALSH UMICRO #### [facility] [address] [place] [address] Dr. Cornell Viera HDL NORMAL > or = 60 mg/dl - LO W CARDIOVASCULAR RISK <40 mg/dl - HIGH CARDIOVASCULAR RISK Normal [facility] Comment on above: Performed By: #### Mahin WALSH UMICRO #### [facility] [address] [place] [address] [address] Cornell Viera LDL CALC NORMAL SEE BELOW Normal [facility] Comment on above: Result Comment: <100 mg/dl OPTIMAL 100 - 129 mg/dl NEAR OR ABOVE OPTIMAL 130 - 159 mg/dl BORDERLINE HIGH 160 - 189 mg/dl HIGH >190 mg/dl VERY HIGH Performed By: #### Mahin WALSH UMICRO #### [facility] [address] [place] [address] [address] Cornell Viera Triglyceride [Mass/Vol] 342 mg/dL Critically high <=150 [facility] Comment on above: Performed By: #### Mahin WALSH UMICRO #### [facility] [address] [place] [address] Dr. Cornell Viera VLDL CALC 68.4 mg/dL Normal [facility] Comment on above: Performed By: #### Mahin WALSH UMICRO #### [facility] [address] [place] [address] Dr. Cornell CHENon 08-01-2022 CNOV Office Visit ([facility] ) JODI TOLEDO ([id number]) 1985 F Date Time Provider Department 08/01/22 10:00 AM MAYLIN DOWNEY [facility] During your visit today, we recorded the following information about you: Temperature Pulse Blood pressure Weight 98.7 degrees 88/minute 140/96 102.1 kg Height 1.676 m Angela Harrison MA 08/01/2022 9:53 AM Signed What is the reason for your visit today? Established patient presents post op/ anal fissure. Who is your referring physician? Are you having poor oral intake? NO Have you had unintentional weight loss of 15 lbs/7 Kg in the last 3-6 months? 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 Symptoms: still with pain and hematochezia FI: denies Medications: stool softener, nifedipine topical PAST MEDICAL HISTORY Diagnosis Date Anxiety HLD (hyperlipidemia) Intellectual disability patient's mother reports she is high functioning Migraines Mood disorder (HCC) Sleep apnea PAST SURGICAL HISTORY Procedure Laterality Date COLONOSCOPY SCREENING PAST SURGICAL HISTORY OF 05/2022 botox Current Outpatient Medications Medication Sig Dispense Refill FLUoxetine (PROZAC) 20 mg capsule Take 40 mg by mouth daily at bedtime. medroxyPROGESTERone (DEPO-PROVERA) 150 mg/mL injection Inject 150 mg intramuscularly every 3 months. docusate sodium (COLACE) 100 mg capsule Take 100 mg by mouth twice daily. amitriptyline (ELAVIL) 25 mg tablet Take 25 mg by mouth. acetaminophen 325 mg-caffeine 40 mg-butalbital 50 mg (FIORICET) per tablet TAKE 1 TABLET BY MOUTH AT THE ONSET OF MIGRAINE, MAY REPEAT EVERY 4 TO 6 HOURS. NO MORE THAN 2 TIMES A DAY AND 2 TIMES A WEEK calcium carbonate (CALTRATE) 600 mg calcium (1,500 mg) tab Take 600 mg by mouth. lidocaine (XYLOCAINE) 5 % ointment APPLY NEEDED FOUR TIMES A DAY QUEtiapine (SEROQUEL) 25 mg tablet Take 25 mg by mouth. Takes 1.5 tablets by mouth daily rosuvastatin (CRESTOR) 5 mg tablet Take 5 mg by mouth once daily. topiramate (TOPAMAX) 100 mg tablet No current facility-administered medications for this visit. ALLERGIES Allergen Reactions Penicillins Unknown FAMILY HISTORY Problem Relation Age of Onset No Known Problems Mother Diabetes Father Anesthesia Problems No Family History Social History Tobacco Use Smoking status: Never Smokeless tobacco: Never Vaping Use Vaping Use: Never used Substance Use Topics Alcohol use: Never Drug use: Never Physical Exam: BP 140/96 (BP Site: Right Arm, BP Position: Sitting) Pulse 88 Temp 37.1 ?C (98.7 ?F) Ht 167.6 cm (5' 6 ) Wt 102.1 kg (225 lb) SpO2 98% BMI 36.32 kg/m? General Appearance: Well appearing, alert, in no acute distress, well-hydrated, well nourished. Abdomen: soft ND NT Anorectal: External exam reveals open wound RL anal verge 1 cm in length with healthy granulation tissue at base, healing posterior midline fissure. 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 Continue supportive management RTC 3 months for wound check Warning signs of infection reviewed. Medical Decision Making: Data Reviewed: Tests AND Documents Reviewed/ordered: Review of prior notes from myself, Bebeto Johnson Review of prior operative reports I have discussed Jodi Toledo's treatment plan and/or results with the patient. I spent a total of 30 minutes on the date of the service which included preparing to see the patient, [id number] patient care, completing clinical documentation, obtaining and/or reviewing separately obtained history, performing a medically appropriate examination, and counseling and educating the patient/family/[facility] er. Maylin Downey MD Colorectal Surgery Allergies As of Date: 08/01/2022 Noted Allergy Reaction PENICILLINS 04/20/2022 16 - Unknown Date Reviewed: 08/01/2022 Reviewed by: Maylin Downey MD - Fully Assessed Reason for Visit: Post Op [174] Primary Visit Diagnosis:Follow-up examination after colorectal surgery [Z09] Other Visit Diagnosis:Anal fissure [K60.2] Prescriptions as of 08/01/2022 - FLUoxetine (PROZAC) 20 mg capsule Take 40 mg by mouth daily at bedtime. - medroxyPROGESTERone (DEPO-PROVERA) 150 mg/mL injection Inject 150 mg intramuscularly every 3 months. - docusate sodium (COLACE) 100 mg capsule Take 100 mg by mouth twice daily. - amitriptyline (ELAVIL) 25 mg tablet Ta (more content not included)... Normal [facility] Cholesterol [Mass/volume] in Serum or PlasmaOrdered By: Raciel Espinoza on 07-07-2022 Cholesterol [Mass/Vol] 140 mg/dL 140-200 [facility] Comment on above: Chol less than 200 m g/dl low riskChol 201-239 mg/dl borderline riskChol 240 mg/dl and greater high risk Cholesterol in LDL Calc [Mas s/Vol]Ordered By: Raciel Espinoza on 07-07-2022 Cholesterol in LDL [Mass/Vol] 71 mg/dL 0-100 [facility] Comment on above: LDL ATP III CLASSIFI CATIONLDL less than 100 mg/dL OptimalLDL 100-129 mg/dL Near or above optimalLDL 130-159 mg/dL Borderline highLDL 160-189 mg/dL HighLDL greater than 189 mg/dL Very high Cholesterol in VLDL Calc [Ma ss/Vol]Ordered By: Raciel Espinoza on 07-07-2022 Cholesterol in VLDL [Mass/Vol] 35 mg/dL [facility] No Panel InformationOrdered By: Raciel Espinoza on 07-07-2022 25-Hydroxy Vitamin D Total 18.9 ng/mL 30-100 [facility] Comment on above: VITAMIN D STATUS 25( [place])VITAMIN D RANGE (ng/mL) Deficient <20 Insufficient 20 to <30Sufficient 30 to 100Reference: Irasema PLASCENCIA,Didier ARCINIEGA, Alexander WALKER, et al. Evaluation,treatment, and prevention of vitamin D deficiency; an Endocrine Society clinical practice guideline. JCEM. 2010; 96(7):1911-30. Serum or plasma high density lipoprotein (HDL) cholesterol measurementOrdered By: Raciel Espinoza on 07-07-2022 Cholesterol in HDL [Mass/Vol] 34 mg/dL 35-85 [facility] Comment on above: HDL CHOL ATP-III CLA SSIFICATION Cardiovascular RiskHDL > or equal to 60 mg/dL LOWHDL < 40 mg/dL HIGH Serum or plasma total choles terol/high density lipoprotein (HDL) cholesterol mass ratOrdered By: Raciel Espinoza on 07-07-2022 Cholesterol.total/Cho lesterol in HDL [Mass ratio] 4.1 {ratio} <5.0 [facility] TSH DL <= 0.005 mIU/L QnOrde red By: Raciel Espinoza on 07-07-2022 TSH Qn 0.99 m[IU]/L 0.45-5.33 [facility] Triglyceride [Mass/volume] i n Serum or PlasmaOrdered By: Raciel Espinoza on 07-07-2022 Triglyceride [Mass/Vol] 177 mg/dL 35-149 [facility] Comment on above: TRIG ATP III CLASSIF ICATIONTRIG less than 150 mg/dL NormalTRIG 150-199 mg/dL Borderline highTRIG 200-500 mg/dL High TRIG greater than 500 mg/dL Very highStandard traceable to the Center for Disease Conrtrol and Prevention (CDC) test method. ACETAMINOPHENon 07-06-2022 Acetaminophen [Mass/Vol] ug/mL Critically low 10.0-30.0 [facility] Comment on above: Performed By: #### C MP, LIPID #### [facility] [address] [place] [address] [address] Cornell Viera CBC AUTO DIFFon 07-06-2022 BASO # 0.0 103/ul Normal 0.0-0.1 [facility] Comment on above: Performed By: #### E RUR, UMICRO #### [facility] [address] [place] [address] [address] Cornell Viera Basophils/100 WBC (Bld) 0.3 % Normal 0.2-2.0 [facility] Comment on above: Performed By: #### PATRICIA FERRARI #### [facility] [address] [place] [address] Dr. Cornell Viera EO # 0.2 103/ul Normal 0.0-0.7 [facility] Comment on above: Performed By: #### PATRICIA FERRARI #### [facility] [address] [place] [address] Dr. Cornell Viera Eosinophils/100 WBC (Bld) 1.4 % Normal 0.9-7.0 [facility] Comment on above: Performed By: #### PATRICIA FERRARI #### [facility] [address] [place] [address] Dr. Cornell Viera Erythrocyte distribution width (RBC) [Ratio] 14.6 % Normal 11.0-15.0 [facility] Comment on above: Performed By: #### PATRICIA FERRARI #### [facility] [address] [place] [address] Dr. Cornell Viera Hematocrit (Bld) [Volume fraction] 39.8 % Normal 36.0-48.0 [facility] Comment on above: Performed By: #### PATRICIA FERRARI #### [facility] [address] [place] [address] Dr. Cornell Viera Hemoglobin (Bld) [Mass/Vol] 12.8 g/dL Normal 12.0-16.0 [facility] Comment on above: Performed By: #### PATRICIA FERRARI #### [facility] [address] [place] [address] Dr. Cornell Viera IG # 0.02 10e3/ul Normal 0.00-0.03 [facility] Comment on above: Performed By: #### PATRICIA FERRARI #### [facility] [address] [place] [address] Dr. Cornell Viera IG % 0.2 % Normal 0.0-0.5 [facility] Comment on above: Performed By: #### Mahin WALSH UMICRO #### [facility] [address] [place] [address] Dr. Cornell Viera LYMPH # 2.7 103/ul Normal 1.2-3.8 [facility] Comment on above: Performed By: #### E RUYajaira, UMICRO #### [facility] [address] [place] [address] Dr. Cornell Viera Lymphocytes/100 WBC (Bld) 23.0 % Normal 20.5-60.0 [facility] Comment on above: Performed By: #### E RUR, UMICRO #### [facility] [address] [place] [address] Dr. Cornell Viera MANUAL DIFF REQ NO Normal [facility] Comment on above: Performed By: #### E NICO UMICRO #### [facility] [address] [place] [address] Dr. Cornell Viera MCH (RBC) [Entitic mass] 27.5 pg Normal 26.7-34.0 [facility] Comment on above: Performed By: #### Mahin WALSH UMICRO #### [facility] [address] [place] [address] Dr. Cornell Viera MCHC (RBC) [Mass/Vol] 32.2 g/dL Normal 29.9-35.2 [facility] Comment on above: Performed By: #### Mahin WALSH UMICRO #### [facility] [address] [place] [address] Dr. Cornell Viera MCV (RBC) [Entitic vol] 85.6 fL Normal 81.0-99.0 [facility] Comment on above: Performed By: #### Mahin WALSH, UMICRO #### [facility] [address] [place] [address] Dr. Cornell Viera MONO # 1.0 103/ul Critically high 0.3-0.8 [facility] Comment on above: Performed By: #### E RUYajaira, UMICRO #### [facility] [address] [place] [address] Dr. Cornell Viera Monocytes/100 WBC (Bld) 8.8 % Normal 1.7-12.0 [facility] Comment on above: Performed By: #### CHRISTY FERRARIRO #### [facility] [address] [place] [address] Dr. Cornell Viera NEUT # 7.6 103/ul Critically high 1.4-6.5 [facility] Comment on above: Performed By: #### CHRISTY FERRARIRO #### [facility] [address] [place] [address] Dr. Cornell Viera Neutrophils/100 WBC (Bld) 66.3 % Normal 43.0-75.0 [facility] Comment on above: Performed By: #### CHRISTY FERRARIRO #### [facility] [address] [place] [address] Dr. Cornell Viera Platelet mean volume (Bld) [Entitic vol] 9.3 fL Critically low 9.5-13.5 [facility] Comment on above: Performed By: #### CHRISTY FERRARIRO #### [facility] [address] [place] [address] Dr. Cornell Viera PLT 364 103/ul Normal 150-450 [facility] Comment on above: Performed By: #### CHRISTY FERRARIRO #### [facility] [address] [place] [address] Dr. Cornell Viera RBC 4.65 106/ul Normal 4.20-5.40 [facility] Comment on above: Performed By: #### CHRISTY FERRARIRO #### [facility] [address] [place] [address] Dr. Cornell Viera WBC 11.5 103/ul Critically high 4.0-11.0 [facility] Comment on above: Performed By: #### CHRISTY FERRARIRO #### [facility] [address] [place] [address] Dr. Cornell Viera CULTURE URINEon 07-06-2022 CULTURE URINE Culture Observations : MODERATE GROWTH OF MIXED GENITAL MARY JANE. NO POTENTIAL PATHOGENS SEEN. Normal [facility] Comment on above: Performed By: #### C MP, LIPID #### [facility] [address] [address] [address] Cornell Viera [facility]on SARS-CoV-2 (COVID-19) RNA FLORI+probe Ql (Unsp spec) Not detected Normal NOT DETECTED [facility] Comment on above: Result Comment: When diagnostic testing is negative, the possibility of a false negative should be considered in the context of a patient's recent exposures and the presence of clinical signs and symptoms consistent with SARS-CoV-2. This test is not yet approved or cleared by the [place] FDA. When there are no FDA-approved or cleared tests available, and other criteria are met, FDA can make tests available under an emergency access mechanism called an Emergency Use Authorization (EUA). The EUA for this test is supported by the [place] of Health and Human Service's declaration that circumstances exist to justify the emergency use of in vitro diagnostics for the detection and/or diagnosis of the virus that causes COVID-19. This EUA will remain in effect for the duration of the COVID-19 declaration justifying emergency of IVDs, unless it is terminated or revoked by the FDA (after which the test may no longer be used). Performed By: #### C VDTBH #### [facility] [address] [place] [address] Dr. Cornell Viera DRUG SCREEN RAPID (URINE)on 07-06-2022 AMP Negative Normal NEGATIVE [facility] Comment on above: Performed By: #### C MP, LIPID #### [facility] [address] [place] [address] Dr. Cornell Viera BAR Positive Abnormal NEGATIVE [facility] Comment on above: Performed By: #### C MP, LIPID #### [facility] [address] [place] [address] Dr. Cornell Viera BUP Negative Normal NEGATIVE [facility] Comment on above: Performed By: #### C MP, LIPID #### [facility] [address] [place] [address] Dr. Cornell Viera BZO Positive Abnormal NEGATIVE [facility] Comment on above: Performed By: #### C MP, LIPID #### [facility] [address] [place] [address] Dr. Cornell Viera ANAHI Negative Normal NEGATIVE [facility] Comment on above: Performed By: #### C MP, LIPID #### [facility] [address] [place] [address] Dr. Cornell Viera CUT-OFFS SEE BELOW Normal [facility] Comment on above: Result Comment: AMP (Amphetamine): 500ng/mL, BAR (Barbituates): 200 ng/mL, BZO (Benzodiazepines): 150 ng/mL, BUP (Buprenorphine): 10 ng/mL, ANAHI (Cocaine): 150 ng/mL, mAMP (Methamphetamine): 500 ng/mL, MTD (Methadone): 200 ng/mL, OPI (Opiates): 100 ng/mL, OXY (Oxycodone): 100 ng/mL, PCP (Phencyclidine): 25 ng/mL, PPX (Propoxyphene): 300 ng/mL, THC (Cannabinoids): 50 ng/mL, TCA (Trycyclic Antidepressants): 300 ng/mL Performed By: #### C MP, LIPID #### [facility] [address] [place] [address] Dr. Cornell Viera DRUG CUT HEADER DRUG CLASS TEST SYST EM CUT-OFF CONCENTRATIONS ARE FOLLOWS: Normal [facility] Comment on above: Performed By: #### C MP, LIPID #### [facility] [address] [place] [address] Dr. Cornell Viera mAMP Negative Normal NEGATIVE [facility] Comment on above: Performed By: #### C MP, LIPID #### [facility] [address] [place] [address] Dr. Cornell Viera MTD Negative Normal NEGATIVE [facility] Comment on above: Performed By: #### C MP, LIPID #### [facility] [address] [place] [address] Dr. Cornell Viera OPI Negative Normal NEGATIVE [facility] Comment on above: Performed By: #### C MP, LIPID #### [facility] [address] [place] [address] Dr. Cornell Viera OXY Negative Normal NEGATIVE [facility] Comment on above: Performed By: #### C MP, LIPID #### [facility] [address] [place] [address] Dr. Cornell Viera PCP Negative Normal NEGATIVE [facility] Comment on above: Performed By: #### C MP, LIPID #### [facility] [address] [place] [address] Dr. Cornell Viera PPX Negative Normal NEGATIVE [facility] Comment on above: Performed By: #### C MP, LIPID #### [facility] [address] [address] [address] Cornell Viera TCA Positive Abnormal NEGATIVE [facility] Comment on above: Performed By: #### C MP, LIPID #### [facility] [address] [place] [address] Dr. Cornell Viera THC Negative Normal NEGATIVE [facility] Comment on above: Performed By: #### C MP, LIPID #### [facility] [address] [place] [address] Dr. Cornell Viera ER URINE PROFILEon 2 Bilirubin Ql (U) SMALL Abnormal NEGATIVE [facility] Comment on above: Performed By: #### C MP, LIPID #### [facility] [address] [place] [address] Dr. Cornell Viera Clarity (U) CLEAR Normal CLEAR [facility] Comment on above: Performed By: #### C MP, LIPID #### [facility] [address] [place] [address] Dr. Cornell Viera Color (U) YELLOW Normal YELLOW [facility] Comment on above: Performed By: #### C MP, LIPID #### [facility] [address] [place] [address] Dr. Cornell Viera ERUAHEladio A micrscopic examination will be performed if indicated. Normal [facility] Comment on above: Performed By: #### C MP, LIPID #### [facility] [address] [place] [address] Dr. Cornell Viera Glucose Ql (U) Negative Normal NEGATIVE [facility] Comment on above: Performed By: #### C MP, LIPID #### [facility] [address] [place] [address] Dr. Cornell Viera Hemoglobin Ql (U) SMALL Abnormal NEGATIVE [facility] Comment on above: Performed By: #### C MP, LIPID #### [facility] [address] [place] [address] Dr. Cornell Viera Ketones Ql (U) 15 mg/dl Abnormal NEGATIVE [facility] Comment on above: Performed By: #### C MP, LIPID #### [facility] [address] [place] [address] Dr. Cornell Viera LEUKOCYTES TRACE Abnormal NEGATIVE [facility] Comment on above: Performed By: #### C MP, LIPID #### [facility] [address] [place] [address] Dr. Cornell Viera Nitrite Ql (U) Negative Normal NEGATIVE [facility] Comment on above: Performed By: #### C MP, LIPID #### [facility] [address] [place] [address] Dr. Cornell Viera pH (U) 6.0 [pH] Normal 5-9 [facility] Comment on above: Performed By: #### C MP, LIPID #### [facility] [address] [place] [address] Dr. Cornell Viera SPEC GRAVITY 1.025 Normal 1.005-<=1.0 25 [facility] Comment on above: Performed By: #### C MP, LIPID #### [facility] [address] [place] [address] Dr. Cornell Viera UA PROTEIN Negative Normal NEGATIVE/ TRACE [facility] Comment on above: Performed By: #### C MP, LIPID #### [facility] [address] [place] [address] Dr. Cornell Viera UR MICRO IND INDICATED Normal [facility] Comment on above: Performed By: #### C MP, LIPID #### [facility] [address] [place] [address] Dr. Cornell Viera Urobilinogen Qn (U) 0.2 {Presley'U}/dL Normal 0.2 - 1. 0 [facility] Comment on above: Performed By: #### C MP, LIPID #### [facility] [address] [address] [address] Cornell Viera ETHANOL (BLD ALC)on 07-06-20 22 ALC NOTE NOTE: 80 mg/dl is th e legal limit for a blood alcohol level Normal [facility] Comment on above: Performed By: #### E TH, SALYC, ACET, CMP, TSH #### [facility] [address] [address] [address] Cornell Viera Ethanol [Mass/Vol] mg/dL Normal [facility] Comment on above: Performed By: #### E TH, SALYC, ACET, CMP, TSH #### [facility] [address] [address] [address] Cornell Viera URon 07-06-2022 , QUAL Negative Normal NEGATIVE [facility] Comment on above: Performed By: #### C MP, LIPID #### [facility] [address] [place] [address] Dr. Cornell Viera PROF 14(COMP METB)on 022 Albumin [Mass/Vol] 3.8 g/dL Normal 3.4-5.0 [facility] Comment on above: Performed By: #### E TH, SALYC, ACET, CMP, TSH #### [facility] [address] [address] [address] Cornell Viera Albumin/Globulin [Mass ratio] 0.9 {ratio} Normal [facility] Comment on above: Performed By: #### E TH, SALYC, ACET, CMP, TSH #### [facility] [address] [address] [address] Cornell Viera ALP [Catalytic activity/Vol] 87 U/L Normal 46-116 [facility] Comment on above: Performed By: #### E TH, SALYC, ACET, CMP, TSH #### [facility] [address] [address] [address] Cornell Viera ALT [Catalytic activity/Vol] 37 U/L Normal 14-59 [facility] Comment on above: Performed By: #### E TH, SALYC, ACET, CMP, TSH #### [facility] [address] [address] [address] Cornell Viera Anion gap [Moles/Vol] 11.4 mmol/L Normal Th [facility] Comment on above: Performed By: #### E TH, SALYC, ACET, CMP, TSH #### [facility] [address] [place] [address] Dr. Cornell Viera AST [Catalytic activity/Vol] 12 U/L Critically low 15-37 [facility] Comment on above: Performed By: #### E TH, SALYC, ACET, CMP, TSH #### [facility] [address] [place] [address] Dr. Cornell Viera Bilirubin [Mass/Vol] 0.2 mg/dL Normal 0.2-1.0 [facility] Comment on above: Performed By: #### E TH, SALYC, ACET, CMP, TSH #### [facility] [address] [place] [address] Dr. Cornell Viera Calcium [Mass/Vol] 9.1 mg/dL Normal 8.5-10.1 [facility] Comment on above: Performed By: #### E TH, SALYC, ACET, CMP, TSH #### [facility] [address] [address] [address] Cornell Viera Chloride [Moles/Vol] 107 mmol/L Normal 98-107 [facility] Comment on above: Performed By: #### E TH, SALYC, ACET, CMP, TSH #### [facility] [address] [place] [address] Dr. Cornell Viera CO2 [Moles/Vol] 22.8 mmol/L Normal 21.0-32.0 [facility] Comment on above: Performed By: #### E TH, SALYC, ACET, CMP, TSH #### [facility] [address] [place] [address] Dr. Cornell Viera Creatinine [Mass/Vol] 0.77 mg/dL Normal 0.55-1.02 [facility] Comment on above: Performed By: #### E TH, SALYC, ACET, CMP, TSH #### [facility] [address] [place] [address] Dr. Cornell Viera EGFR-AF MACEDONIAN >60 Normal >=60 [facility] Comment on above: Performed By: #### E TH, SALYC, ACET, CMP, TSH #### [facility] [address] [address] [address] Cornell Viera EGFR-NON AF MACEDONIAN >60 Normal >=60 [facility] Comment on above: Performed By: #### E TH, SALYC, ACET, CMP, TSH #### [facility] [address] [address] [address] Cornell Viera Globulin (S) [Mass/Vol] 4.4 g/dL Normal [facility] Comment on above: Performed By: #### E TH, SALYC, ACET, CMP, TSH #### [facility] [address] [place] [address] Dr. Cornell Viera Glucose [Mass/Vol] 79 mg/dL Normal 74-106 [facility] Comment on above: Performed By: #### E TH, SALYC, ACET, CMP, TSH #### [facility] [address] [place] [address] Dr. Cornell Viera Potassium [Moles/Vol] 3.2 mmol/L Critically low 3.5-5.1 [facility] Comment on above: Performed By: #### E TH, SALYC, ACET, CMP, TSH #### [facility] [address] [place] [address] Dr. Cornell Viera Protein [Mass/Vol] 8.2 g/dL Normal 6.4-8.2 [facility] Comment on above: Performed By: #### E TH, SALYC, ACET, CMP, TSH #### [facility] [address] [place] [address] Dr. Cornell Viera Sodium [Moles/Vol] 138 mmol/L Normal 136-145 [facility] Comment on above: Performed By: #### E TH, SALYC, ACET, CMP, TSH #### [facility] [address] [place] [address] Dr. Cornell Viera Urea nitrogen [Mass/Vol] 8.0 mg/dL Normal 7.0-18.0 [facility] Comment on above: Performed By: #### E TH, SALYC, ACET, CMP, TSH #### [facility] [address] [place] [address] Dr. Cornell Viera Urea nitrogen/Creatinine [Mass ratio] 10.4 mg/mg Normal [facility] Comment on above: Performed By: #### E TH, SALYC, ACET, CMP, TSH #### [facility] [address] [place] [address] Dr. Cornell Viera SALICYLATEon 07-06-2022 SALICYLATE <2.8 Normal <=19.9 [facility] Comment on above: Performed By: #### E TH, SALYC, ACET, CMP, TSH #### [facility] [address] [place] [address] Dr. Cornell Viera TSHon 07-06-2022 TSH 1.055 uIU/mL Normal 0.358-3.740 [facility] Comment on above: Performed By: #### E TH, SALYC, ACET, CMP, TSH #### [facility] [address] [place] [address] Dr. Cornell Viera URINE MICROSCOPIC ONLYon BACTERIA MODERATE Abnormal NONE SEEN [facility] Comment on above: Performed By: #### C MP, LIPID #### [facility] [address] [place] [address] Dr. Cornell Viera Bacteria identified Cx Nom (U) INDICATED Normal [facility] Comment on above: Performed By: #### C MP, LIPID #### [facility] [address] [place] [address] Dr. Cornell Viera CAST SEEN Abnormal NONE SEEN [facility] Comment on above: Performed By: #### C MP, LIPID #### [facility] [address] [place] [address] Dr. Cornell Viera Crystals LM Nom (Urine sed) NONE SEEN Normal NONE SEEN [facility] Comment on above: Performed By: #### C MP, LIPID #### [facility] [address] [place] [address] Dr. Cornell Viera Epithelial cells LM Ql (Urine sed) MODERATE Abnormal NONE SEEN /RARE [facility] Comment on above: Performed By: #### C MP, LIPID #### [facility] [address] [address] [address] Cornell Viera MUCOUS NONE SEEN Normal NONE SEEN [facility] Comment on above: Performed By: #### C MP, LIPID #### [facility] [address] [address] [address] Cornell Viera RBC 0-2 Normal 0-2 [facility] Comment on above: Performed By: #### C MP, LIPID #### [facility] [address] [address] [address] Cornell Viera WBC 0-2 Abnormal NONE SEEN [facility] Comment on above: Performed By: #### C MP, LIPID #### [facility] [address] [place] [address] Dr. Cornell Viera ANES POSTPROC EVALon 022 ANES POSTPROC EVAL HNO ID: [id number] Author: Isidoro Alba MD Service: Anesthesiology Author Type: Anesthesiologist Type: Anesthesia Postprocedure Evaluation Filed: 07/03/2022 9:57 AM Note Text: POST ANESTHESIA EVALUATION NOTE : 1985 Procedure Summary Date: 07/03/22 Room / Location: [address] Anesthesia Start: 841 Anesthesia Stop: 925 Procedures: EXAM UNDER ANESTHESIA RECTAL (Anus) SPHINCTEROTOMY ANAL (Anus) Diagnosis: Anal fissure (Anal fissure [K60.2]) Surgeons: Maylin Downey MD Responsible Provider: Isidoro Alba MD Anesthesia Type: MAC ASA Status: 2 Anesthesia Type: MAC Last Vitals Vitals Value Taken Time BP 128/100 07/03/22 0950 Temp 36.4 ?C (97.5 ?F) 07/03/22 0950 Pulse 90 07/03/22 0950 Resp 18 07/03/22 0950 SpO2 100 % 07/03/22 0950 Post Anesthesia Patient Status Patient Evaluation: PACU. PACU/ICU Patient Condition: stable. Anticipated Disposition: phase 2 then home. Neurological Status: aware and responsive. Pulmonary Status: breathing comfortably on room air Airway Control: returned to baseline unsupported. Cardiovascular Status: stable. Pain Management: clinically adequate Postoperative Hydration: acceptable. Intraoperative Events: no significant anesthesia events Recommendation: continue current plan of care and further care per PACU/ICU/floor team. Anesthesia Observations No Documentation SIGNATURE: Isidoro Alba MD PATIENT NAME: Jodi Toledo DATE: July 03, 2022 TIME: 9:57 AM CSN: [id number] [facility] ANES PRE-OPon 07-03-2022 ANES PRE-OP HNO ID: [id number] Author: Isidoro Alba MD Service: Anesthesiology Author Type: Anesthesiologist Type: Anesthesia Preprocedure Evaluation Filed: 07/03/2022 7:47 AM Note Text: ANESTHESIOLOGY DAY OF SURGERY NOTE : 1985 Procedure Information Date/Time: 07/03/2215 Procedures: EXAM UNDER ANESTHESIA RECTAL (Anus) SPHINCTEROTOMY ANAL (Anus) Location: [address] / [facility] Surgeons: Maylin Downey MD Estimated body mass index is 36.32 kg/m? as calculated from the following: Height as of 06/28/22: 167.6 cm (5' 6 ). Weight as of 06/28/22: 102.1 kg (225 lb). Most recent hematocrit and potassium results: Potassium 3.8 05/12/2022 Relevant Problems ANESTHESIA (+) Sleep apnea CARDIO (+) Migraines NEURO-PSYCH (+) Migraines PULMONARY (+) Sleep apnea Other (+) Obesity, Class II, BMI 35-39.9 I - PHYSICAL EVALUATION AIRWAY Patient intubated: No. Tracheostomy tube not present Mallampati: II. TM distance: >3 FB. Neck ROM: full ROM without neurological symptoms. Mouth opening: adequate. Short neck: no. Thick neck: no DENTAL Dental findings: teeth intact. Additional exam findings: yes. CARDIOVASCULAR Normal cardiovascular observations. Rhythm: regular Rate: normal PULMONARY Normal pulmonary observations. Breath sounds clear to auscultation. II - ANESTHESIA PLAN ASA Score: 2 Anesthetic Plan: MAC NPO Status: adequate Monitoring plan: Standard ASA. Postoperative analgesic plan: multimodal analgesia. Informed Consent Anesthetic risks, benefits, alternatives, personnel and consent discussed: yes. Patient / Responsible Republican agrees to proceed: yes Patient / Surrogate agrees to blood products: blood products not planned Significant changes in the patient condition since the History and Physical, not otherwise documented in primary service progress note: no. Potential Anesthesia issues that may suggest increased risk of complications or contraindication to planned procedure: none. Vitals Value Taken Time BP 119/92 07/03/22726 Pulse 99 07/03/22726 Resp 16 07/03/22726 Temp 36.6 ?C (97.9 ?F) 07/03/22726 SpO2 100 % 07/03/22726 Facility-Administered Medications as of 07/03/2022 Medication Dose Route Frequency - acetaminophen 1,000 mg tab(s) (TYLENOL) 1,000 mg ORAL Pre-Op Once - promethazine 12.5 mg tab(s) (PHENERGAN) 12.5 mg ORAL Pre-Op Once - lactated ringers iv infusion 30 mL/hr INTRAVENOUS CONTINUOUS Outpatient Medications as of 07/03/2022 Medication Sig - FLUoxetine (PROZAC) 20 mg capsule Take 40 mg by mouth daily at bedtime. - docusate sodium (COLACE) 100 mg capsule Take 100 mg by mouth twice daily. - amitriptyline (ELAVIL) 25 mg tablet Take 25 mg by mouth. - acetaminophen 325 mg-caffeine 40 mg-butalbital 50 mg (FIORICET) per tablet TAKE 1 TABLET BY MOUTH AT THE ONSET OF MIGRAINE, MAY REPEAT EVERY 4 TO 6 HOURS. NO MORE THAN 2 TIMES A DAY AND 2 TIMES A WEEK - calcium carbonate (CALTRATE) 600 mg calcium (1,500 mg) tab Take 600 mg by mouth. - QUEtiapine (SEROQUEL) 25 mg tablet Take 25 mg by mouth. Takes 1.5 tablets by mouth daily - rosuvastatin (CRESTOR) 5 mg tablet Take 5 mg by mouth once daily. - topiramate (TOPAMAX) 100 mg tablet - medroxyPROGESTERone (DEPO-PROVERA) 150 mg/mL injection Inject 150 mg intramuscularly every 3 months. - lidocaine (XYLOCAINE) 5 % ointment APPLY NEEDED FOUR TIMES A DAY I have interviewed and examined the patient. I have reviewed the medical record and/or the pre-anesthesia evaluation, pertinent labs, and test results. This contains updated information obtained within 48 hours of Surgery/Procedure. SIGNATURE: Isidoro Alba MD PATIENT NAME: Jodi Toledo DATE: July 03, 2022 TIME: 7:46 AM CSN: [id number] [facility] OPERATIVE NOon 07-03-2022 OPERATIVE NO HNO ID: [id number] Author: Maylin Downey MD Service: Colorectal Author Type: Physician Type: Operative Report Filed: 07/03/2022 9:19 AM Note Text: COLON AND RECTAL SURGERY OPERATIVE REPORT PATIENT NAME: Jodi Toledo ADMISSION DATE: 07/03/2022 LOG ID: [id number] SURGERY/PROCEDURE DATE: 07/03/2022 INCISION/PROCEDURE START TIME: 8:56 AM INCISION CLOSE/PROCEDURE END TIME: 9:14 AM AGE: [age] year old SEX: female SURGEON(S)/PROCEDURALI ST(S) AND WAFER POLISHER(S): Surgeon(s) and Role: * Maylin Downey MD - Primary No Additional Staff ANESTHESIA: Monitored Anesthesia Care PREOPERATIVE DIAGNOSIS (ES): Chronic anal fissure POSTOPERATIVE DIAGNOSIS (ES): Chronic anal fissure NAME OF OPERATION: Exam under anesthesia, lateral internal sphincterotomy INDICATIONS FOR PROCEDURE: Chronic anal fissure refractory to medical management and Botox. No FI after Botox. OPERATIVE FINDINGS: Normal external hemorrhoids. Chronic posterior midline anal fissure. Hypertonic internal anal sphincter. Mildly enlarged internal hemorrhoids all locations DESCRIPTION OF PROCEDURE: The patient was brought to the operating room, placed under MAC anesthesia in the prone fransico-knife position. A surgical time-out was performed. The perineum was prepped and draped in normal sterile fashion and anesthetized with 40 mL of Exparel/0.5% Marcaine. A detailed digital rectal exam and anoscopy was performed which revealed the above findings. A 1 cm incision was made at the right lateral anal verge. The internal sphincter was dissected and divided. Hemostasis was ensured. The wound was lavaged and closed with interrupted 3-0 Vicryl suture. Bacitracin and gauze dressing was applied. The patient tolerated the procedure well and was brought to recovery in stable condition. ESTIMATED BLOOD LOSS: 5 mL SPECIMENS: None DRAINS: None COMPLICATIONS: None INTRAOPERATIVE FLUIDS: See anesthesia record. SPONGE/INSTRUMENT/NEED LE COUNTS: Correct x2. PRESENCE STATEMENT: I was present for the entire procedure as I have dictated above. Maylin Downey M.D. Department of Surgery Division of Colon and Rectal Surgery Normal [facility] HISTORY PHYSICALon HISTORY PHYSICAL HNO ID: [id number] Author: Kitty Lucia APRN.KILN HAND Service: ? Author Type: Nurse Practitioner Type: HANDP Filed: 06/28/2022 3:24 PM Note Text: PREANESTHESIA CONSULT CLINIC TELEHEALTH VISIT Patient has been identified by name and date of : Yes This is a virtual visit using Songkick video visit. It require patient-provider interaction for the medical decision making as documented below. Reason for contact: PACC visit Accompanied by: Self and mother Scheduled Surgery: EXAM UNDER ANESTHESIA RECTAL and SPHINCTEROTOMY ANAL Subjective CHIEF COMPLAINT: Patient presents with: Pre-Op Visit HPI: 36 year old female with history of anal fissure,had botox 05/25 without relief, now to have SPHINCTEROTOMY ANAL Pt uses lidocaine gel for pain as needed. She denies abdominal pain, nausea, vomiting, fevers or chills. ACTIVE PROBLEM LIST Anxiety Hld (Hyperlipidemia) Intellectual Disability Migraines Mood Disorder (Hcc) Sleep Apnea Obesity, Class II, Bmi 35-39.9 PAST MEDICAL HISTORY Diagnosis Date Anxiety HLD (hyperlipidemia) Intellectual disability patient's mother reports she is high functioning Migraines Mood disorder (HCC) Sleep apnea PAST SURGICAL HISTORY Procedure Laterality Date COLONOSCOPY SCREENING PAST SURGICAL HISTORY OF 05/2022 botox FAMILY HISTORY Problem Relation Age of Onset No Known Problems Mother Diabetes Father Anesthesia Problems No Family History Social History Tobacco Use Smoking status: Never Smokeless tobacco: Never Vaping Use Vaping Use: Never used Substance Use Topics Alcohol use: Never Drug use: Never ALLERGIES Allergen Reactions Penicillins Unknown MEDICATIONS: Current Outpatient Medications Medication Sig FLUoxetine (PROZAC) 20 mg capsule Take 40 mg by mouth daily at bedtime. medroxyPROGESTERone (DEPO-PROVERA) 150 mg/mL injection Inject 150 mg intramuscularly every 3 months. docusate sodium (COLACE) 100 mg capsule Take 100 mg by mouth twice daily. amitriptyline (ELAVIL) 25 mg tablet Take 25 mg by mouth. acetaminophen 325 mg-caffeine 40 mg-butalbital 50 mg (FIORICET) per tablet TAKE 1 TABLET BY MOUTH AT THE ONSET OF MIGRAINE, MAY REPEAT EVERY 4 TO 6 HOURS. NO MORE THAN 2 TIMES A DAY AND 2 TIMES A WEEK calcium carbonate (CALTRATE) 600 mg calcium (1,500 mg) tab Take 600 mg by mouth. lidocaine (XYLOCAINE) 5 % ointment APPLY NEEDED FOUR TIMES A DAY QUEtiapine (SEROQUEL) 25 mg tablet Take 25 mg by mouth. Takes 1.5 tablets by mouth daily rosuvastatin (CRESTOR) 5 mg tablet Take 5 mg by mouth once daily. topiramate (TOPAMAX) 100 mg tablet No current facility-administered medications for this visit. COVID VACCINATION STATUS: Fully vaccinated REVIEW OF SYSTEMS: Pain Assessment: General: No weight loss, malaise or fevers. UTI symptoms resolved Neuro: Postive for Headaches, Negative for Seizures Stroke-residual deficit Respiratory: Positive for SUZANNE uses CPAP, Negative for Current cough, Dyspnea Cardiovascular: Positive for: HLD, Negative for Arrhythmia, Chest Pain, DVT/PE GI: See HPI : No history of dysuria, frequency or incontinence,, stones or chronic kidney disease UTI symptoms resolved Endocrine: No history of diabetes. Has not taken steroids within the past 30 days. No history of endocrinological symptoms or problems. Hematology: No history of bleeding or clotting disorder. Pt is not taking anti-coagulation or platelet medications. No history of hematological symptoms or problems. Oncology: No history of CA metastasis, chemo within 30 days, or radiotherapy within 90 days. Has not lost 10% of body wt in 6 months. No history of oncological symptoms or problems. Psych: Anxiety, Depression, OCD per mother high functioning, therapist every 3 months for meds. Pt mother states pt stable on meds Musculoskeletal: Negative for joint pain or swelling, back pain or muscle pain. Skin: Negative for lesions, rash and itching. Objective PHYSICAL EXAM: Ht 5' 6 (1.68m) Wt 225 lb (102.1kg) BMI 36.33 kg/(m2). VIDEO EXAM: (if completed, performed via video enabled technology) GENERAL: alert and appropriate, in no distress, well-hydrated,and interactive BMI=36 SKIN: no rash noted HEAD: normocephalic, no abnormality or lesion noted EYES: no injection EARS: external ears normal NOSE: external nose normal without rhinorrhea OROPHARYNX: moist mucus membranes, lips, teeth and gums are without obvious lesion NECK: full ROM, no cervical LNs noted RESPIRATORY: breathing non-labored and no grunting/flaring/retra ctions CHEST: equal chest rise with normal respiratory effort HEART: Pt denies palpitations ABDOMEN: soft and non-tender EXTREMITIES: no reported LE edema per pt NEUROLOGIC: no obvious deficit Diagnostic tests reviewed for today's visit: Lab Value Units Date High Low HB No results within date range. HCT No results within date range. WBC No results within date range (more content not included)... Normal [facility] CNOVon 06-22-2022 CNOV Office Visit (CORSAV ) TOLEDOJODI Oneil ([id number]) 1985 F Date Time Provider Department 06/22/22 3:40 PM INOCENCIA JOHNSON During your visit today, we recorded the following information about you: Pulse Blood pressure 88/minute 113/72 Merissa Watkins RN 06/22/2022 2:58 PM Signed What is the reason for your visit today? EST patient f/u anal fissure Who is your referring physician? Are you having poor oral intake? NO Have you had unintentional weight loss of 15 lbs/7 Kg in the last 3-6 months? NO Bowels: soft / with bleeding Wound: none Temperature: No Drains: No Inocencia Johnson MD 06/22/2022 4:03 PM Signed COLORECTAL SURGERY June 22, 2022 Jodi Toledo 36 year old Chief Complaint: anal fissure History of Present Illness: Jodi Toledo is a 36 year old female presents today s/p rectal exam under anesthesia, Botox injection, excision of posterior perianal lesion on 05/16/22. She has noticed no difference since Botox injection. No issues with incontinence. Still with terrible pain PAST MEDICAL HISTORY Diagnosis Date Anxiety HLD (hyperlipidemia) Intellectual disability patient's mother reports she is high functioning Migraines Mood disorder (HCC) Sleep apnea PAST SURGICAL HISTORY Procedure Laterality Date COLONOSCOPY SCREENING Current Outpatient Medications Medication Sig Dispense Refill FLUoxetine (PROZAC) 20 mg capsule Take 40 mg by mouth daily at bedtime. medroxyPROGESTERone (DEPO-PROVERA) 150 mg/mL injection Inject 150 mg intramuscularly every 3 months. docusate sodium (COLACE) 100 mg capsule Take 100 mg by mouth twice daily. amitriptyline (ELAVIL) 25 mg tablet Take 25 mg by mouth. acetaminophen 325 mg-caffeine 40 mg-butalbital 50 mg (FIORICET) per tablet TAKE 1 TABLET BY MOUTH AT THE ONSET OF MIGRAINE, MAY REPEAT EVERY 4 TO 6 HOURS. NO MORE THAN 2 TIMES A DAY AND 2 TIMES A WEEK calcium carbonate (CALTRATE) 600 mg calcium (1,500 mg) tab Take 600 mg by mouth. lidocaine (XYLOCAINE) 5 % ointment APPLY NEEDED FOUR TIMES A DAY QUEtiapine (SEROQUEL) 25 mg tablet Take 25 mg by mouth. rosuvastatin (CRESTOR) 5 mg tablet Take 5 mg by mouth once daily. topiramate (TOPAMAX) 100 mg tablet No current facility-administered medications for this visit. ALLERGIES Allergen Reactions Penicillins Unknown FAMILY HISTORY Problem Relation Age of Onset No Known Problems Mother Diabetes Father Anesthesia Problems No Family History Social History Tobacco Use Smoking status: Never Smokeless tobacco: Never Vaping Use Vaping Use: Never used Substance Use Topics Alcohol use: Never Drug use: Never Physical Exam: BP 113/72 Pulse 88 SpO2 100% General Appearance: Well appearing, alert, in no acute distress, well-hydrated, well nourished. Anorectal: External exam reveals posterior midline anal fissure. Pier Hand present: Yes, Merissa Watkins Assessment Assessment and Plan: Jodi Toledo is a 36 year old female with posterior midline anal fissure that failed topical therapy and also failed Botox. She has a hypertonic anal sphincter and would be a good candidate for lateral internal sphincterotomy. She is agreeable. My ASC time is booking far out and they wished for something sooner. We have arranged for surgery to be scheduled on 07/[address] Maylin Downey. They are happy with this plan Inocencia Johnson MD Colorectal Surgery Referring Provider: NOE RICO [[id number]] Allergies As of Date: 06/22/2022 Noted Allergy Reaction PENICILLINS 04/20/2022 16 - Unknown Date Reviewed: 06/22/2022 Reviewed by: Inocencia Johnson MD - Fully Assessed Reason for Visit: Established Patient Follow-Up [[id number]] Cmt: F/u anal fissure Primary Visit Diagnosis:Follow-up examination after colorectal surgery [Z09] Prescriptions as of 06/22/2022 - FLUoxetine (PROZAC) 20 mg capsule Take 40 mg by mouth daily at bedtime. - medroxyPROGESTERone (DEPO-PROVERA) 150 mg/mL injection Inject 150 mg intramuscularly every 3 months. - docusate sodium (COLACE) 100 mg capsule Take 100 mg by mouth twice daily. - amitriptyline (ELAVIL) 25 mg tablet Take 25 mg by mouth. - acetaminophen 325 mg-caffeine 40 mg-butalbital 50 mg (FIORICET) per tablet TAKE 1 TABLET BY MOUTH AT THE ONSET OF MIGRAINE, MAY REPEAT EVERY 4 TO 6 HOURS. NO MORE THAN 2 TIMES A DAY AND 2 TIMES A WEEK - calcium carbonate (CALTRATE) 600 mg calcium (1,500 mg) tab Take 600 mg by mouth. - lidocaine (XYLOCAINE) 5 % ointment APPLY NEEDED FOUR TIMES A DAY - QUEtiapine (SEROQUEL) 25 mg tablet Take 25 mg by mouth. Takes 1.5 tablets by mouth daily - rosuvastatin (CRESTOR) 5 mg tablet Take 5 mg by mouth once daily. - topiramate (TOPAMAX) 100 mg tablet Problem List As Of Date 06/22/2022 Noted Resolved Anxiety [F41.9] 05/11/2022 HLD (hyperlipidemia) [E78.5] 05/11/2022 Intellectual disabi (more content not included)... Normal [facility] CBC AUTO DIFFon 06-07-2022 BASO # 0.1 103/ul Normal 0.0-0.1 [facility] Comment on above: Performed By: #### C MP, LIPID #### [facility] [address] [address] [address] Cornell Viera Basophils/100 WBC (Bld) 0.5 % Normal 0.2-2.0 [facility] Comment on above: Performed By: #### C MP, LIPID #### [facility] [address] [address] [address] Cornell Viera EO # 0.1 103/ul Normal 0.0-0.7 [facility] Comment on above: Performed By: #### C MP, LIPID #### [facility] [address] [place] [address] Dr. Cornell Viera Eosinophils/100 WBC (Bld) 0.5 % Critically low 0.9-7.0 [facility] Comment on above: Performed By: #### C MP, LIPID #### [facility] [address] [place] [address] Dr. Cornell Viera Erythrocyte distribution width (RBC) [Ratio] 14.7 % Normal 11.0-15.0 [facility] Comment on above: Performed By: #### C MP, LIPID #### [facility] [address] [place] [address] Dr. Cornell Viera Hematocrit (Bld) [Volume fraction] 40.8 % Normal 36.0-48.0 [facility] Comment on above: Performed By: #### C MP, LIPID #### [facility] [address] [place] [address] Dr. Cornell Viera Hemoglobin (Bld) [Mass/Vol] 13.2 g/dL Normal 12.0-16.0 [facility] Comment on above: Performed By: #### C MP, LIPID #### [facility] [address] [place] [address] Dr. Cornell Viera IG # 0.03 10e3/ul Normal 0.00-0.03 [facility] Comment on above: Performed By: #### C MP, LIPID #### [facility] [address] [place] [address] Dr. Cornell Viera IG % 0.3 % Normal 0.0-0.5 [facility] Comment on above: Performed By: #### C MP, LIPID #### [facility] [address] [place] [address] Dr. Cornell Viera LYMPH # 2.7 103/ul Normal 1.2-3.8 [facility] Comment on above: Performed By: #### C MP, LIPID #### [facility] [address] [place] [address] Dr. Cornell Viera Lymphocytes/100 WBC (Bld) 25.9 % Normal 20.5-60.0 [facility] Comment on above: Performed By: #### C MP, LIPID #### [facility] [address] [address] [address] Cornell Viera MANUAL DIFF REQ NO Normal [facility] Comment on above: Performed By: #### C MP, LIPID #### [facility] [address] [address] [address] Cornell Viera MCH (RBC) [Entitic mass] 28.0 pg Normal 26.7-34.0 [facility] Comment on above: Performed By: #### C MP, LIPID #### [facility] [address] [address] [address] Cornell Viera MCHC (RBC) [Mass/Vol] 32.4 g/dL Normal 29.9-35.2 [facility] Comment on above: Performed By: #### C MP, LIPID #### [facility] [address] [place] [address] Dr. Cornell Viera MCV (RBC) [Entitic vol] 86.4 fL Normal 81.0-99.0 [facility] Comment on above: Performed By: #### C MP, LIPID #### [facility] [address] [place] [address] Dr. Cornell Viera MONO # 0.7 103/ul Normal 0.3-0.8 [facility] Comment on above: Performed By: #### C MP, LIPID #### [facility] [address] [place] [address] Dr. Cornell Viera Monocytes/100 WBC (Bld) 7.1 % Normal 1.7-12.0 [facility] Comment on above: Performed By: #### C MP, LIPID #### [facility] [address] [address] [address] Cornell Viera NEUT # 6.8 103/ul Critically high 1.4-6.5 [facility] Comment on above: Performed By: #### C MP, LIPID #### [facility] [address] [place] [address] Dr. Cornell Viera Neutrophils/100 WBC (Bld) 65.7 % Normal 43.0-75.0 [facility] Comment on above: Performed By: #### C MP, LIPID #### [facility] [address] [address] [address] Cornell Viera Platelet mean volume (Bld) [Entitic vol] 9.7 fL Normal 9.5-13.5 [facility] Comment on above: Performed By: #### C MP, LIPID #### [facility] [address] [place] [address] Dr. Cornell Viera PLT 355 103/ul Normal 150-450 [facility] Comment on above: Performed By: #### C MP, LIPID #### [facility] [address] [place] [address] Dr. Cornell Viera RBC 4.72 106/ul Normal 4.20-5.40 [facility] Comment on above: Performed By: #### C MP, LIPID #### [facility] [address] [place] [address] Dr. Cornell Viera WBC 10.3 103/ul Normal 4.0-11.0 [facility] Comment on above: Performed By: #### C MP, LIPID #### [facility] [address] [place] [address] Dr. Cornell Viera CULTURE URINEon 06-07-2022 CULTURE URINE Culture Observations : LIGHT GROWTH OF MIXED GENITAL MARY JANE. NO POTENTIAL PATHOGENS SEEN. Normal [facility] Comment on above: Performed By: #### C MP, LIPID #### [facility] [address] [place] [address] Dr. Cornell Viera ER URINE PROFILEon 2 Bilirubin Ql (U) Negative Normal NEGATIVE [facility] Comment on above: Performed By: #### Mahin WALSH UMICRO #### [facility] [address] [place] [address] Dr. Cornell Viera Clarity (U) CLEAR Normal CLEAR [facility] Comment on above: Performed By: #### E NICO UMICRO #### [facility] [address] [place] [address] Dr. Cornell Viera Color (U) LT. YELLOW Normal YELLOW [facility] Comment on above: Performed By: #### CHRISTY FERRARIRO #### [facility] [address] [place] [address] Dr. Cornell HORAN A micrscopic examination will be performed if indicated. Normal [facility] Comment on above: Performed By: #### PATRICIA FERRARI #### [facility] [address] [place] [address] Dr. Cornell Viera Glucose Ql (U) Negative Normal NEGATIVE [facility] Comment on above: Performed By: #### CHRISTY FERRARIRO #### [facility] [address] [place] [address] Dr. Cornell Viera Hemoglobin Ql (U) TRACE-INTACT Abnormal NEGATIVE [facility] Comment on above: Performed By: #### CHRISTY FERRARIRO #### [facility] [address] [place] [address] Dr. Cornell Viera Ketones Ql (U) Negative Normal NEGATIVE [facility] Comment on above: Performed By: #### CHRISTY FERRARIRO #### [facility] [address] [place] [address] Dr. Cornell Viera LEUKOCYTES SMALL Abnormal NEGATIVE [facility] Comment on above: Performed By: #### CHRISTY FERRARIRO #### [facility] [address] [place] [address] Dr. Cornell Viera Nitrite Ql (U) Negative Normal NEGATIVE [facility] Comment on above: Performed By: #### CHRISTY FERRARIRO #### [facility] [address] [place] [address] Dr. Cornell Viera pH (U) 6.0 [pH] Normal 5-9 [facility] Comment on above: Performed By: #### CHRISTY FERRARIRO #### [facility] [address] [place] [address] Dr. Cornell Viera SPEC GRAVITY 1.025 Normal 1.005-<=1.0 25 [facility] Comment on above: Performed By: #### PATRICIA FERRARI #### [facility] [address] [place] [address] Dr. Cornell Viera UA PROTEIN Negative Normal NEGATIVE/ TRACE [facility] Comment on above: Performed By: #### GUSTABO FERRARIICRO #### [facility] [address] [place] [address] Dr. Cornell Viera UR MICRO IND INDICATED Normal [facility] Comment on above: Performed By: #### Mahin WALSH UMICRO #### [facility] [address] [place] [address] Dr. Cornell Viera Urobilinogen Qn (U) 0.2 {Presley'U}/dL Normal 0.2 - 1. 0 [facility] Comment on above: Performed By: #### Mahin WALSH UMICRO #### [facility] [address] [place] [address] Dr. Cornell Viera URon 06-07-2022 , QUAL Negative Normal NEGATIVE [facility] Comment on above: Performed By: #### Mahin WALSH UMICRO #### [facility] [address] [place] [address] Dr. Cornell Viera PROF 14(COMP METB)on 022 Albumin [Mass/Vol] 4.1 g/dL Normal 3.4-5.0 [facility] Comment on above: Performed By: #### Mahin WALSH UMICRO #### [facility] [address] [place] [address] Dr. Cornell Viera Albumin/Globulin [Mass ratio] 1.0 {ratio} Normal [facility] Comment on above: Performed By: #### Mahin WALSH UMICRO #### [facility] [address] [place] [address] Dr. Cornell Viera ALP [Catalytic activity/Vol] 80 U/L Normal 46-116 [facility] Comment on above: Performed By: #### Mahin WALSH UMICRO #### [facility] [address] [place] [address] Dr. Cornell Viera ALT [Catalytic activity/Vol] 38 U/L Normal 14-59 [facility] Comment on above: Performed By: #### Mahin WALSH UMICRO #### [facility] [address] [address] [address] Cornell Viera Anion gap [Moles/Vol] 14.3 mmol/L Normal [facility] Comment on above: Performed By: #### E RUR, UMICRO #### [facility] [address] [address] [address] Cornell Viera AST [Catalytic activity/Vol] 22 U/L Normal 15-37 [facility] Comment on above: Performed By: #### E RUR, UMICRO #### [facility] [address] [place] [address] Dr. Cornell Viera Bilirubin [Mass/Vol] 0.3 mg/dL Normal 0.2-1.0 [facility] Comment on above: Performed By: #### E HARLEYR, UMICRO #### [facility] [address] [place] [address] Dr. Cornell Viera Calcium [Mass/Vol] 9.3 mg/dL Normal 8.5-10.1 [facility] Comment on above: Performed By: #### E HARLEYR, UMICRO #### [facility] [address] [place] [address] Dr. Cornell Viera Chloride [Moles/Vol] 106 mmol/L Normal 98-107 [facility] Comment on above: Performed By: #### E HARLEYR, UMICRO #### [facility] [address] [place] [address] Dr. Cornell Viera CO2 [Moles/Vol] 21.4 mmol/L Normal 21.0-32.0 [facility] Comment on above: Performed By: #### E RUR, UMICRO #### [facility] [address] [place] [address] Dr. Cornell Viera Creatinine [Mass/Vol] 0.77 mg/dL Normal 0.55-1.02 [facility] Comment on above: Performed By: #### E RUR, UMICRO #### [facility] [address] [address] [address] Cornell Viera EGFR-AF MACEDONIAN >60 Normal >=60 [facility] Comment on above: Performed By: #### CHRISTY FERRARIRO #### [facility] [address] [place] [address] Dr. Cornell Viera EGFR-NON AF MACEDONIAN >60 Normal >=60 [facility] Comment on above: Performed By: #### CHRISTY FERRARIRO #### [facility] [address] [place] [address] Dr. Cornell Viera Globulin (S) [Mass/Vol] 4.3 g/dL Normal [facility] Comment on above: Performed By: #### CHRISTY FERRARIRO #### [facility] [address] [place] [address] Dr. Cornell Viera Glucose [Mass/Vol] 93 mg/dL Normal 74-106 [facility] Comment on above: Performed By: #### CHRISTY FERRARIRO #### [facility] [address] [place] [address] Dr. Cornell Viera Potassium [Moles/Vol] 3.7 mmol/L Normal 3.5-5.1 [facility] Comment on above: Performed By: #### CHRISTY FERRARIRO #### [facility] [address] [place] [address] Dr. Cornell Viera Protein [Mass/Vol] 8.4 g/dL Critically high 6.4-8.2 [facility] Comment on above: Performed By: #### CHRISTY FERRARIRO #### [facility] [address] [place] [address] Dr. Cornell Viera Sodium [Moles/Vol] 138 mmol/L Normal 136-145 [facility] Comment on above: Performed By: #### CHRISTY FERRARIRO #### [facility] [address] [place] [address] Dr. Cornell Viera Urea nitrogen [Mass/Vol] 10.0 mg/dL Normal 7.0-18.0 [facility] Comment on above: Performed By: #### CHRISTY FERRARIRO #### [facility] [address] [place] [address] Dr. Cornell Viera Urea nitrogen/Creatinine [Mass ratio] 13.0 mg/mg Normal [facility] Comment on above: Performed By: #### Mahin WALSH UMICRO #### [facility] [address] [place] [address] Dr. Cornell Viera URINE MICROSCOPIC ONLYon BACTERIA MODERATE Abnormal NONE SEEN [facility] Comment on above: Performed By: #### E RUR UMICRO #### [facility] [address] [place] [address] Dr. Cornell Viera Bacteria identified Cx Nom (U) INDICATED Normal [facility] Comment on above: Performed By: #### E NICO UMICRO #### [facility] [address] [place] [address] Dr. Cornell Viera CAST NONE SEEN Normal NONE SEEN [facility] Comment on above: Performed By: #### E NICO UMICRO #### [facility] [address] [place] [address] Dr. Cornell Viera Crystals LM Nom (Urine sed) NONE SEEN Normal NONE SEEN [facility] Comment on above: Performed By: #### Mahin WALSH UMICRO #### [facility] [address] [place] [address] Dr. Cornell Viera Epithelial cells LM Ql (Urine sed) MODERATE Abnormal NONE SEEN /RARE [facility] Comment on above: Performed By: #### Mahin WALSH UMICRO #### [facility] [address] [place] [address] Dr. Cornell Viera MUCOUS NONE SEEN Normal NONE SEEN [facility] Comment on above: Performed By: #### E RUYajaira UMICRO #### [facility] [address] [place] [address] Dr. Cornell Viera RBC 2-5 Abnormal 0-2 [facility] Comment on above: Performed By: #### E RUR, UMICRO #### [facility] [address] [place] [address] Dr. Cornell Viera WBC 5-10 Abnormal NONE SEEN [facility] Comment on above: Performed By: #### E RUR, UMICRO #### [facility] [address] [place] [address] Dr. Cornell Viera ANES POSTPROC EVALon 022 ANES POSTPROC EVAL HNO ID: [id number] Author: Quentin Rivera MD Service: ? Author Type: Physician Type: Anesthesia Postprocedure Evaluation Filed: 05/16/2022 1:52 PM Note Text: POST ANESTHESIA EVALUATION NOTE : 1985 Procedure Summary Date: 05/16/22 Room / Location: AV OR05 / AV OR Anesthesia Start: 1053 Anesthesia Stop: 1120 Procedures: EXAM UNDER ANESTHESIA RECTAL (Anus) INJECTION BOTOX (Anus) Diagnosis: Anal fissure Surgeons: Inocencia Johnson MD Responsible Provider: Quentin Rivera MD Anesthesia Type: MAC ASA Status: 2 Anesthesia Type: MAC Last Vitals Vitals Value Taken Time BP 116/66 05/16/22 1200 Temp 36.7 ?C (98 ?F) 05/16/22 1120 HR SpO2 81 05/16/22 1200 Resp 23 05/16/22 1200 SpO2 100 % 05/16/22 1200 Vitals shown include unvalidated device data. Post Anesthesia Patient Status Patient Evaluation: PACU. PACU/ICU Patient Condition: stable. Anticipated Disposition: phase 2 then home. Neurological Status: aware and responsive. Pulmonary Status: breathing comfortably on room air Airway Control: returned to baseline unsupported. Cardiovascular Status: stable. Pain Management: clinically adequate Postoperative Hydration: acceptable. Intraoperative Events: no significant anesthesia events Post Operative Nausea/Vomiting Status: no significant post operative nausea or vomiting Anesthetic Observations: Recommendation: continue current plan of care. Anesthesia Observations No Documentation SIGNATURE: Quentin Rivera MD PATIENT NAME: Jodi Toledo DATE: May 16, 2022 TIME: 1:52 PM CSN: [id number] [facility] ANES PRE-OPon 05-16-2022 ANES PRE-OP HNO ID: [id number] Author: Quentin Rivera MD Service: ? Author Type: Physician Type: Anesthesia Preprocedure Evaluation Filed: 05/16/2022 10:06 AM Note Text: ANESTHESIOLOGY DAY OF SURGERY NOTE : 1985 Procedure Information Date/Time: 05/16/22 1056 Procedures: EXAM UNDER ANESTHESIA RECTAL (Anus) INJECTION BOTOX (Anus) Location: AV OR05 / AV OR Surgeons: Inocencia Johnson MD Estimated body mass index is 39.86 kg/m? as calculated from the following: Height as of 05/11/22: 160 cm (5' 3 ). Weight as of 05/11/22: 102.1 kg (225 lb). Most recent hematocrit and potassium results: Potassium 3.8 05/12/2022 Relevant Problems ANESTHESIA (+) Sleep apnea CARDIO (+) Migraines NEURO-PSYCH (+) Migraines PULMONARY (+) Sleep apnea I - PHYSICAL EVALUATION AIRWAY Patient intubated: No. Tracheostomy tube not present Mallampati: II. TM distance: >3 FB. Neck ROM: full ROM without neurological symptoms. Mouth opening: adequate. Short neck: no. Thick neck: yes DENTAL Dental findings: teeth intact. II - ANESTHESIA PLAN ASA Score: 2 Anesthetic Plan: MAC The patient is not a current smoker. NPO Status: adequate Beta [place] Administration of chronic beta alexandria medication not planned. Reasons for not administering beta alexandria perioperatively: other Monitoring plan: standard ASA.Anesthetic plan additional comments: Mother (guardian) present.. Postoperative analgesic plan: parenteral or oral opioids. Informed Consent Anesthetic risks, benefits, alternatives, personnel and consent discussed: yes. Patient / Responsible Republican agrees to proceed: yes Patient / Surrogate agrees to blood products: blood products not planned DNR status not reviewed with patient and/or family prior to surgery. Significant changes in the patient condition since the History and Physical, not otherwise documented in primary service progress note: no. Potential Anesthesia issues that may suggest increased risk of complications or contraindication to planned procedure: none. No vitals data found for the desired time range. Facility-Administered Medications as of 05/16/2022 Medication Dose Route Frequency - lidocaine 10 mg/mL (1 %) 1-2 mg injection (XYLOCAINE) 0.1-0.2 mL INTRADERMAL PRN - lactated ringers iv infusion 5-30 mL/hr INTRAVENOUS CONTINUOUS - onabotulinum toxin type A 100 Units injection (BOTOX) 100 Units INTRAMUSCULAR ONCE Outpatient Medications as of 05/16/2022 Medication Sig - FLUoxetine (PROZAC) 20 mg capsule Take 40 mg by mouth daily at bedtime. - amitriptyline (ELAVIL) 25 mg tablet Take 25 mg by mouth. - acetaminophen 325 mg-caffeine 40 mg-butalbital 50 mg (FIORICET) per tablet TAKE 1 TABLET BY MOUTH AT THE ONSET OF MIGRAINE, MAY REPEAT EVERY 4 TO 6 HOURS. NO MORE THAN 2 TIMES A DAY AND 2 TIMES A WEEK - lidocaine (XYLOCAINE) 5 % ointment APPLY NEEDED FOUR TIMES A DAY - QUEtiapine (SEROQUEL) 25 mg tablet Take 25 mg by mouth. - rosuvastatin (CRESTOR) 5 mg tablet Take 5 mg by mouth once daily. - topiramate (TOPAMAX) 100 mg tablet I have interviewed and examined the patient. I have reviewed the medical record and/or the pre-anesthesia evaluation, pertinent labs, and test results. This contains updated information obtained within 48 hours of Surgery/Procedure. SIGNATURE: Quentin Rivera MD PATIENT NAME: Jodi Toledo DATE: May 16, 2022 TIME: 10:05 AM CSN: [id number] [facility] HISTORY PHYSICALon HISTORY PHYSICAL HNO ID: [id number] Author: Stone Montalvo MD Service: Colorectal Author Type: Resident Type: HANDP Filed: 05/16/2022 9:51 AM Note Text: Attestation signed by Inocencia Johnson MD at 05/16/2022 9:51 AM Attending Note I evaluated the patient and personally participated in the montejo components. I agree with the resident's findings and plan as documented and have discussed the case and management of the patient's care with the resident. Signature: Inocencia Johnson MD Date: 05/16/2022 Time: 9:51 AM UPDATED HISTORY AND PHYSICAL EXAMINATION SERVICE DATE: 05/16/2022 SERVICE TIME: 9:51 AM PHYSICAL EXAM MUST BE COMPLETED ON ADMISSION The History and Physical (completed in the past 30 days) has been reviewed and the patient has been examined. The contents accurately reflect the patient's condition with the following additions or revisions since the HANDP was completed. Examination indicates no changes. This HANDP can be found in the attached or in the electronic records. SIGNATURE: Stone Montalvo MD PATIENT NAME: Jodi Toledo DATE: May 16, 2022 TIME: 9:51 AM PAGER: [phone] [facility] OPERATIVE NOon 05-16-2022 OPERATIVE NO HNO ID: [id number] Author: Inocencia Johnson MD Service: Colorectal Author Type: Physician Type: Operative Report Filed: 05/16/2022 11:14 AM Note Text: COLON AND RECTAL SURGERY OPERATIVE REPORT PATIENT NAME: Jodi Toledo ADMISSION DATE: 05/16/2022 LOG ID: [id number] SURGERY/PROCEDURE DATE: 05/16/2022 INCISION/PROCEDURE START TIME: 11:06 AM INCISION CLOSE/PROCEDURE END TIME: 11:10 AM AGE: [age] year old SEX: female SURGEON(S)/PROCEDURALI ST(S) AND WAFER POLISHER(S): Surgeon(s) and Role: * Inocencia Johnson MD - Primary * Stone Montalvo MD - Resident - Assisting No Additional Staff ANESTHESIA: Monitored Anesthesia Care PREOPERATIVE DIAGNOSIS (ES): Anal fissure POSTOPERATIVE DIAGNOSIS (ES): Anal fissure NAME OF OPERATION: Rectal exam under anesthesia, Botox injection, excision of posterior perianal lesion INDICATIONS FOR PROCEDURE: Anal fissure not responding to medical treatment OPERATIVE FINDINGS: Posterior midline anal fissure, hypertonic anal sphincter DESCRIPTION OF PROCEDURE: The patient was brought to the operating room, placed under MAC anesthesia in the lithotomy position. A surgical time-out was performed. The perineum was prepped and draped in normal sterile fashion and anesthetized with 40 mL of 0.25% Marcaine. A detailed digital rectal exam and anoscopy was performed which revealed a posterior midline anal fissure and associated sentinel pile. The sentinel pile was excised with electrocautery. 100 units of Botox was drawn up and injected into the anal fissure and surrounding internal anal sphincter muscle. Hemostasis was obtained and dressing applied. ESTIMATED BLOOD LOSS: 2 cc SPECIMENS: Perianal lesion/sentinel pile DRAINS: None COMPLICATIONS: None INTRAOPERATIVE FLUIDS: See anesthesia record. SPONGE/INSTRUMENT/NEED LE COUNTS: Correct x2. PRESENCE STATEMENT: I was present for the entire procedure as I have dictated above. Inocencia Johnson M.D. Department of Surgery Division of Colon and Rectal Surgery [facility] SURGICAL PATHOLOGYon CASE REPORT [facility] Comment on above: Order Comment: Speci men Type: TISSUE SPECIMEN Ordering Facility: [facility] Address: [address] [place], [place] [id number] Result Comment: Surg ical Pathology Report Case: [id number] Authorizing Provider: Inocencia Johnson MD Collected: 05/16/2022 11:10 AM Ordering Location: [facility] Surgery Received: 05/16/2022 12:39 PM Pathologist: Jame Aleman MD Specimen: SKIN EXCISION, Posterior perianal lesion Performed By: #### S #### [facility] CLIA [id number] [address] [place] [address] FINAL DIAGNOSIS [facility] Comment on above: Order Comment: Speci men Type: TISSUE SPECIMEN Ordering Facility: [facility] Address: [address] [place], [place] [id number] Result Comment: A. S kin, posterior perianal lesion, excision: -Fibroepithelial polyp. Performed By: #### S #### [facility] CLIA [id number] [address] [place] [address] OF THERESE FINAL PERFORMING LAB [facility] Comment on above: Order Comment: Speci men Type: TISSUE SPECIMEN Ordering Facility: [facility] Address: [address] [place], [place] [id number] Result Comment: Diag nostic interpretation performed at [facility], [address] [place] [address] CLIA# [id number] Traffic Control Specialist: Gerardo Gilliam M.D. Performed By: #### S #### [facility] CLIA [id number] [address] [place] [address] [place] GROSS DESCRIPTION [facility] Comment on above: Order Comment: Speci men Type: TISSUE SPECIMEN Ordering Facility: [facility] Address: [address] [place] [address] Result Comment: A. S KIN EXCISION Received in formalin is an unoriented irregular segment of skin and minimal subcutaneous tissue measuring 0.7 x 0.4 x 0.5 cm. The skin surface is pink-norwood and entirely elevated and wrinkled. The margins are inked black. Specimen is sectioned. Totally submitted in formalin as follows: A1 tips, A2 remainder of tissue. CL May 16, 2022 6:01 PM Gross examination performed at [facility], [address] [place] [address] Performed By: #### S #### [facility] [place] [id number] [address] [place] [address] [place] HCG ( test) [place].rapi d Ql (U)Ordered By: Wilfredo Ortiz on 03-27-2022 HCG ( test) Ql (U) Negative [facility] ACETAMINOPHENon 03-07-2022 Acetaminophen [Mass/Vol] ug/mL Critically low 10.0-30.0 [facility] Comment on above: Performed By: #### PATRICIA FERRARI #### [facility] [address] [place] [address] Dr. Cornell Viera CBC AUTO DIFFon 03-07-2022 BASO # 0.0 103/ul Normal 0.0-0.1 [facility] Comment on above: Performed By: #### PATRICIA FERRARI #### [facility] [address] [address] [address] Cornell Viera Basophils/100 WBC (Bld) 0.4 % Normal 0.2-2.0 [facility] Comment on above: Performed By: #### PATRICIA FERRARI #### [facility] [address] [place] [address] Dr. Cornell Viera EO # 0.0 103/ul Normal 0.0-0.7 [facility] Comment on above: Performed By: #### CHRISTY FERRARIRO #### [facility] [address] [place] [address] Dr. Cornell Viera Eosinophils/100 WBC (Bld) 0.4 % Critically low 0.9-7.0 [facility] Comment on above: Performed By: #### GUSTABO FERRARIICRO #### [facility] [address] [place] [address] Dr. Cornell Viera Erythrocyte distribution width (RBC) [Ratio] 14.6 % Normal 11.0-15.0 [facility] Comment on above: Performed By: #### CHRISTY FERRARIRO #### [facility] [address] [place] [address] Dr. Cornell Viera Hematocrit (Bld) [Volume fraction] 42.1 % Normal 36.0-48.0 [facility] Comment on above: Performed By: #### CHRISTY FERRARIRO #### [facility] [address] [place] [address] Dr. Cornell Viera Hemoglobin (Bld) [Mass/Vol] 13.6 g/dL Normal 12.0-16.0 [facility] Comment on above: Performed By: #### Mahin WALSH UMICRO #### [facility] [address] [place] [address] Dr. Cornell Viera IG # 0.03 10e3/ul Normal 0.00-0.03 [facility] Comment on above: Performed By: #### Mahin WALSH UMICRO #### [facility] [address] [place] [address] Dr. Cornell Viera IG % 0.3 % Normal 0.0-0.5 [facility] Comment on above: Performed By: #### Mahin WALSH UMICRO #### [facility] [address] [place] [address] Dr. Cornell Viera LYMPH # 3.1 103/ul Normal 1.2-3.8 [facility] Comment on above: Performed By: #### CHRISTY FERRARIRO #### [facility] [address] [place] [address] Dr. Cornell Viera Lymphocytes/100 WBC (Bld) 27.8 % Normal 20.5-60.0 [facility] Comment on above: Performed By: #### CHRISTY FERRARIRO #### [facility] [address] [place] [address] Dr. Cornell Viera MANUAL DIFF REQ NO Normal [facility] Comment on above: Performed By: #### CHRISTY FERRARIRO #### [facility] [address] [place] [address] Dr. Cornell Viera MCH (RBC) [Entitic mass] 28.0 pg Normal 26.7-34.0 [facility] Comment on above: Performed By: #### CHRISTY FERRARIRO #### [facility] [address] [place] [address] Dr. Cornell Viera MCHC (RBC) [Mass/Vol] 32.3 g/dL Normal 29.9-35.2 [facility] Comment on above: Performed By: #### CHRISTY FERRARIRO #### [facility] [address] [place] [address] Dr. Cornell Viera MCV (RBC) [Entitic vol] 86.8 fL Normal 81.0-99.0 [facility] Comment on above: Performed By: #### CHRISTY FERRARIRO #### [facility] [address] [place] [address] Dr. Cornell Viera MONO # 0.8 103/ul Normal 0.3-0.8 [facility] Comment on above: Performed By: #### CHRISTY FERRARIRO #### [facility] [address] [place] [address] Dr. Cornell Viera Monocytes/100 WBC (Bld) 6.9 % Normal 1.7-12.0 [facility] Comment on above: Performed By: #### CHRISTY FERRARIRO #### [facility] [address] [place] [address] Dr. Cornell Viera NEUT # 7.0 103/ul Critically high 1.4-6.5 [facility] Comment on above: Performed By: #### CHRISTY FERRARIRO #### [facility] [address] [place] [address] Dr. Cornell Viera Neutrophils/100 WBC (Bld) 64.2 % Normal 43.0-75.0 [facility] Comment on above: Performed By: #### GUSTABO FERRARIICRO #### [facility] [address] [place] [address] Dr. Cornell Viera Platelet mean volume (Bld) [Entitic vol] 9.7 fL Normal 9.5-13.5 [facility] Comment on above: Performed By: #### GUSTABO FERRARIICRO #### [facility] [address] [place] [address] Dr. Cornell Viera PLT 342 103/ul Normal 150-450 [facility] Comment on above: Performed By: #### Mahin WALSH UMICRO #### [facility] [address] [place] [address] Dr. Cornell Viera RBC 4.85 106/ul Normal 4.20-5.40 [facility] Comment on above: Performed By: #### Mahin WALSH UMICRO #### [facility] [address] [place] [address] Dr. Cornell Viera WBC 11.0 103/ul Normal 4.0-11.0 [facility] [facility] Comment on above: Performed By: #### Mahin WALSH UMICRO #### [facility] [address] [place] [address] Dr. Cornell Viera CRPon 03-07-2022 CRP 0.2 mg/dL Normal <=1.0 [facility] Comment on above: Performed By: #### Mahin WALSH UMICRO #### [facility] [address] [place] [address] Dr. Cornell Viera CULTURE BLOODon 03-07-2022 Microscopic examination of blood, culture Culture Observations: NO GROWTH AT 5 DAYS. Normal [facility] Comment on above: Performed By: #### C MP, LIPID #### [facility] [address] [address] [address] Cornell Viera CULTURE URINEon 03-07-2022 CULTURE URINE Culture Observations : MODERATE GROWTH OF MIXED GENITAL MARY JANE. NO POTENTIAL PATHOGENS SEEN. Normal [facility] Comment on above: Performed By: #### C MP, LIPID #### [facility] [address] [place] [address] Dr. Cornell Viera DRUG SCREEN RAPID (URINE)on 03-07-2022 AMP Negative Normal NEGATIVE [facility] Comment on above: Performed By: #### C MP, LIPID #### [facility] [address] [place] [address] Dr. Cornell Viera BAR Positive Abnormal NEGATIVE [facility] Comment on above: Performed By: #### C MP, LIPID #### [facility] [address] [place] [address] Dr. Cornell Viera BUP Negative Normal NEGATIVE [facility] Comment on above: Performed By: #### C MP, LIPID #### [facility] [address] [place] [address] Dr. Cornell Viera BZO Positive Abnormal NEGATIVE [facility] Comment on above: Performed By: #### C MP, LIPID #### [facility] [address] [place] [address] Dr. Cornell Viera ANHAI Negative Normal NEGATIVE [facility] Comment on above: Performed By: #### C MP, LIPID #### [facility] [address] [place] [address] Dr. Cornell Viera CUT-OFFS SEE BELOW Normal [facility] Comment on above: Result Comment: AMP (Amphetamine): 500ng/mL, BAR (Barbituates): 200 ng/mL, BZO (Benzodiazepines): 150 ng/mL, BUP (Buprenorphine): 10 ng/mL, ANAHI (Cocaine): 150 ng/mL, mAMP (Methamphetamine): 500 ng/mL, MTD (Methadone): 200 ng/mL, OPI (Opiates): 100 ng/mL, OXY (Oxycodone): 100 ng/mL, PCP (Phencyclidine): 25 ng/mL, PPX (Propoxyphene): 300 ng/mL, THC (Cannabinoids): 50 ng/mL, TCA (Trycyclic Antidepressants): 300 ng/mL Performed By: #### C MP, LIPID #### [facility] [address] [place] [address] Dr. Cornell Viera DRUG CUT HEADER DRUG CLASS TEST SYST EM CUT-OFF CONCENTRATIONS ARE FOLLOWS: Normal [facility] Comment on above: Performed By: #### C MP, LIPID #### [facility] [address] [place] [address] Dr. Cornell Viera mAMP Negative Normal NEGATIVE [facility] Comment on above: Performed By: #### C MP, LIPID #### [facility] [address] [place] [address] Dr. Cornell Viera MTD Negative Normal NEGATIVE [facility] Comment on above: Performed By: #### C MP, LIPID #### [facility] [address] [place] [address] Dr. Cornell Viera OPI Negative Normal NEGATIVE [facility] Comment on above: Performed By: #### C MP, LIPID #### [facility] [address] [place] [address] Dr. Cornell Viera OXY Negative Normal NEGATIVE [facility] Comment on above: Performed By: #### C MP, LIPID #### [facility] [address] [place] [address] Dr. Cornell Viera PCP Negative Normal NEGATIVE [facility] Comment on above: Performed By: #### C MP, LIPID #### [facility] [address] [place] [address] Dr. Cornell Viera PPX Negative Normal NEGATIVE [facility] Comment on above: Performed By: #### C MP, LIPID #### [facility] [address] [place] [address] Dr. Cornell Viera TCA Positive Abnormal NEGATIVE [facility] Comment on above: Performed By: #### C MP, LIPID #### [facility] [address] [place] [address] Dr. Cornell Viera THC Negative Normal NEGATIVE [facility] Comment on above: Performed By: #### C MP, LIPID #### [facility] [address] [place] [address] Dr. Cornell RAGLAND URINE PROFILEon 2 Bilirubin Ql (U) Negative Normal NEGATIVE [facility] Comment on above: Performed By: #### C MP, LIPID #### [facility] [address] [place] [address] Dr. Cornell Viera Clarity (U) CLEAR Normal CLEAR [facility] Comment on above: Performed By: #### C MP, LIPID #### [facility] [address] [place] [address] Dr. Cornell Viera Color (U) DK. YELLOW Normal YELLOW [facility] Comment on above: Performed By: #### C MP, LIPID #### [facility] [address] [place] [address] Dr. Cornell HORAN A micrscopic examination will be performed if indicated. Normal [facility] Comment on above: Performed By: #### C MP, LIPID #### [facility] [address] [place] [address] Dr. Cornell Viera Glucose Ql (U) Negative Normal NEGATIVE [facility] Comment on above: Performed By: #### C MP, LIPID #### [facility] [address] [place] [address] Dr. Cornell Viera Hemoglobin Ql (U) LARGE Abnormal NEGATIVE [facility] Comment on above: Performed By: #### C MP, LIPID #### [facility] [address] [place] [address] Dr. Cornell Viera Ketones Ql (U) 15 mg/dl Abnormal NEGATIVE [facility] Comment on above: Performed By: #### C MP, LIPID #### [facility] [address] [place] [address] Dr. Cornell Viera LEUKOCYTES Negative Normal NEGATIVE [facility] Comment on above: Performed By: #### C MP, LIPID #### [facility] [address] [place] [address] Dr. Cornell Viera Nitrite Ql (U) Negative Normal NEGATIVE [facility] Comment on above: Performed By: #### C MP, LIPID #### [facility] [address] [place] [address] Dr. Cornell Viera pH (U) 5.5 [pH] Normal 5-9 [facility] Comment on above: Performed By: #### C MP, LIPID #### [facility] [address] [place] [address] Dr. Cornell Viera Protein (U) [Mass/Vol] 30 mg/dL Abnormal NEGATIVE/ TRACE [facility] Comment on above: Performed By: #### C MP, LIPID #### [facility] [address] [place] [address] Dr. Cornell Viera SPEC GRAVITY >=1.030 Abnormal 1.005-<=1.0 25 [facility] Comment on above: Performed By: #### C MP, LIPID #### [facility] [address] [place] [address] Dr. Cornell Viera UR MICRO IND INDICATED Normal [facility] Comment on above: Performed By: #### C MP, LIPID #### [facility] [address] [place] [address] Dr. Cornell Viera Urobilinogen Qn (U) 0.2 {Presley'U}/dL Normal 0.2 - 1. 0 [facility] Comment on above: Performed By: #### C MP, LIPID #### [facility] [address] [place] [address] Dr. Cornell Viera ETHANOL (BLD ALC)on 03-07-20 22 ALC NOTE NOTE: 80 mg/dl is th e legal limit for a blood alcohol level Normal [facility] Comment on above: Performed By: #### E CHRISTY WALSHRO #### [facility] [address] [place] [address] Dr. Cornell Viera Ethanol [Mass/Vol] mg/dL Normal [facility] Comment on above: Performed By: #### E NICO UMICRO #### [facility] [address] [place] [address] Dr. Cornell Viera LACTATE/LACTIC ACIDon 2021 Lactate [Moles/Vol] 1.2 mmol/L Normal 0.4-1.9 [facility] Comment on above: Performed By: #### C MP, LIPID #### [facility] [address] [place] [address] Dr. Cornell Viera URon 03-07-2022 , QUAL Negative Normal NEGATIVE [facility] Comment on above: Performed By: #### CHRISTY FERRARIRO #### [facility] [address] [place] [address] Dr. Cornell Viera PROF 14(COMP METB)on 022 Albumin [Mass/Vol] 4.3 g/dL Normal 3.4-5.0 [facility] Comment on above: Performed By: #### CHRISTY FERRARIRO #### [facility] [address] [place] [address] Dr. Cornell Viera Albumin/Globulin [Mass ratio] 1.0 {ratio} Normal [facility] Comment on above: Performed By: #### CHRISTY FERRARIRO #### [facility] [address] [place] [address] Dr. Cornell Viera ALP [Catalytic activity/Vol] 94 U/L Normal 46-116 [facility] Comment on above: Performed By: #### CHRISTY FERRARIRO #### [facility] [address] [place] [address] Dr. Cornell Viera ALT [Catalytic activity/Vol] 48 U/L Normal 14-59 [facility] Comment on above: Performed By: #### CHRISTY FERRARIRO #### [facility] [address] [place] [address] Dr. Cornell Viera Anion gap [Moles/Vol] 16.4 mmol/L Normal [facility] Comment on above: Performed By: #### CHRISTY FERRARIRO #### [facility] [address] [place] [address] Dr. Cornell Viera AST [Catalytic activity/Vol] 13 U/L Critically low 15-37 [facility] Comment on above: Performed By: #### CHRISTY FERRARIRO #### [facility] [address] [place] [address] Dr. Cornell Viera Bilirubin [Mass/Vol] 0.3 mg/dL Normal 0.2-1.0 [facility] Comment on above: Performed By: #### E HARLEYR, UMICRO #### [facility] [address] [place] [address] Dr. Cornell Viera Calcium [Mass/Vol] 10.3 mg/dL Critically high 8.5-10.1 [facility] Comment on above: Performed By: #### E RUR, UMICRO #### [facility] [address] [place] [address] Dr. Cornell Viera Chloride [Moles/Vol] 103 mmol/L Normal 98-107 [facility] Comment on above: Performed By: #### E NICO, UMICRO #### [facility] [address] [place] [address] Dr. Cornell Viera CO2 [Moles/Vol] 22.8 mmol/L Normal 21.0-32.0 [facility] Comment on above: Performed By: #### Mahin WALSH, UMICRO #### [facility] [address] [place] [address] Dr. Cornell Viera Creatinine [Mass/Vol] 0.80 mg/dL Normal 0.55-1.02 [facility] Comment on above: Performed By: #### Mahin SOUZAR, UMICRO #### [facility] [address] [place] [address] Dr. Cornell Viera EGFR-AF MACEDONIAN >60 Normal >=60 [facility] Comment on above: Performed By: #### E RUR, UMICRO #### [facility] [address] [place] [address] Dr. Cornell Viera EGFR-NON AF MACEDONIAN >60 Normal >=60 [facility] Comment on above: Performed By: #### E RUR, UMICRO #### [facility] [address] [place] [address] Dr. Cornell Viera Globulin (S) [Mass/Vol] 4.1 g/dL Normal [facility] Comment on above: Performed By: #### E RUR, UMICRO #### [facility] [address] [place] [address] Dr. Cornell Viera Glucose [Mass/Vol] 89 mg/dL Normal 74-106 [facility] Comment on above: Performed By: #### E NICO UMICRO #### [facility] [address] [place] [address] Dr. Cornell Viera Potassium [Moles/Vol] 3.2 mmol/L Critically low 3.5-5.1 [facility] Comment on above: Performed By: #### E NICO UMICRO #### [facility] [address] [place] [address] Dr. Cornell Viera Protein [Mass/Vol] 8.4 g/dL Critically high 6.4-8.2 [facility] Comment on above: Performed By: #### Mahin WALSH UMICRO #### [facility] [address] [place] [address] Dr. Cornell Viera Sodium [Moles/Vol] 139 mmol/L Normal 136-145 [facility] Comment on above: Performed By: #### Mahin WALSH UMICRO #### [facility] [address] [place] [address] Dr. Cornell Viera Urea nitrogen [Mass/Vol] 10.0 mg/dL Normal 7.0-18.0 [facility] Comment on above: Performed By: #### Mahin WALSH UMICRO #### [facility] [address] [place] [address] Dr. Cornell Viera Urea nitrogen/Creatinine [Mass ratio] 12.5 mg/mg Normal [facility] Comment on above: Performed By: #### Mahin WALSH UMICRO #### [facility] [address] [place] [address] Dr. Cornell Viera SALICYLATEon 03-07-2022 SALICYLATE <2.8 Normal <=19.9 [facility] Comment on above: Performed By: #### Mahin WALSH UMICRO #### [facility] [address] [place] [address] Dr. Cornell Viera SED RATE WESTERGRENon 2021 SED RATE 58 mm/hr Critically high <=20 [facility] Comment on above: Performed By: #### E PATRICIA WALSH #### [facility] [address] [place] [address] Dr. Cornell Viera URINE MICROSCOPIC ONLYon BACTERIA TRACE Abnormal NONE SEEN [facility] Comment on above: Performed By: #### C MP, LIPID #### [facility] [address] [address] [address] Cornell Viera Bacteria identified Cx Nom (U) INDICATED Normal [facility] Comment on above: Performed By: #### C MP, LIPID #### [facility] [address] [place] [address] Dr. Cornell Viera CAST NONE SEEN Normal NONE SEEN [facility] Comment on above: Performed By: #### C MP, LIPID #### [facility] [address] [place] [address] Dr. Cornell Viera Crystals LM Nom (Urine sed) NONE SEEN Normal NONE SEEN [facility] Comment on above: Performed By: #### C MP, LIPID #### [facility] [address] [place] [address] Dr. Cornell Viera Epithelial cells LM Ql (Urine sed) RARE Normal NONE SEEN /RARE [facility] Comment on above: Performed By: #### C MP, LIPID #### [facility] [address] [place] [address] Dr. Cornell Viera MUCOUS SMALL Abnormal NONE SEEN [facility] Comment on above: Performed By: #### C MP, LIPID #### [facility] [address] [place] [address] Dr. Cornell Viera RBC 20-50 Abnormal 0-2 [facility] Comment on above: Performed By: #### C MP, LIPID #### [facility] [address] [place] [address] Dr. Cornell Viera WBC 5-10 Abnormal NONE SEEN [facility] Comment on above: Performed By: #### C MP, LIPID #### [facility] [address] [place] [address] Dr. Cornell Viera COVID-19 SOFIAOrdered By: Shirley Ortiz on 03-03-2022 SARS-CoV+SARS-CoV-2 (COVID-19) Ag IA.rapid Ql (Resp) Positive Negative [facility] Comment on above: This is a duplicate [place] SARS Antigen (MARY JANE) result to be used for statistical tracking purpose only. No Panel InformationOrdered By: Wilfredo Ortiz on 03-03-2022 SARS Antigen (LFIA) [facility] CBC AUTO DIFFon 02-22-2022 BASO # 0.1 103/ul Normal 0.0-0.1 [facility] Comment on above: Performed By: #### C BC #### [facility] [address] [place] [address] Dr. Cornell Viera Basophils/100 WBC (Bld) 0.8 % Normal 0.2-2.0 [facility] Comment on above: Performed By: #### C BC #### [facility] [address] [address] [address] Cornell Viera EO # 0.1 103/ul Normal 0.0-0.7 [facility] Comment on above: Performed By: #### C BC #### [facility] [address] [address] [address] Cornell Viera Eosinophils/100 WBC (Bld) 0.5 % Critically low 0.9-7.0 [facility] Comment on above: Performed By: #### C BC #### [facility] [address] [address] [address] Cornell Viera Erythrocyte distribution width (RBC) [Ratio] 14.4 % Normal 11.0-15.0 [facility] Comment on above: Performed By: #### C BC #### [facility] [address] [place] [address] Dr. Cornell Viera Hematocrit (Bld) [Volume fraction] 43.0 % Normal 36.0-48.0 [facility] Comment on above: Performed By: #### C BC #### [facility] [address] [place] [address] Dr. Cornell Viera Hemoglobin (Bld) [Mass/Vol] 13.6 g/dL Normal 12.0-16.0 [facility] Comment on above: Performed By: #### C BC #### [facility] [address] [place] [address] Dr. Cornell Viera IG # 0.02 10e3/ul Normal 0.00-0.03 [facility] Comment on above: Performed By: #### C BC #### [facility] [address] [place] [address] Dr. Cornell Viera IG % 0.2 % Normal 0.0-0.5 [facility] Comment on above: Performed By: #### C BC #### [facility] [address] [place] [address] Dr. Cornell Viera LYMPH # 2.8 103/ul Normal 1.2-3.8 [facility] Comment on above: Performed By: #### C BC #### [facility] [address] [place] [address] Dr. Cornell Viera Lymphocytes/100 WBC (Bld) 26.6 % Normal 20.5-60.0 [facility] Comment on above: Performed By: #### C BC #### [facility] [address] [place] [address] Dr. Cornell Viera MANUAL DIFF REQ NO Normal [facility] Comment on above: Performed By: #### C BC #### [facility] [address] [place] [address] Dr. Cornell Viera MCH (RBC) [Entitic mass] 27.8 pg Normal 26.7-34.0 [facility] Comment on above: Performed By: #### C BC #### [facility] [address] [place] [address] Dr. Cornell Viera MCHC (RBC) [Mass/Vol] 31.6 g/dL Normal 29.9-35.2 [facility] Comment on above: Performed By: #### C BC #### [facility] [address] [place] [address] Dr. Cornell Viera MCV (RBC) [Entitic vol] 87.9 fL Normal 81.0-99.0 [facility] Comment on above: Performed By: #### C BC #### [facility] [address] [place] [address] Dr. Cornell Viera MONO # 0.8 103/ul Normal 0.3-0.8 [facility] Comment on above: Performed By: #### C BC #### [facility] [address] [place] [address] Dr. Cornell Viera Monocytes/100 WBC (Bld) 7.9 % Normal 1.7-12.0 [facility] Comment on above: Performed By: #### C BC #### [facility] [address] [place] [address] Dr. Cornell Viera NEUT # 6.7 103/ul Critically high 1.4-6.5 [facility] Comment on above: Performed By: #### C BC #### [facility] [address] [place] [address] Dr. Cornell Viera Neutrophils/100 WBC (Bld) 64.0 % Normal 43.0-75.0 [facility] Comment on above: Performed By: #### C BC #### [facility] [address] [place] [address] Dr. Cornell Viera Platelet mean volume (Bld) [Entitic vol] 9.5 fL Normal 9.5-13.5 [facility] Comment on above: Performed By: #### C BC #### [facility] [address] [place] [address] Dr. Cornell Viera PLT 337 103/ul Normal 150-450 [facility] Comment on above: Performed By: #### C BC #### [facility] [address] [place] [address] Dr. Cornell Viera RBC 4.89 106/ul Normal 4.20-5.40 [facility] Comment on above: Performed By: #### C BC #### [facility] [address] [place] [address] Dr. Cornell Viera WBC 10.5 103/ul Normal 4.0-11.0 [facility] Comment on above: Performed By: #### C BC #### [facility] [address] [place] [address] HEAD WO CONon 02-22-2022 CT HEAD WO CON EXAMINATION: CT HEAD WO CON HISTORY: HEADACHE , confusion COMPARISON: No relevant comparison available. TECHNIQUE: Axial CT images were obtained without IV contrast. Dose reduction techniques were achieved by using automated exposure control and/or adjustment of mA and/or kV according to patient size and/or use of iterative reconstruction technique. FINDINGS: BRAIN: No edema, hemorrhage, mass, acute infarction, or inappropriate atrophy. CSF SPACES: No hydrocephalus, subarachnoid hemorrhage, or mass. Appropriate for age. SKULL: No fracture, mass, or other significant visible lesion. SINUSES: No significant mucosal thickening or fluid on the limited views. ORBITS: No appreciable abnormality on the limited views. OTHER: Negative IMPRESSION: 1. Normal examination. Electronically authenticated by: MANUEL FU Date: 2022-02-22 11:55 Normal [facility] CULTURE URINEon 02-22-2022 CULTURE URINE Culture Observations : HEAVY GROWTH OF MIXED GENITAL MARY JANE. NO POTENTIAL PATHOGENS SEEN. Normal [facility] Comment on above: Performed By: #### C MP, LIPID #### [facility] [address] [place] [address] Dr. Cornell Viera ER URINE PROFILEon 2 Bilirubin Ql (U) MODERATE Abnormal NEGATIVE [facility] Comment on above: Performed By: #### E RUYajaira UMICRO #### [facility] [address] [place] [address] Dr. Cornell Viera Clarity (U) CLOUDY Abnormal CLEAR [facility] Comment on above: Performed By: #### E RUR, UMICRO #### [facility] [address] [place] [address] Dr. Cornell Viera Color (U) YELLOW Normal YELLOW [facility] [facility] Comment on above: Performed By: #### E RUR, UMICRO #### [facility] [address] [place] [address] Dr. Cornell Viera ERUAHD A micrscopic examination will be performed if indicated. Normal [facility] Comment on above: Performed By: #### E RUR, UMICRO #### [facility] [address] [place] [address] Dr. Cornell Viera Glucose Ql (U) Negative Normal NEGATIVE [facility] Comment on above: Performed By: #### CHRISTY FERRARIRO #### [facility] [address] [place] [address] Dr. Cornell Viera Hemoglobin Ql (U) SMALL Abnormal NEGATIVE [facility] Comment on above: Performed By: #### CHRISTY FERRARIRO #### [facility] [address] [place] [address] Dr. Cornell Viera Ketones Ql (U) >=80 Abnormal NEGATIVE [facility] Comment on above: Performed By: #### CHRISTY FERRARIRO #### [facility] [address] [place] [address] Dr. Cornell Viera LEUKOCYTES MODERATE Abnormal NEGATIVE [facility] Comment on above: Performed By: #### CHRISTY FERRARIRO #### [facility] [address] [place] [address] Dr. Cornell Viera Nitrite Ql (U) Negative Normal NEGATIVE [facility] Comment on above: Performed By: #### CHRISTY FERRARIRO #### [facility] [address] [place] [address] Dr. Cornell Viera pH (U) 6.0 [pH] Normal 5-9 [facility] Comment on above: Performed By: #### CHRISTY FERRARIRO #### [facility] [address] [place] [address] Dr. Cornell Viera Protein (U) [Mass/Vol] 30 mg/dL Abnormal NEGATIVE/ TRACE [facility] Comment on above: Performed By: #### CHRISTY FERRARIRO #### [facility] [address] [place] [address] Dr. Cornell Viera SPEC GRAVITY >=1.030 Abnormal 1.005-<=1.0 25 [facility] Comment on above: Performed By: #### CHRISTY FERRARIRO #### [facility] [address] [place] [address] Dr. Cornell Viera UR MICRO IND INDICATED Normal [facility] Comment on above: Performed By: #### CHRISTY FERRARIRO #### [facility] [address] [place] [address] Dr. Cornell Viera Urobilinogen Qn (U) 0.2 {Presley'U}/dL Normal 0.2 - 1. 0 [facility] Comment on above: Performed By: #### CHRISTY FERRARIRO #### [facility] [address] [place] [address] Dr. Cornell Viera URon 02-22-2022 , QUAL Negative Normal NEGATIVE [facility] Comment on above: Performed By: #### C MP, LIPID #### [facility] [address] [place] [address] Dr. Cornell Viera PROF 14(COMP METB)on 022 Albumin [Mass/Vol] 4.1 g/dL Normal 3.4-5.0 [facility] Comment on above: Performed By: #### C MP, LIPID #### [facility] [address] [place] [address] Dr. Cornell Viera Albumin/Globulin [Mass ratio] 0.9 {ratio} Normal [facility] Comment on above: Performed By: #### C MP, LIPID #### [facility] [address] [place] [address] Dr. Cornell Viera ALP [Catalytic activity/Vol] 86 U/L Normal 46-116 [facility] Comment on above: Performed By: #### C MP, LIPID #### [facility] [address] [place] [address] Dr. Cornell Viera ALT [Catalytic activity/Vol] 35 U/L Normal 14-59 [facility] Comment on above: Performed By: #### C MP, LIPID #### [facility] [address] [place] [address] Dr. Cornell Viera Anion gap [Moles/Vol] 17.7 mmol/L Normal [facility] Comment on above: Performed By: #### C MP, LIPID #### [facility] [address] [address] [address] Cornell Viera AST [Catalytic activity/Vol] 23 U/L Normal 15-37 [facility] Comment on above: Performed By: #### C MP, LIPID #### [facility] [address] [address] [address] Cornell Viera Bilirubin [Mass/Vol] 0.3 mg/dL Normal 0.2-1.0 [facility] Comment on above: Performed By: #### C MP, LIPID #### [facility] [address] [address] [address] Cornell Viera Calcium [Mass/Vol] 9.3 mg/dL Normal 8.5-10.1 [facility] Comment on above: Performed By: #### C MP, LIPID #### [facility] [address] [place] [address] Dr. Cornell Viera Chloride [Moles/Vol] 107 mmol/L Normal 98-107 [facility] Comment on above: Performed By: #### C MP, LIPID #### [facility] [address] [place] [address] Dr. Cornell Viera CO2 [Moles/Vol] 21.4 mmol/L Normal 21.0-32.0 [facility] Comment on above: Performed By: #### C MP, LIPID #### [facility] [address] [place] [address] Dr. Cornell Viera Creatinine [Mass/Vol] 0.76 mg/dL Normal 0.55-1.02 [facility] Comment on above: Performed By: #### C MP, LIPID #### [facility] [address] [place] [address] Dr. Cornell Viera EGFR-AF MACEDONIAN >60 Normal >=60 [facility] Comment on above: Performed By: #### C MP, LIPID #### [facility] [address] [place] [address] Dr. Cornell Viera EGFR-NON AF MACEDONIAN >60 Normal >=60 [facility] Comment on above: Performed By: #### C MP, LIPID #### [facility] [address] [address] [address] Cornell Viera Globulin (S) [Mass/Vol] 4.4 g/dL Normal [facility] Comment on above: Performed By: #### C MP, LIPID #### [facility] [address] [place] [address] Dr. Cornell Viera Glucose [Mass/Vol] 97 mg/dL Normal 74-106 [facility] Comment on above: Performed By: #### C MP, LIPID #### [facility] [address] [place] [address] Dr. Cornell Viera Potassium [Moles/Vol] 4.1 mmol/L Normal 3.5-5.1 [facility] Comment on above: Performed By: #### C MP, LIPID #### [facility] [address] [place] [address] Dr. Cornell Viera Protein [Mass/Vol] 8.5 g/dL Critically high 6.4-8.2 [facility] Comment on above: Performed By: #### C MP, LIPID #### [facility] [address] [place] [address] Dr. Cornell Viera Sodium [Moles/Vol] 142 mmol/L Normal 136-145 [facility] Comment on above: Performed By: #### C MP, LIPID #### [facility] [address] [place] [address] Dr. Cornell Viera Urea nitrogen [Mass/Vol] 12.0 mg/dL Normal 7.0-18.0 [facility] Comment on above: Performed By: #### C MP, LIPID #### [facility] [address] [place] [address] Dr. Cornell Viera Urea nitrogen/Creatinine [Mass ratio] 15.8 mg/mg Normal [facility] Comment on above: Performed By: #### C MP, LIPID #### [facility] [address] [place] [address] Dr. Cornell Viera URINE MICROSCOPIC ONLYon AMORPHOUS CRYSTALS FEW Normal [facility] Comment on above: Performed By: #### E PATRICIA WALSH #### [facility] [address] [place] [address] Dr. Cornell Viera BACTERIA LARGE Abnormal NONE SEEN [facility] Comment on above: Performed By: #### Mahin WALSH UMICRO #### [facility] [address] [place] [address] Dr. Cornell Viera Bacteria identified Cx Nom (U) INDICATED Normal [facility] Comment on above: Performed By: #### E NICO UMICRO #### [facility] [address] [place] [address] Dr. Cornell Viera CAST NONE SEEN Normal NONE SEEN [facility] Comment on above: Performed By: #### Mahin WALSH UMICRO #### [facility] [address] [place] [address] Dr. Cornell Viera Crystals LM Nom (Urine sed) SEEN Abnormal NONE SEEN [facility] Comment on above: Performed By: #### Mahin WALSH UMICRO #### [facility] [address] [place] [address] Dr. Cornell Viera Epithelial cells LM Ql (Urine sed) MODERATE Abnormal NONE SEEN /RARE [facility] Comment on above: Performed By: #### Mahin WALSH UMICRO #### [facility] [address] [place] [address] Dr. Cornell Viera MUCOUS NONE SEEN Normal NONE SEEN [facility] Comment on above: Performed By: #### Mahin WALSH UMICRO #### [facility] [address] [place] [address] Dr. Cornell Viera RBC 2-5 Abnormal 0-2 [facility] Comment on above: Performed By: #### Mahin WALSH UMICRO #### [facility] [address] [place] [address] Dr. Cornlel Viera WBC 20-50 Abnormal NONE SEEN [facility] Comment on above: Performed By: #### Mahin WALSH UMICRO #### [facility] [address] [place] [address] Dr. Cornell Viera XR CHEST 1 Von 02-22-2022 XR CHEST 1 V EXAMINATION: XR CHES T 1 V HISTORY: pain COMPARISON: No relevant comparison available. FINDINGS: LUNGS: Underexpanded lungs with slight indistinctness of the bronchovascular markings within the lower lobes. VASCULATURE: No increased pulmonary vasculature. PLEURA: No pneumothorax, effusion, or pleural thickening. CARDIAC: No cardiomegaly or cardiac silhouette abnormality. MEDIASTINUM: No visible mass or adenopathy. BONES: No fracture or visible bone lesion. OTHER: Negative. IMPRESSION: 1. Low lung volume examination with suspected trace amount of bibasilar atelectasis versus infiltrates. Electronically authenticated by: MANUEL FU Date: 2022-02-22 11:47 Normal [facility] CBC AUTO DIFFon 12-19-2021 BASO # 0.0 103/ul Normal 0.0-0.1 [facility] Comment on above: Performed By: #### CHRISTY FERRARIRO #### [facility] [address] [place] [address] Dr. Cornell Viera Basophils/100 WBC (Bld) 0.4 % Normal 0.2-2.0 [facility] Comment on above: Performed By: #### CHRISTY FERRARIRO #### [facility] [address] [place] [address] Dr. Cornell Viera EO # 0.1 103/ul Normal 0.0-0.7 [facility] Comment on above: Performed By: #### GUSTABO FERRARIICRO #### [facility] [address] [place] [address] Dr. Cornell Viera Eosinophils/100 WBC (Bld) 1.0 % Normal 0.9-7.0 [facility] Comment on above: Performed By: #### CHRISTY FERRARIRO #### [facility] [address] [place] [address] Dr. Cornell Viera Erythrocyte distribution width (RBC) [Ratio] 14.8 % Normal 11.0-15.0 [facility] Comment on above: Performed By: #### Mahin WALSH UMICRO #### [facility] [address] [place] [address] Dr. Cornell Viera Hematocrit (Bld) [Volume fraction] 40.5 % Normal 36.0-48.0 [facility] Comment on above: Performed By: #### GUSTABO FERRARIICRO #### [facility] [address] [place] [address] Dr. Cornell Viera Hemoglobin (Bld) [Mass/Vol] 12.9 g/dL Normal 12.0-16.0 [facility] Comment on above: Performed By: #### Mahin WALSH UMICRO #### [facility] [address] [place] [address] Dr. Cornell Viera IG # 0.03 10e3/ul Normal 0.00-0.03 [facility] Comment on above: Performed By: #### Mahin WALSH UMICRO #### [facility] [address] [place] [address] Dr. Cornell Viera IG % 0.3 % Normal 0.0-0.5 [facility] Comment on above: Performed By: #### Mahin WALSH UMICRO #### [facility] [address] [place] [address] Dr. Cornell Viera LYMPH # 2.4 103/ul Normal 1.2-3.8 [facility] Comment on above: Performed By: #### GUSTABO FERRARIICRO #### [facility] [address] [place] [address] Dr. Cornell Viera Lymphocytes/100 WBC (Bld) 25.5 % Normal 20.5-60.0 [facility] Comment on above: Performed By: #### GUSTABO FERRARIICRO #### [facility] [address] [place] [address] Dr. Cornell Viera MANUAL DIFF REQ NO Normal [facility] Comment on above: Performed By: #### Mahin WALSH UMICRO #### [facility] [address] [place] [address] Dr. Cornell Viera MCH (RBC) [Entitic mass] 28.5 pg Normal 26.7-34.0 [facility] Comment on above: Performed By: #### Mahin WALSH UMICRO #### [facility] [address] [place] [address] Dr. Cornell Viera MCHC (RBC) [Mass/Vol] 31.9 g/dL Normal 29.9-35.2 [facility] Comment on above: Performed By: #### GUSTABO FERRARIICRO #### [facility] [address] [place] [address] Dr. Cornell Viera MCV (RBC) [Entitic vol] 89.6 fL Normal 81.0-99.0 [facility] Comment on above: Performed By: #### GUSTABO FERRARIICRO #### [facility] [address] [place] [address] Dr. Cornell Viera MONO # 0.6 103/ul Normal 0.3-0.8 [facility] Comment on above: Performed By: #### Mahin WALSH UMICRO #### [facility] [address] [place] [address] Dr. Cornell Viera Monocytes/100 WBC (Bld) 6.1 % Normal 1.7-12.0 [facility] Comment on above: Performed By: #### Mahin WALSH UMICRO #### [facility] [address] [place] [address] Dr. Cornell Viera NEUT # 6.3 103/ul Normal 1.4-6.5 [facility] Comment on above: Performed By: #### Mahin WALSH UMICRO #### [facility] [address] [place] [address] Dr. Cornell Viera Neutrophils/100 WBC (Bld) 66.7 % Normal 43.0-75.0 [facility] Comment on above: Performed By: #### Mahin WALSH UMICRO #### [facility] [address] [place] [address] Dr. Cornell Viera Platelet mean volume (Bld) [Entitic vol] 9.1 fL Critically low 9.5-13.5 [facility] Comment on above: Performed By: #### Mahin WALSH UMICRO #### [facility] [address] [place] [address] Dr. Cornell Viera PLT 344 103/ul Normal 150-450 [facility] Comment on above: Performed By: #### E CHRISTY WALSHRO #### [facility] [address] [address] [address] Cornell Viera RBC 4.52 106/ul Normal 4.20-5.40 [facility] Comment on above: Performed By: #### E CHRISTY WALSHRO #### [facility] [address] [place] [address] Dr. Cornell Viera WBC 9.5 103/ul Normal 4.0-11.0 [facility] Comment on above: Performed By: #### CHRISTY FERRARIRO #### [facility] [address] [place] [address] Dr. Cornell Viera LIPID PROFILEon 12-19-2021 CHOL-HDL RATIO NORM SEE BELOW Normal [facility] Comment on above: Result Comment: 3.3 - 4.4 LOW RISK 4.4 - 7.1 AVERAGE RISK 7.1 - 11.0 MODERATE RISK >11.0 HIGH RISK Performed By: #### C MP, LIPID #### [facility] [address] [place] [address] Dr. Cornell Viera Cholesterol [Mass/Vol] 218 mg/dL Critically high <=200 [facility] Comment on above: Performed By: #### C MP, LIPID #### [facility] [address] [place] [address] Dr. Cornell Viera Cholesterol in HDL [Mass/Vol] 41 mg/dL Normal 40-60 [facility] Comment on above: Performed By: #### C MP, LIPID #### [facility] [address] [place] [address] Dr. Cornell Viera Cholesterol in LDL [Mass/Vol] 131.6 mg/dL Normal [facility] Comment on above: Performed By: #### C MP, LIPID #### [facility] [address] [place] [address] Dr. Cornell Viera Cholesterol.total/Cho lesterol in HDL [Mass ratio] 5.3 {ratio} Normal [facility] Comment on above: Performed By: #### C MP, LIPID #### [facility] [address] [place] [address] Dr. Cornell Viera HDL NORMAL > or = 60 mg/dl - LO W CARDIOVASCULAR RISK <40 mg/dl - HIGH CARDIOVASCULAR RISK Normal [facility] Comment on above: Performed By: #### C MP, LIPID #### [facility] [address] [address] [address] Cornell Viera LDL CALC NORMAL SEE BELOW Normal [facility] Comment on above: Result Comment: <100 mg/dl OPTIMAL 100 - 129 mg/dl NEAR OR ABOVE OPTIMAL 130 - 159 mg/dl BORDERLINE HIGH 160 - 189 mg/dl HIGH >190 mg/dl VERY HIGH Performed By: #### C MP, LIPID #### [facility] [address] [address] [address] Cornell Viera Triglyceride [Mass/Vol] 227 mg/dL Critically high <=150 [facility] Comment on above: Performed By: #### C MP, LIPID #### [facility] [address] [address] [address] Cornell Viera VLDL CALC 45.4 mg/dL Normal [facility] Comment on above: Performed By: #### C MP, LIPID #### [facility] [address] [address] [address] Cornell Viera PROF 14(COMP METB)on 022 Albumin [Mass/Vol] 3.7 g/dL Normal 3.4-5.0 [facility] Comment on above: Performed By: #### C MP, LIPID #### [facility] [address] [address] [address] Cornell Viera Albumin/Globulin [Mass ratio] 0.9 {ratio} Normal [facility] Comment on above: Performed By: #### C MP, LIPID #### [facility] [address] [address] [address] Cornell Viera ALP [Catalytic activity/Vol] 91 U/L Normal 46-116 [facility] Comment on above: Performed By: #### C MP, LIPID #### [facility] [address] [address] [address] Cornell Viera ALT [Catalytic activity/Vol] 49 U/L Normal 14-59 [facility] Comment on above: Performed By: #### C MP, LIPID #### [facility] [address] [address] [address] Cornell Viera Anion gap [Moles/Vol] 16.4 mmol/L Normal [facility] Comment on above: Performed By: #### C MP, LIPID #### [facility] [address] [address] [address] Cornell Viera AST [Catalytic activity/Vol] 14 U/L Critically low 15-37 [facility] Comment on above: Performed By: #### C MP, LIPID #### [facility] [address] [address] [address] Cornell Viera Bilirubin [Mass/Vol] 0.2 mg/dL Normal 0.2-1.3 [facility] Comment on above: Performed By: #### C MP, LIPID #### [facility] [address] [address] [address] Cornell Viera Calcium [Mass/Vol] 8.7 mg/dL Normal 8.5-10.1 [facility] Comment on above: Performed By: #### C MP, LIPID #### [facility] [address] [address] [address] Cornell Viera Chloride [Moles/Vol] 106 mmol/L Normal 98-107 [facility] Comment on above: Performed By: #### C MP, LIPID #### [facility] [address] [address] [address] Cornell Viera CO2 [Moles/Vol] 21.3 mmol/L Critically low 22.0-30.0 [facility] Comment on above: Performed By: #### C MP, LIPID #### [facility] [address] [address] [address] Cornell Viera Creatinine [Mass/Vol] 0.80 mg/dL Normal 0.52-1.04 [facility] Comment on above: Performed By: #### C MP, LIPID #### [facility] [address] [address] [address] Cornell Viera EGFR-AF MACEDONIAN >60 Normal >=60 [facility] Comment on above: Performed By: #### C MP, LIPID #### [facility] [address] [address] [address] Cornell Viera EGFR-NON AF MACEDONIAN >60 Normal >=60 [facility] Comment on above: Performed By: #### C MP, LIPID #### [facility] [address] [address] [address] Cornell Viera Globulin (S) [Mass/Vol] 4.0 g/dL Normal [facility] Comment on above: Performed By: #### C MP, LIPID #### [facility] [address] [address] [address] Cornell Viera Glucose [Mass/Vol] 107 mg/dL Critically high 74-106 [facility] Comment on above: Performed By: #### C MP, LIPID #### [facility] [address] [address] [address] Cornell Viera Potassium [Moles/Vol] 3.7 mmol/L Normal 3.4-5.0 [facility] Comment on above: Performed By: #### C MP, LIPID #### [facility] [address] [address] [address] Cornell Viera Protein [Mass/Vol] 7.7 g/dL Normal 6.1-8.2 [facility] Comment on above: Performed By: #### C MP, LIPID #### [facility] [address] [address] [address] Cornell Viera Sodium [Moles/Vol] 140 mmol/L Normal 137-145 [facility] Comment on above: Performed By: #### C MP, LIPID #### [facility] [address] [address] [address] Cornell Viera Urea nitrogen [Mass/Vol] 10.0 mg/dL Normal 7.0-18.0 [facility] Comment on above: Performed By: #### C MP, LIPID #### [facility] [address] [address] [address] Cornell Viera Urea nitrogen/Creatinine [Mass ratio] 12.5 mg/mg Normal [facility] Comment on above: Performed By: #### C MP, LIPID #### [facility] [address] [address] [address] Cornell Viera COVID Quick Testingon 2021 Result Negative [employer] Other Quick Fluon 11-01-2021 FLUAV Ab CF (S) [Titer] Negative [employer] Other FLUBV Ab CF (S) [Titer] Negative [employer] Other Medication Refillon 03-10-20 21 Medication Refill [id number] 0CD:127 [facility] Consent for COVID Vaccineon 01-08-2021 SARS-CoV-2 (COVID-19) RNA FLORI+probe Ql (Unsp spec) [id number] .00CD:127 [facility] Consent for COVID Vaccineon 12-11-2020 SARS-CoV-2 (COVID-19) RNA FLORI+probe Ql (Unsp spec) [id number]:127 [facility] Consent for Treatmenton 12-02 Consent for Treatment [id number]:127 [facility] Coding Summary.on 12-08-2020 Coding Summary. CODING DATE: 12/07/2020 FINAL [facility] STATUS: PAYOR: Medicare APC DESCRIPTION 1492 [employer] - Level 1B ($11-$20) ADMIT DX: REASON FOR VISIT DX: Z23 Encounter for immunization FINAL DX: PRINCIPAL: Z23 Encounter for immunization SECONDARY: PYMT PROC APC STAT DESCRIPTION DOCTOR NAME DATE NOTE: The code number assigned matches the documented diagnosis and / or procedure in the patient's chart. However, the narrative phrase printed from the coding software may appear abbreviated, or result in slightly different terminology. Coded By: Jodi De La Rosa Date Saved: 12/07/2020 10:14 pm Normal [facility] Coding Summary.on 11-17-2020 Coding Summary. CODING DATE: 11/17/2020 FINAL [facility] STATUS: Home (Routine DC) PAYOR: Medicaid EAPG DESCRIPTION 0397 LEVEL II MICROBIOLOGY TESTS ADMIT DX: REASON FOR VISIT DX: N89.8 Other specified noninflammatory disorders of vagina FINAL DX: PRINCIPAL: N89.8 Other specified noninflammatory disorders of vagina SECONDARY: PYMT PROC EAPG STAT DESCRIPTION DOCTOR NAME DATE NOTE: The code number assigned matches the documented diagnosis and / or procedure in the patient's chart. However, the narrative phrase printed from the coding software may appear abbreviated, or result in slightly different terminology. Coded By: Tayler Celestin CphT Date Saved: 11/17/2020 03:53 pm Normal [facility] NuSwab BV and Latanya, NAAon 11-08-2020 A. vaginae DNA FLORI+probe Ql (Vag fld) Low - 0 Invalid Interpretation Code [facility] Comment on above: Performed By: #### 1 [id number] #### [facility] [address] [place] [address] Bacterial vaginosis associated bacterium 2 DNA FLORI+probe Ql (Vag fld) Low - 0 Invalid Interpretation Code [facility] Comment on above: Performed By: #### 1 [id number] #### [facility] [address] [place] [address] C. albicans DNA FLORI+probe Ql (Vag fld) Negative Invalid Interpretation Code Negative [facility] Comment on above: Result Comment: This test was developed and its performance characteristics determined by [facility]. It has not been cleared or approved by the Food and Drug Administration. Performed By: #### 1 [id number] #### [facility] [address] [place] [address] C. glabrata DNA FLORI+probe Ql (Vag fld) Negative Invalid Interpretation Code Negative [facility] Comment on above: Result Comment: This test was developed and its performance characteristics determined by [facility]. It has not been cleared or approved by the Food and Drug Administration. Performed at: [address] [id number] MD Chris Victor Performed By: #### 1 [id number] #### [facility] [address] [place] [address] Megasphaera sp type 1 DNA FLORI+probe Ql (Vag fld) Low - 0 Invalid Interpretation Code [facility] Comment on above: Result Comment: Calc ulate total score by adding the 3 individual bacterial vaginosis (BV) marker scores together. Total score is interpreted as follows: Total score 0-1: Indicates the absence of BV. Total score 2: Indeterminate for BV. Additional clinical data should be evaluated to establish a diagnosis. Total score 3-6: Indicates the presence of BV. This test was developed and its performance characteristics determined by [employer]. It has not been cleared or approved by the Food and Drug Administration. Performed By: #### 1 [id number] #### [facility] [address] [place] [address] Ambulatory Clinical Summaryo n 11-04-2020 Ambulatory Clinical Summary {[id number]}CD:[id number] Normal [facility] Gynecology Office/Clinic Not stephy 11-04-2020 Gynecology Office/Clinic Note Chief Complaint vaginal discharge, dysuria Obstetric History History (0,0,0,0) No previous pregnancies history have been recorded HPI Staff Pt is here today c/o vaginal itching and dysuria for the last 3 weeks. Has burning after urinating, itching, has brownish color discharge. No abd pain or cramping, does have lumbar back pain, urgency and frequency, fever, chills and sweats. Has not tried taking anything otc for this. History of Present Illness 34 y/o here for vaginal itching and dysuria. UA neg in office today. It cowan and itches when she uses restroom for last 3 weeks. She has brown vaginal bleeding. She notices vaginal odor. It was on and off, would have to wear a pad during the day to go to work. No cramping or pelvic pain. She has no periods with the continuous control pills. No sores. Not sexually active. Spoke with pt's mother who said they have been going through a tough time and wondered if the spotting could be r/t stress. She also states d/t pt's OCD and dislike of periods, she constantly wears pads. She does change them appropriately. Review of Systems ROS - Clinical Support GI Symptoms: None Cardiopulmonary Symptoms: None General Symptoms: None Genitourinary Symptoms: Dysuria, Vaginal discharge, Vulvar burning Pain Symptoms: No Constitutional: No fever, No fatigue. Genitourinary:No urinary incontinence,No urinary frequency,No urinary urgency,Yes painful urination. Gynecology:Yes abnormal vaginal discharge,Yes vaginal itching/burning,Yes vaginal odor, Yes abnormal bleeding,No pelvic pain Physical Exam Vitals & Measurements T: 37 ?C (Temporal Artery) BP: 126/82 HT: 160 cm HT: 160.0 cm WT: 99.1 kg WT: 99.1 kg BMI: 38.71 General Exam: Constitutional: alert, no acute distress, well hydrated, well developed, well nourished. Skin: normal color, no rashes, no lesions, no unusual bruising. Head: atraumatic, normocephalic. Eyes: EOM intact, no nystagmus, no icterus. Ears: no external deformities, gross hearing intact. Respiratory: no respiratory distress. Neurol: normal, motor intact, station & gait normal. Psych: oriented to all spheres, affect and mood appropriate, normal interaction, good eye contact. Pelvic Exam: Vulva: normal appearance, normal hair distribution, no lesions or masses. Urethra: normal, no masses, non-tender, no discharge. Bladder: normal, non-tender, non-distended. Vagina: normal, rugated, small amount of white thick discharge, no lesions, no masses, adequate pelvic support. No bleeding noted. Cervix: normal, midposition, no motion tenderness, no lesions. Uterus: smooth, mobile, non-tender, adequate support. Assessment/Plan 1. Vaginal odor (N89.8: Other specified noninflammatory disorders of vagina) Most likely BV d/t odor but will send out nuswab and call with results. Ordered: NuSwab BV and Latanya, FLORI Office Visit Level 3 Est 60094 2. Dysuria (R30.0: Dysuria) UA negative in office today. Pt encouraged to consume more water. Ordered: Office Visit Level 3 Est 33226 Urnls Dip Stick Non-Auto w/o Micrscpy POC 59471 3. Oral contraceptive use (Z30.41: Encounter for surveillance of contraceptive pills) Minor bleeding can occur with continuous pill use and can occur due to stress. Continue to monitor. Ordered: Office Visit Level 3 Est 64023 Follow-up No qualifying data available Problem List/Past Medical History Ongoing Developmental disability Oral contraceptive use Historical No qualifying data Medications amitriptyline 25 mg Tab calcium (as carbonate)-vitamin D 600 mg-800 intl units oral tablet, 1 tab(s), Oral, Daily, 3 refills FLUoxetine 20 mg Cap Jolessa oral tablet, 1 tab(s), Oral, Daily, 5 refills quetiapine 25 mg Tab, 25 mg= 1 tab(s), Oral, Daily topiramate 100 mg Tab Allergies penicillin (critical) Social History Alcohol - Denies Alcohol Use, 04/14/2020 Substance Abuse - Denies Substance Abuse, 04/14/2020 Tobacco - Denies Tobacco Use, 04/14/2020 Never (less than 100 in lifetime) Tobacco Use:. Never Smokeless Tobacco Use:. Household tobacco concerns: No., 11/04/2020 Family History Diabetes mellitus type 1: Father and Aunt. Lab Results Ambulatory Point of Care Results Bilirubin Urine Dipstick: Negative (11/04/20 15:21:00) Blood Urine Dipstick: Negative (11/04/20 15:21:00) Glucose Urine Dipstick: Negative (11/04/20 15:21:00) Ketones Urine Dipstick: Negative (11/04/20 15:21:00) Leukocytes Urine Dipstick: Negative (11/04/20 15:21:00) Nitrite Urine Dipstick: Negative (11/04/20 15:21:00) Protein Urine Dipstick: Negative (11/04/20 15:21:00) Specific [place] Urine Dipstick: 1.015 (11/04/20 15:21:00) Urine Appearance Urine Dipstick: Turbid (11/04/20 15:21:00) Urine Color Urine Dipstick: Dark yellow (11/04/20 15:21:00) Urobilinogen Urine Dipstick: Normal 0.2-1 EU/dl (11/04/20 15:21:00) pH Urine Dipstick: 6.5 (11/04/20 15:21:00) Normal [facility] Comment on above: Result Comment: Elec tronically Signed By: GREGORIO TAPIA, Jessa\.roman\Date and Time Signed: 11/04/20 16:01 EST Vital Signs Date Time Vital Sign Value Performing Clinician Facility 05-20-2025 15:08-0400 Diastolic blood pressure 90 mm[Hg] [facility] Staff Accountant [facility] 05-20-2025 15:08-0400 Systolic blood pressure 130 mm[Hg] [facility] Staff Accountant [facility] 05-20-2025 14:43-0400 [facility] 05-20-2025 14:43-0400 Body mass index (BMI) [Ratio] 44.02 kg/m2 [facility] Staff Accountant [facility] 05-20-2025 14:43-0400 Body weight 112.67 kg [facility] Staff Accountant [facility] 03-04-2025 14:38-0400 Body height 160 cm Renée Krotzer LEAD SLOT TECHNICIAN[employer] Work Phone: [facility] 03-04-2025 14:38-0400 Body mass index (BMI) [Ratio] 43.94 kg/m2 Renée Krotzer LEAD SLOT TECHNICIAN[employer] Work Phone: [facility] 03-04-2025 14:38-0400 Body weight 112.49 kg Renée Krotzer LEAD SLOT TECHNICIAN[employer] Work Phone: [facility] 03-04-2025 14:38-0400 Diastolic blood pressure 78 mm[Hg] Renée Krotzer LEAD SLOT TECHNICIAN[employer] Work Phone: [facility] 03-04-2025 14:38-0400 Systolic blood pressure 120 mm[Hg] Renée Krotzer LEAD SLOT TECHNICIAN[employer] Work Phone: [facility] 12-17-2024 14:29-0400 Body height 160 cm Reneé Krotzer LEAD SLOT TECHNICIAN[employer] Work Phone: [facility] 12-17-2024 14:29-0400 Body mass index (BMI) [Ratio] 44.33 kg/m2 Renée Krotzer LEAD SLOT TECHNICIAN[employer] Work Phone: [facility] 12-17-2024 14:29-0400 Body weight 113.49 kg Renée Krotzer LEAD SLOT TECHNICIAN[employer] Work Phone: [facility] 12-17-2024 14:29-0400 Diastolic blood pressure 98 mm[Hg] Renée Krotzer LEAD SLOT TECHNICIAN[employer] Work Phone: [facility] 12-17-2024 14:29-0400 Systolic blood pressure 128 mm[Hg] Renée Krotzer LEAD SLOT TECHNICIAN[employer] Work Phone: [facility] 10-20-2024 15:01-0500 Body height 165.1 cm Delicia Patmor SNOWBOARD DESIGNER Work Phone: [facility] 10-20-2024 15:01-0500 Body mass index (BMI) [Ratio] 41.44 kg/m2 Delicia Gillmor SNOWBOARD DESIGNER Work Phone: [facility] 10-20-2024 15:01-0500 Body weight 112.95 kg Delicia Gillmor SNOWBOARD DESIGNER Work Phone: [facility] 10-20-2024 15:01-0500 Diastolic blood pressure 82 mm[Hg] Delicia Patmor SNOWBOARD DESIGNER Work Phone: [facility] 10-20-2024 15:01-0500 Heart rate 97 /min Delicia Patmor SNOWBOARD DESIGNER Work Phone: [facility] 10-20-2024 15:01-0500 SaO2% (BldA) [Mass fraction] 97 % Delicia Gillmor SNOWBOARD DESIGNER Work Phone: [facility] 10-20-2024 15:01-0500 Systolic blood pressure 138 mm[Hg] Delicia Gillmor SNOWBOARD DESIGNER Work Phone: [facility] 10-01-2024 12:43-0500 Body height 160 cm [facility] Staff Accountant [facility] 10-01-2024 12:43-0500 Body mass index (BMI) [Ratio] 44.46 kg/m2 [facility] 10-01-2024 12:43-0500 Body weight 113.85 kg [facility] 10-01-2024 12:43-0500 Diastolic blood pressure 80 mm[Hg] [facility] 10-01-2024 12:43-0500 Systolic blood pressure 106 mm[Hg] [facility] 05-17-2023 11:10-0400 Body height 167.6 cm Maylin Downey MD Work Phone: [facility] 05-17-2023 11:10-0400 Body weight 111.81 kg Maylin Downey MD Work Phone: [facility] 05-17-2023 11:10-0400 Diastolic blood pressure 84 mm[Hg] Maylin Downey MD Work Phone: [facility] 05-17-2023 11:10-0400 Heart rate 93 /min Maylin Downey MD Work Phone: [facility] 05-17-2023 11:10-0400 Systolic blood pressure 129 mm[Hg] Maylin Downey MD Work Phone: [facility] 08-01-2022 09:51-0500 Body height 167.6 cm Maylin Downey MD Work Phone: [facility] 08-01-2022 09:51-0500 Body temperature 98.71 [degF] Maylin Downey MD Work Phone: [facility] 08-01-2022 09:51-0500 Body weight 102.06 kg Maylin Downey MD Work Phone: [facility] 08-01-2022 09:51-0500 Diastolic blood pressure 96 mm[Hg] Maylin Downey MD Work Phone: [facility] 08-01-2022 09:51-0500 Heart rate 88 /min Maylin Downey MD Work Phone: [facility] 08-01-2022 09:51-0500 SaO2% (BldA) [Mass fraction] 98 % Maylin Downey MD Work Phone: [facility] 08-01-2022 09:51-0500 Systolic blood pressure 140 mm[Hg] Maylin Downey MD Work Phone: [facility] 07-09-2022 07:26-0500 Body temperature 96.7 [degF] DO Deedee Rumschlag Work Phone: [facility] 07-09-2022 07:26-0500 Diastolic blood pressure 86 mm[Hg] DO Deedee Rumschlag Work Phone: [facility] 07-09-2022 07:26-0500 Heart rate 90 /min DO Deedee Rumschlag Work Phone: [facility] 07-09-2022 07:26-0500 Respiratory rate 16 /min DO Deedee Rumschlag Work Phone: [facility] 07-09-2022 07:26-0500 SaO2% (BldA) [Mass fraction] 95 % DO Deedee Rumschlag Work Phone: [facility] 07-09-2022 07:26-0500 Systolic blood pressure 139 mm[Hg] DO Deedee Rumschlag Work Phone: [facility] 07-07-2022 14:24-0400 Body height 160.02 cm DO Deedee Rumschlag Work Phone: [facility] 07-06-2022 19:58-0400 Body weight 101.6 kg DO Deedee Rumschlag Work Phone: [facility] 06-28-2022 15:10-0400 Body height 167.[address] 06-28-2022 15:10-0400 Body weight 102.[address] 06-22-2022 14:57-0400 Diastolic blood pressure 72 mm[Hg] Inocencia Johnson MD Work Phone: [facility] 06-22-2022 14:57-0400 Heart rate 88 /min Inocencia Johnson MD Work Phone: [facility] 06-22-2022 14:57-0400 SaO2% (BldA) [Mass fraction] 100 % Inocencia Jhonson MD Work Phone: [facility] 06-22-2022 14:57-0400 Systolic blood pressure 113 mm[Hg] Inocencia Johnson MD Work Phone: [facility] 05-11-2022 11:16-0400 Diastolic blood pressure 92 mm[Hg] [facility] 05-11-2022 11:16-0400 Heart rate 84 /min [facility] 05-11-2022 11:16-0400 Systolic blood pressure 128 mm[Hg] [facility] 05-11-2022 11:05-0400 Body height 160 cm [facility] 05-11-2022 11:05-0400 Body weight 102.06 kg [facility] 04-20-2022 09:45-0400 Diastolic blood pressure 90 mm[Hg] Inocencia Johnson MD Work Phone: [facility] 04-20-2022 09:45-0400 Heart rate 86 /min Inocencia Johnson MD Work Phone: [facility] 04-20-2022 09:45-0400 SaO2% (BldA) [Mass fraction] 100 % Inocencia Johnson MD Work Phone: [facility] 04-20-2022 09:45-0400 Systolic blood pressure 136 mm[Hg] Inocencia Johnson MD Work Phone: [facility] 03-27-2022 09:10-0400 Diastolic blood pressure 57 mm[Hg] MD Wilfredo Ortiz Work Phone: [facility] 03-27-2022 09:10-0400 Heart rate 85 /min MD Wilfredo Ortiz Work Phone: [facility] 03-27-2022 09:10-0400 Respiratory rate 20 /min MD Wilfredo Ortiz Work Phone: [facility] 03-27-2022 09:10-0400 SaO2% (BldA) [Mass fraction] 99 % MD Wilfredo Ortiz Work Phone: [facility] 03-27-2022 09:10-0400 Systolic blood pressure 120 mm[Hg] MD Wilfredo Ortiz Work Phone: [facility] 03-27-2022 07:30-0400 Body height 160.02 cm MD Wilfredo Ortiz Work Phone: [facility] 03-27-2022 07:30-0400 Body temperature 99.3 [degF] MD Wilfreod Ortiz Work Phone: [facility] 03-27-2022 07:30-0400 Body weight 102.51 kg MD Wilfredo Ortiz Work Phone: [facility] 02-22-2022 16:00-0400 Body height 160.02 cm Wilfredo Ortiz Other [employer] [facility] [employer] Other 02-22-2022 16:00-0400 Body mass index (BMI) [Ratio] 40.21 kg/m2 Wilfredo Ortiz Other [employer] [facility] [employer] Other 02-22-2022 16:00-0400 Body weight 102.97 kg Wilfredo Ortiz Other [employer] Other 11-01-2021 10:40-0500 Body height 160.02 cm Jessa Gordillo Other [employer] Other 11-01-2021 10:40-0500 Body mass index (BMI) [Ratio] 40.21 kg/m2 Jessa Gordillo Other [employer] Other 11-01-2021 10:40-0500 Body temperature 97.3 [degF] Jessa Gordillo Other [employer] Other 11-01-2021 10:40-0500 Body weight 102.97 kg Jessa Gordillo Other [employer] Other 11-01-2021 10:40-0500 SaO2% (BldA) [Mass fraction] 98 % Jessa Gordillo Other [employer] Other Encounters Encounter Date Encounter Type Care Provider Facility Start: 06-04-2025 End: 06-04-2025 Office outpatient visit 25 minutes Gloria Logan SNOWBOARD DESIGNER Work Phone: [facility] Comment on above: Primary osteoarthrit is of right knee (Primary Dx); Chronic pain of right knee Start: 06-04-2025 End: 06-04-2025 Bamboo flowsheet Gloria Logan SNOWBOARD DESIGNER Work Phone: [facility] Start: 06-04-2025 End: 06-04-2025 Bamboo flowsheet Gloria Logan SNOWBOARD DESIGNER Work Phone: [facility] Start: 06-04-2025 End: 06-04-2025 ambulatory GLORIA LOGAN Not Available Start: 05-28-2025 End: 05-28-2025 ambulatory Whitley Kelbley HEAD OF SALES [employer]ION [facility] Comment on above: Acute pain of right knee (Primary Dx); Radicular pain of right lower extremity Start: 05-28-2025 End: 05-28-2025 Bamboo flowsheet Whitley Kelbley HEAD OF SALES [employer] [facility] Start: 05-28-2025 End: 05-28-2025 Bamboo flowsheet Whitley Kelbley HEAD OF SALES PROMOTION [facility] Start: 05-25-2025 End: 05-25-2025 ambulatory Whitley Kelbley HEAD OF SALES [employer] [facility] Comment on above: Acute pain of right knee (Primary Dx) Start: 05-20-2025 End: 05-20-2025 ambulatory [facility] Staff Accountant [facility] Comment on above: Encounter for survei llance of injectable contraceptive (Primary Dx) Start: 05-18-2025 End: 05-19-2025 ambulatory Whitley Alonzo HEAD OF SALES [employer] [facility] Comment on above: Acute pain of right knee (Primary Dx); Radicular pain of right lower extremity Start: 05-18-2025 End: 05-18-2025 Bamboo flowsheet Whitley Saleemy HEAD OF SALES [employer] [facility] Start: 05-18-2025 End: 05-18-2025 Bamboo flowsheet Whitley Saleemy HEAD OF SALES [employer] [facility] Start: 05-13-2025 End: 05-14-2025 ambulatory Lisa Pepe PT [facility] Comment on above: Acute pain of right knee (Primary Dx); Radicular pain of right lower extremity Start: 05-13-2025 End: 05-13-2025 Bamboo flowsheet Lisa Pepe PT [facility] Start: 05-13-2025 End: 05-13-2025 Bamboo flowsheet Lisa Pepe PT [facility] Start: 05-11-2025 End: 05-11-2025 ambulatory Mary Alejandroink HEAD OF SALES [employer] [facility] Comment on above: Acute pain of right knee (Primary Dx); Radicular pain of right lower extremity Start: 05-11-2025 End: 05-11-2025 Bamboo flowsheet Mary Brink HEAD OF SALES [employer] [facility] Start: 05-11-2025 End: 05-11-2025 Bamboo flowsheet Mary Brink HEAD OF SALES [employer] [facility] Start: 05-07-2025 End: 05-07-2025 ambulatory Whitley Saleemy HEAD OF SALES [employer] [facility] Comment on above: Acute pain of right knee (Primary Dx); Radicular pain of right lower extremity Start: 05-07-2025 End: 05-07-2025 Bamboo flowsheet Whitley Saleemy HEAD OF SALES [employer] [facility] Start: 05-07-2025 End: 05-07-2025 Bamboo flowsheet Whitley Alonzo HEAD OF SALES [employer] [facility] Start: 05-05-2025 End: 05-05-2025 ambulatory Mary Bowling HEAD OF SALES [employer] [facility] Comment on above: Acute pain of right knee (Primary Dx); Radicular pain of right lower extremity Start: 05-05-2025 End: 05-05-2025 Bamboo flowsheet Mary Bowling HEAD OF SALES [employer] [facility] Start: 05-05-2025 End: 05-05-2025 Bamboo flowsheet Mary Bowling HEAD OF SALES [employer] [facility] Start: 04-29-2025 End: 04-29-2025 ambulatory Mary Bowling HEAD OF SALES [employer] [facility] Comment on above: Acute pain of right knee (Primary Dx); Radicular pain of right lower extremity Start: 04-29-2025 End: 04-29-2025 Bamboo flowsheet Mary Bowling HEAD OF SALES [employer] [facility] Start: 04-29-2025 End: 04-29-2025 Bamboo flowsheet Mary Bowling HEAD OF SALES [employer] [facility] Start: 04-27-2025 End: 04-28-2025 ambulatory Lisakaylie Pepe PT [facility] Comment on above: Acute pain of right knee; Radicular pain of right lower extremity Start: 04-27-2025 End: 04-27-2025 Bamboo flowsheet Lisa Pepe PT [facility] Start: 04-27-2025 End: 04-27-2025 Bamboo flowsheet Lisa Pepe PT [facility] Start: 04-06-2025 End: 04-06-2025 Bamboo flowsheet Gloria Logan SNOWBOARD DESIGNER Work Phone: [facility] Start: 04-06-2025 End: 04-06-2025 Bamboo flowsheet Gloria Logan SNOWBOARD DESIGNER Work Phone: [facility] Start: 04-06-2025 End: 04-06-2025 Office outpatient visit 15 minutes Gloria Logan SNOWBOARD DESIGNER Work Phone: [facility] Comment on above: Radicular pain of ri ght lower extremity (Primary Dx); Acute pain of right knee Start: 04-06-2025 End: 04-06-2025 ambulatory GLORIA LOGAN Not Available Start: 03-04-2025 End: 03-04-2025 Patient encounter procedure Renée Pedraza LEAD SLOT TECHNICIAN[employer] Work Phone: [facility] Comment on above: Encounter for manage ment and injection of depo-Provera (Primary Dx) Start: 01-13-2025 ambulatory Pb Marques Facility:[facility] Start: 12-17-2024 End: 12-17-2024 Patient encounter procedure Renée Pedraza LEAD SLOT TECHNICIAN[employer] Work Phone: [facility] Comment on above: Encounter for manage ment and injection of depo-Provera (Primary Dx) Start: 10-20-2024 End: 10-20-2024 Office outpatient visit 25 minutes Delicia Sky SNOWBOARD DESIGNER Work Phone: [facility] Comment on above: Migraine without aur a and without status migrainosus, not intractable (CMS/HCC) (Primary Dx); Obstructive sleep apnea; Sleep-wake cycle disorder; Memory change Start: 10-20-2024 End: 10-20-2024 ambulatory DELICIA SKY Not Available Start: 10-20-2024 End: 10-20-2024 Bamboo flowsheet Delicia Sky SNOWBOARD DESIGNER Work Phone: [facility] Start: 10-20-2024 End: 10-20-2024 Bamboo flowsheet Delicia Sky SNOWBOARD DESIGNER Work Phone: [facility] Start: 10-01-2024 End: 10-01-2024 Office outpatient visit 15 minutes [facility] Ob Staff Accountant [facility] Comment on above: Encounter for survei llance of injectable contraceptive (Primary Dx); General counselling and advice on contraception Start: 07-25-2024 End: 07-25-2024 Office outpatient new 45 minutes Radha Vasquez SNOWBOARD DESIGNER Work Phone: [facility] Comment on above: Left ankle strain, i nitial encounter (Primary Dx); Injury of left ankle, initial encounter Start: 07-25-2024 End: 07-25-2024 ambulatory RADHA VASQUEZ Not Available Start: 07-02-2024 End: 07-02-2024 ambulatory [facility] Ob Staff Accountant [facility] Comment on above: Encounter for survei llance of injectable contraceptive (Primary Dx) Start: 04-15-2024 End: 04-15-2024 ambulatory [facility] Ob Staff Accountant [facility] Comment on above: Encounter for survei llance of injectable contraceptive (Primary Dx) Start: 04-15-2024 End: 04-28-2024 Telephone encounter Jennifer Willis LPN [facility] [address] Comment on above: AG- fioricvelia PA kori ed Start: 01-23-2024 End: 01-23-2024 ambulatory [facility] Ob Staff Accountant [facility] Comment on above: Encounter for survei llance of injectable contraceptive (Primary Dx) Start: 10-25-2023 End: 10-25-2023 ambulatory [facility] Ob Staff Accountant [facility] Comment on above: Encounter for survei llance of injectable contraceptive (Primary Dx) Start: 05-17-2023 End: 05-17-2023 ambulatory NOE RICO Facility:[facility] Start: 05-17-2023 End: 05-17-2023 Patient encounter procedure Maylin Downey MD Work Phone: Colorectal Surgery Comment on above: Anal fissure (Primar y Dx); Follow-up examination after colorectal surgery Start: 12-05-2022 End: 12-06-[address] DOCTOR PALMER Facility: Start: 10-26-2022 End: 10-26-2022 ambulatory NOE RICO Facility:[facility] Start: 10-26-2022 End: 10-26-2022 Patient encounter procedure Maylin Downey MD Work Phone: Colorectal Surgery Comment on above: Anal fissure (Primar y Dx) Start: 09-25-2022 End: 09-26-2022 ambulatory DEEDEE WHITING Facility: Start: 08-01-2022 End: 08-01-2022 ambulatory NOE RICO Facility:[facility] Start: 08-01-2022 End: 08-01-2022 Patient encounter procedure Maylin Downey MD Work Phone: Colorectal Surgery Comment on above: Follow-up examinatio n after colorectal surgery (Primary Dx); Anal fissure Start: 07-06-2022 End: 07-09-2022 Evaluation and management of inpatient DO Deedee Whiting Work Phone: [facility] [facility] Start: 07-06-2022 End: 07-06-[address] FRANSICO SCHMID . Facility: Start: 07-03-2022 End: 07-03-2022 ambulatory MAYLIN DOWNEY Facility:[facility] Start: 06-28-2022 End: 06-28-2022 Admission to establishment [address] Start: 06-28-2022 End: 06-28-2022 ambulatory NOE RICO Pre Anesthesia Comment on above: Pre-op evaluation (P rimary Dx); Hyperlipidemia, unspecified hyperlipidemia type; Other sleep apnea; Intellectual disability; Anxiety; Obesity, Class II, BMI 35-39.9 Start: 06-28-2022 End: 06-28-2022 Preprocedural examination done Pac 2 Pre Anesthesia Start: 06-22-2022 End: 06-22-2022 ambulatory NOE RICO Facility:[facility] Start: 06-22-2022 End: 06-22-2022 Patient encounter procedure Inocencia Johnson MD Work Phone: Colorectal Surgery Comment on above: Follow-up examinatio n after colorectal surgery (Primary Dx) Start: 06-07-2022 End: 06-07-2022 ambulatory SHERRIE VALLE . Facility: Start: 05-16-2022 End: 05-16-2022 ambulatory INOCENCIA JOHNSON Facility:[facility] Start: 05-11-2022 End: 05-11-2022 Admission to establishment [facility] Start: 05-11-2022 End: 05-11-2022 ambulatory [facility] Pre Anesthesia Comment on above: Preop examination (P rimary Dx); Anal fissure; Hypokalemia; Obesity, Class II, BMI 35-39.9; Hyperlipidemia, unspecified hyperlipidemia type; Obstructive sleep apnea syndrome; Intellectual disability; Acute cystitis without hematuria Start: 05-11-2022 End: 05-11-2022 Preprocedural examination done [facility] Pre Anest[facility] Start: 04-20-2022 End: 04-20-2022 Patient encounter procedure Inocencia Johnson MD Work Phone: Colorectal Surgery Comment on above: Acute anal fissure ( Primary Dx) Start: 04-06-2022 End: 04-06-2022 ambulatory Wilfredo Ortiz Other [employer] Other Start: 04-06-2022 Telephone encounter Wilfredo Mathews [facility] Start: 03-27-2022 End: 03-27-2022 ambulatory Wilfredo Ortiz Other [employer] Other Start: 03-27-2022 Telephone encounter Wilfredo Mathews [facility] Start: 03-27-2022 End: 03-27-2022 Admission to same day surgery center MD Wilfredo Ortiz Work Phone: [facility] Start: 03-07-2022 End: 03-07-[address] FRANSICO SCHMID . Facility: Start: 03-03-2022 End: 03-03-2022 Patient encounter procedure MD Wilfredo Ortiz Work Phone: [facility] Start: 02-22-2022 [facility] visit new patient Wilfredo GONZALEZ Gastroenterology Start: 02-22-2022 End: 02-22-2022 ambulatory [facility] [employer] Other Start: 12-21-2021 Encounter for genera l adult medical examination without abnormal findings DR JAEGER [facility] Start: 12-19-2021 End: 12-20-[address] DOCTOR PALMER Facility:[facility] Start: 12-19-2021 End: 12-20-2021 Encounter for general adult medical examination without abnormal findings DR DOCTOR PALMER Facility:[facility] Start: 11-01-2021 End: 11-01-2021 ambulatory Jessa Rand Other [employer] Other Start: 11-01-2021 Office outpatient vi sit 15 minutes Jessa Gordillo [facility] [place] Procedures Date Procedure Procedure Detail Performing Clinician Start: 06-04-2025 Arthrocentesis aspir &/inj major jt/bursa w/o us Gloria Logan SNOWBOARD DESIGNER Work Phone: Start: 04-06-2025 Radiologic examinati on knee 1/2 views Gloria Logan SNOWBOARD DESIGNER Work Phone: Start: 07-25-2024 ED SPLINTING / CASTI NG / STRAPPING Radha Rothman LPN Start: 07-25-2024 Radex ankle complete minimum 3 views Radha Vasquez SNOWBOARD DESIGNER Work Phone: Start: 05-15-2023 Adult depression scr eening assessment [facility] Staff Accountant Start: 05-15-2023 Microscopic observat ion [Identifier] in Cervix by Cyto stain [facility] Staff Accountant Start: 03-27-2022 Diagnostic endoscopi c examination on colon MD Wilfredo Ortiz Work Phone: SARS Antigen (LFIA) MD Mcfarland on Diana Work Phone: Plan of Treatment Date Care Activity Detail Author Start: 05-15-2028 Screening for malign ant neoplasm of cervix [facility] Start: 05-20-2026 Adult BMI Screening Adult BMI Screen ing [facility] Start: 05-20-2026 Tobacco Screening Tobacco Screening [facility] Start: 05-15-2026 Screening for malign ant neoplasm of cervix Pap Smear [facility] Start: 03-04-2026 Adult BMI Screening Adult BMI Screen ing [facility] Start: 03-04-2026 Tobacco Screening Tobacco Screening [facility] Start: 12-28-2025 DTaP,Tdap and Td Vaccines (7 - Td or Tdap) DTaP,Tdap and Td Vaccines (7 - Td or Tdap) [facility] Start: 12-17-2025 Adult BMI Screening Adult BMI Screen ing [facility] Start: 12-17-2025 Tobacco Screening Tobacco Screening [facility] Start: 10-01-2025 Adult BMI Screening Adult BMI Screen ing [facility] Start: 10-01-2025 Tobacco Screening Tobacco Screening [facility] Start: 08-05-2025 End: 08-05-2025 ambulatory 08/05/2025 3:00 PM EST Nurse Injection [facility] [address] [place] [address] [facility] Start: 06-04-2025 End: 06-04-2025 Patient encounter procedure [facility] Comment on above: Arrived Start: 06-01-2025 End: 06-01-2025 Patient encounter procedure 06/01/2025 1:00 PM EDT Office Visit [facility] [address] [facility] [place] [address] Gloria Logan, SNOWBOARD DESIGNER [address] [place] [address] [facility] Start: 05-28-2025 End: 05-28-2025 ambulatory 05/28/2025 3:30 PM EDT Treatment [facility] [address] [facility] [address] [place] [address] Whitley Alonzo PTA Arrived [facility] Comment on above: Arrived Start: 05-27-2025 End: 05-27-2025 ambulatory 05/27/2025 3:30 PM EDT Treatment [facility] [address] [facility] [address] [place] [address] Lisa Pepe PT [facility] Start: 05-25-2025 End: 05-25-2025 ambulatory 05/25/2025 3:30 PM EDT Treatment [facility] [address] [place] [address] [place] [address] Whitley Alonzo, COURTNEY [facility] Start: 05-20-2025 End: 05-20-2025 ambulatory [facility] Start: 05-18-2025 End: 05-18-2025 ambulatory [facility] Comment on above: Arrived Start: 05-13-2025 End: 05-13-2025 ambulatory [facility] Comment on above: Arrived Start: 05-11-2025 End: 05-11-2025 ambulatory [facility] Comment on above: Arrived Start: 05-07-2025 End: 05-07-2025 ambulatory [facility] Comment on above: Arrived Start: 05-05-2025 End: 05-05-2025 ambulatory [facility] Comment on above: Acute pain of right knee (Primary Dx); Radicular pain of right lower extremity Start: 05-04-2025 COVID-19 Vaccine ( season) COVID-19 Vaccine ( season) [facility] Start: 05-04-2025 Influenza vaccination [facility] Start: 04-29-2025 End: 04-29-2025 ambulatory [facility] Comment on above: Acute pain of right knee (Primary Dx); Radicular pain of right lower extremity Start: 04-27-2025 End: 04-27-2025 ambulatory 04/27/2025 5:00 PM EDT Evaluation [facility] [address] [facility] [address] [place] [address] Lisa Pepe PT Acute pain of right knee; Radicular pain of right lower extremity [facility] Comment on above: Acute pain of right knee; Radicular pain of right lower extremity Start: 04-20-2025 End: 04-20-2025 Patient encounter procedure 04/20/2025 3:00 PM EDT Office Visit [facility] [address] [place], [place] [address], [place] [address] Delicia Sky NP [address] [place] [facility] Start: 04-06-2025 End: 04-06-2025 Patient encounter procedure 04/06/2025 1:45 PM EDT Office Visit [facility] [address] [facility] [place] [id number] Gloria Logan, MARYANNE [address] [place], [place] [phone] Arrived [facility] Comment on above: Arrived Start: 03-04-2025 End: 03-04-2025 ambulatory 03/04/2025 3:00 PM EDT Nurse Injection [facility] [address] [place] [address] [facility] Start: 12-17-2024 End: 12-17-2024 ambulatory 12/17/2024 2:30 PM EDT Nurse Injection [facility] [address] [place] [address] [facility] Start: 10-20-2024 End: 10-20-2024 Patient encounter procedure [facility] Comment on above: Arrived Start: 09-17-2024 End: 09-17-2024 Patient encounter procedure 09/17/2024 2:30 PM EST Office Visit [facility] [address] [place] [address] [facility] Start: 07-02-2024 End: 07-02-2024 Patient encounter procedure 07/02/2024 2:30 PM EDT Office Visit [facility] [address] [place] [address] [facility] Start: 05-15-2024 Adult BMI Screening Adult BMI Screen ing [facility] Start: 05-15-2024 Depression Screening Depression Scre ening [facility] Start: 05-15-2024 Tobacco Screening Tobacco Screening [facility] Start: 05-04-2024 COVID-19 Vaccine ( season) COVID-19 Vaccine ( season) [facility] Start: 05-04-2024 Influenza [facility] Start: 04-15-2024 End: 04-15-2024 ambulatory 04/15/2024 3:30 PM EDT Nurse Injection [facility] [address] [place] [address] [facility] Start: 01-16-2024 End: 01-16-2024 ambulatory 01/16/2024 3:00 PM EDT Nurse Injection [facility] [address] [place] [address] [facility] Start: 05-04-2023 COVID-19 Vaccine ( season) COVID-19 Vaccine ( season) [facility] Start: 05-04-2023 Influenza vaccination Influenza Vacc ine (#1) [facility] Start: 09-03-2022 DEPRESSION ASSESSMENT DEPRESSION ASS ESSMENT [facility] Start: 07-09-2022 [facility] Start: 07-06-2022 Hospital admission [facility] Start: 07-06-2022 [facility] Start: 05-11-2022 End: 07-11-2022 POTASSIUM BLD POTASSIUM BLD Lab Routine Preop examination Anal fissure Hypokalemia Expected: 05/11/2022, Expires: 07/11/2022 [facility] Work Phone: Comment on above: Expected: 05/11/2022 , Expires: 07/11/2022 Start: 05-04-2022 Influenza vaccination INFLUENZA (#1) [facility] Start: 03-27-2022 [facility] Work Phone: Start: 10-09-2021 COVID-19 VACCINE (4 - Booster for Pfizer series) COVID-19 VACCINE (4 - Booster for Pfizer series) [facility] Start: 10-09-2021 Covid-19 Vaccine (4 - Pfizer series) Covid-19 Vaccine (4 - Pfizer series) [facility] Start: 09-03-2021 DEPRESSION ASSESSMENT DEPRESSION ASS ESSMENT [facility] Start: 12-23-2015 HPV TESTING HPV TESTING [facility] Start: 2006 PAP TESTING PAP TESTING [facility] Start: 2006 Screening for malign ant neoplasm of cervix Pap Smear [facility] Start: 2004 Urine microalbumin profile [facility] Start: 12-23-2003 Adult BMI Follow Up Plan Adult BMI Follow Up Plan [facility] Start: 12-23-2003 HEPATITIS C SCREENING HEPATITIS C SC REENING [facility] Start: 12-23-2003 HIV SCREENING HIV SCREENING [facility] Start: 1997 Adult depression screening assessment DEPRESSION SCREENING [facility] Start: 1985 HEPATITIS B (1 of 3 - 3-dose series) HEPATITIS B (1 of 3 - 3-dose series) [facility] Start: 1985 Hepatitis B Vaccine (1 of 3 - 3-dose series) Hepatitis B Vaccine (1 of 3 - 3-dose series) [facility] Start: 1985 Medicare Annual Wellness (AWV) Medicare Annual Wellness (AWV) [facility] Patient Education [facility] Work Phone: Patient referral [facility] Work Phone: [facility] Immunizations Immunization Date Immunization Notes Care Provider Fa cili 05-26-2025 influenza virus vaccine, unspecified formulation Whitley Alonzo PTA [facility] 07-28-2024 influenza virus vaccine, unspecified formulation Renée Pedraza LEAD SLOT TECHNICIAN-[employer]IL[employer] Work Phone: [facility] 09-04-2023 influenza virus vaccine, unspecified formulation [facility] Staff Accountant [facility] 07-08-2022 influenza, injectabl e, quadrivalent, preservative free DO Deedee Whiting Work Phone: [facility] 07-08-2022 influenza virus vaccine, unspecified formulation Maylin Downey MD Work Phone: [facility] Payers Date Payer Category Payer Medicare (Managed Care) [id number] 2024 Medicare HMO [facility] MEDICARE [id number] 2024 Medicare [id number] 2023 Self-pay [id number] 2020 Medicare [id number] 2017 Medicaid [id number] [id number]. [id number] 1985 Unknown [id number] 2.16.840.1.860565.3.579. 2.593 1985 Unknown [id number] 2.16.840.1.809260.3.579. 2.593 1985 Unknown [id number] 2.16.840.1.972980.3.579. 2.593 1985 Unknown [id number] 2.16.840.1.745440.3.579. 2.593 1985 Unknown [id number] 2.16.840.1.130400.3.579. 2.593 1985 Unknown [id number] 2.16.840.1.132231.3.579. 2.593 1985 Unknown [id number] 2.16.840.1.636661.3.579. 2.593 1985 Unknown [id number] 2.16.840.1.972881.3.579. 2.125 1985 Unknown [id number] 2.16.840.1.960320.3.579. 2.125 1985 Unknown [id number] 2.16840.1.038150.3.579. 2.1258 1985 Unknown [id number] 2.16840.1.428317.3.579. 2.125 1985 Unknown [id number] 2.16840.1.676171.3.579. 2.125 1985 Unknown [id number] 2.16840.1.951310.3.579. 2.125 1985 Unknown [id number] 2.16840.1.530843.3.579. 2.125 1985 Unknown [id number] 2.16840.1.890928.3.579. 2.125 1985 Unknown [id number] 2.16840.1.221491.3.579. 2.125 1985 Unknown [id number] 2.16840.1.629543.3.579. 2.125 1985 Unknown [id number] 2.16840.1.075759.3.579. 2.125 1985 Unknown [id number] 2.16840.1.959645.3.579. 2.125 1985 Unknown [id number] 2.16840.1.411419.3.579. 2.125 1985 Unknown [id number] 2.16.840.1.328160.3.579. 2.1259 1985 Unknown [id number] 2.16.840.1.962940.3.579. 2.1259 1959 Medicaid [id number] 2.16.840.1.163550.19 1959 Medicare [id number] 2.16.840.1.723804.19 Medicaid [id number] Unknown [id number] 2.16.840.1.279120.3.579. 2.531 Social History Date Type Detail Facility Unknown if ever smoked [employer] Other Start: 05-17-2023 End: 06-04-2025 Sex Assigned At [employer] Other Start: 03-27-2022 End: 03-13-2023 Tobacco smoking status NHIS Never smoked tobacco (finding) [facility] Start: 1985 Sex Assigned At [facility] Start: 04-20-2022 End: 03-13-2023 Tobacco use and exposure Smokeless tobacco non-user [facility] Start: 04-20-2022 End: 06-04-2025 Alcohol intake Lifetime non-drinker (finding) [facility] Start: 1985 Sex Assigned At Not on file [facility] Start: 04-10-2022 End: 06-22-2022 Exposure to SARS-CoV-2 (event) Not sure [facility] Start: 06-23-2022 End: 07-03-2022 Exposure to SARS-CoV-2 (event) Unable to assess [facility] Start: 05-17-2023 End: 06-04-2025 History of Social function [facility] Start: 04-07-2024 End: 07-25-2024 Alcoholic beverage intake Ex-drinker (finding) [facility] Start: 03-30-2023 Alcohol Comment Caffeine: pop rarely [facility] Start: 11-15-2023 Gender identity Identifies as female gender (finding) [facility] Start: 10-01-2024 End: 05-20-2025 Alcoholic beverage intake Current non-drinker of alcohol (finding) [facility] Adolescent depressio n screening assessment 19 [facility] Start: 05-11-2017 Sex Female (finding) [facility] Goals Date Patient Goal Desired Activity /State Functional Status Date Assessment Result Facility 07-09-2022 Functional status Patient at Baseline [facility] Work Phone: Mental Status Date Assessment Result Facility 07-09-2022 Cognitive function Cognitive Sta tus Patient at Baseline [facility] Work Phone: Clinical Notes 11-01-2021 to 06-04-2025 Gloria Logan, SNOWBOARD DESIGNER - 06/04/2025 2:15 PM EDSherrie Salazar, MA - 05/20/2025 3:00 PM Hector Pedraza, LEAD SLOT TECHNICIAN-[employer] - 05/20/2025 3:00 PM EDTSevelyn Pepe PT - 05/13/2025 4:00 PM EDT Note Date & Type Note Facility 06-04-2025 History of Present illness Narrative Associated Order(s): L Inj/Asp: R knee Post-Procedure Diagnose(s): Primary osteoarthritis of right knee Images from the original note were not included. HISTORY OF PRESENT ILLNESS: EST PT Jodi Toledo is an 39 y.o. @ female. EST PT RECHECK RT KNEE PAIN- S/P PT [facility] 04/06/25 XRAY [facility] 03/01/23 MRI [facility] 06/18/23 VENOUS DOPPLER [facility] 04/05/23 DEPO INJECTION 07/17/23, 12/04/23 MDP 11/14/23 PHYSICAL THERAPY [facility] [place] FINISHED THERAPY, NO RELIEF. PAIN CONTINUES FROM [...] Oral, Nightly atorvastatin (LIPITOR) 20 mg, Daily cqpktnmzdn-dcqdzmbxgbidp-tgfaytjv 50-325-40 MG tablet 1 tablet, Oral, Every 6 hours PRN calcium carbonate 600 mg, 2 times daily with meals dicyclomine (BENTYL) 20 mg, 2 times daily FLUoxetine (PROZAC) 40 mg, Daily medroxyPROGESTERone (Depo-Provera) 150 MG/ML suspension prefilled syringe injection syringe 0.65 mL Intramuscular every 3 months for 90 days omega-3 [...] given 40mg Depomedrol was injected. Patient tolerated this well. Neurovasc intact s/p injection. Post injection care [...] requiring urgent evaluation. documented in this encounter [facility] 05-20-2025 History of Present illness Narrative Patient is here for DepoProvera IM administration. Medical history reviewed. Pt denies abnormal bleeding, concerns related to Depo. Injection administered to ____right gluteal . Pt tolerated well, no adverse reactions noted. Patient to return to clinic for next Depo Administration in 10-12 weeks or PRN. Depo calendar given. Patient here for depo provera, not seen by provider. Depo administered by MA / nurse and patient tolerated well. JESSE Kilgore 05/20/25 1614 documented in this encounter [facility] 05-13-2025 History of Present illness Narrative Images from the original note were not included. Physical Therapy Treatment Visit Patient Name: Jodi Toledo Today's Date: 05/13/2025 Encounter Diagnoses Name Primary? Acute pain of right knee Yes Radicular pain of right lower extremity Visit number: 7 Timed Code Treatment: 47 minutes Total Treatment Time: 47 minutes Time In: 1549 Time Out: 1640 History: Pt states she has been having right knee pain for quite some time. States she was told in the past she had OA in right knee and shoulder go to therapy. Went to therapy without relief. Was finally given cortisone injection with some relief. States pain is gradually returning and she was told to return to PT. Precautions: [place] Subjective: Pt states right knee is not feeling too bad today. Will return to Dr at end of this month. Follow up May 28. Pain: 5/10 Objective: PT Evaluation (04/27/2025) KNEE AROM: 8 degrees hyperextension, 128 degrees flexion PROM: 132 degrees flexion Observation: moderate pes planus bilateral foot with rear foot valgus MMT: poor VMO firing bilateral; right hip abd and ER 3+/5, right quad 3+ to 4-/5 with MMT Muscle length: 90/90 HS testing: right knee 48 degrees, left knee 38 degrees; quad heel to buttock distance: right 2.5 inches, left 4 inches Special Test: laxity with MCL and LCL testing; negative meniscus testing Treatment: Manual Therapy: Passive ROM, Joint mobilization, Soft Tissue Mobilization, Myofascial Release, Muscle Energy Technique, Neural Mobilization, Myofascial Cupping, Dry Needling, IASTM, and Scar mobilization as needed. Therapeutic Exercise: (31 minutes supervised) Guided pt through ther and flex ex per grid performed in LE ther ex to improve hip and quad strength to improve knee stability during functional activities. Nustep (8 minutes ) Chacon lev 3 Therapeutic Activity: (16 minutes) Exercises to improve dynamic activities, functional tasks, functional mobility to return to prior activity level as needed. Including step up, and sit to stand for LE functional strength. Neuromuscular re-education: Balance Training, Muscle Facilitation, Dynamic Stability, Core Stabilization, and Blood Flow Restriction Training (BFRT) as needed. Modalities: Heat, Ice, Electrical Stimulation, Ultrasound, Cervical Mechanical Traction, Lumbar Mechanical Traction, Iontophoresis, and Fluidotherapy as needed. Assessment: Visit #7 pt with complaints of chronic right knee pain. Progressions made to increase functional strength of right LE. Pt requires cueing to avoid compensation during ex. Will continue to progress. Outcome Measure: Lower Extremity Functional Scale (LEFS): 47/80 Rehab Diagnosis: right knee pain and weakness Short Term Goal: To be met in 2 weeks Goal 1: Pt to be instructed in home exercise program. Director Veterinary Goals: To be met in 10 weeks Goal 1: Pt to report independence and compliance with home program. Goal 2: Pt to achieve 4+/5 strength right knee extension to assist with functional mobility and ADL's. Goal 3: Pt to achieve 4/5 strength right hip abduction and ER to assist with functional mobility and ADL's. Goal 4: Pt to report pain no greater than 2/10 in right knee with prolong ambulation. Goal 5: Pt to score no less than 65/80 on LEFS indicating improved QOL. Pt will benefit from skilled PT for 2x/week from 04/27/2025 to 07/20/2025 to address the above impairments. I hereby deem this POC medically necessary. Please sign below. Date: documented in this encounter [facility] 04-06-2025 History of Present illness Narrative Images from the original note were not included. HISTORY OF PRESENT ILLNESS: EST PT Jodi Toledo is an 39 y.o. @ female. (JANAE W/BRODY) RT KNEE PAIN FOR A WHILE. NKI. STATES SHE HAS ARTHRITIS. XRAY TODAY EPIC 04/06/25 XRAY [facility] 03/01/23 MRI [facility] 06/18/23 VENOUS DOPPLER TB 04/05/23 DEPO INJECTION 07/17/23, 12/04/23 MDP 11/14/23 PHYSICAL THERAPY PAIN FROM THIGH TO ANKLE. PAIN DIFFUSE IN KNEE. CONSTANT PAIN. +TYL. DENIES N/T. DENIES POPPING, GRINDING. DENIES GIVING OUT. DOES NOT WAKE AT HS. ALLERGIES: Allergies Allergen Reactions Penicillins Unknown Other Reaction(s): Anaphylaxis , Rash HOME MEDICATIONS: Current Outpatient Medications Medication Instructions amitriptyline (ELAVIL) 50 mg, Oral, Nightly atorvastatin (LIPITOR) 20 mg, Daily zgyqwuscxj-dxupabiypozgc-cjpygpjb 50-325-40 MG tablet 1 tablet, Oral, Every 6 hours PRN calcium carbonate 600 mg, 2 times daily with meals dicyclomine (BENTYL) 20 mg, 2 times daily FLUoxetine (PROZAC) 40 mg, Daily medroxyPROGESTERone (Depo-Provera) 150 MG/ML suspension prefilled syringe injection syringe 0.65 mL Intramuscular every 3 months for 90 days omega-3 (FISH OIL) 1,000 mg, Daily QUEtiapine (SEROQUEL) 400 mg, Nightly rosuvastatin (CRESTOR) 20 mg, Daily topiramate (TOPAMAX) 100 mg, Oral, Daily traZODone (Desyrel) 50 MG tablet PHYSICAL EXAM: Right Knee Exam Range of Motion Extension: 10 Flexion: 110 Tests Yara: Medial - negative Lateral - negative Varus: negative Valgus: negative Drawer: Anterior - negative Posterior - negative Other Erythema: absent Right knee sensation: radicular pain. Pulse: present Swelling: none Effusion: no effusion present Comments: Pain is radiating from thigh down to her ankle. Vitals: There is no height or weight on file to calculate BMI. Tobacco Use: Low Risk (04/06/2025) Patient History Smoking Tobacco Use: Never Smokeless Tobacco Use: Never Passive Exposure: Not on file Alcohol Use: Not on file IMAGING: XR knee 1 or 2 views right Imaging Result: 04/06/2025: AP and lateral of right knee showed excellent preservation of joint space heights there was no flattening of the articular surfaces tricompartmentally. There was no evidence of marginal osteophytic formation. Overall alignment appeared to be normal. There was no evidence of fracture or dislocation. Bony structures in view showed excellent ossification. Impression: No acute bony process, right knee Gloria Logan LEAD SLOT TECHNICIAN-KILN HAND Procedures Orders Placed This Encounter Procedures XR knee 1 or 2 views right Is the patient ?: No Reason for exam:: pain ASSESSMENT: ICD-10-CM 1. Radicular pain of right lower extremity M54.10 2. Acute pain of right knee M25.561 XR knee 1 or 2 views right PLAN: I reviewed xray findings with the patient and discussed treatment options, answered questions. I recommend she do some PT to work on ROM of her knee. Her previous Mri did show chondral fissuring but her pain is more in there thigh and down to her ankle. If still painful in 6-8 weeks consider injection. Questions answered in laymen terms at the bedside. The diagnosis, home exercise plan and any ongoing restrictions/ recommendations reviewed. If unable to be reached in office, I recommend evaluation at nearest Emergency Room if any symptoms worsened or new symptoms develop for requiring urgent evaluation. documented in this encounter [facility] 03-04-2025 History of Present illness Narrative Patient is here for DepoProvera IM administration. Medical history reviewed. Pt denies abnormal bleeding, concerns related to Depo. Injection administered to LUOQ. Pt tolerated well, no adverse reactions noted. Patient to return to clinic for next Depo Administration in 10-12 weeks or PRN. Patient here for depo provera, not seen by provider. Depo administered by MA / nurse and patient tolerated well. Due for next medicare breast and pelvic exam in May 2025. JESSE Kilgore 03/04/25 1454 documented in this encounter [facility] 12-17-2024 History of Present illness Narrative Patient is here for DepoProvera IM administration. Medical history reviewed. Pt denies abnormal bleeding, concerns related to Depo. Injection administered to RUOQ. Pt tolerated well, no adverse reactions noted. Patient to return to clinic for next Depo Administration in 10-12 weeks or PRN. Patient here for depo provera, not seen by provider. Depo administered by MA / nurse and patient tolerated well. Due for next Medicare breast and pelvic exam May 2025. JESSE Kilgore 12/17/24 1447 documented in this encounter [facility] 10-20-2024 History of Present illness Narrative Images from the original note were not included. Chief Complaint Patient presents with Sleep Apnea Migraine Subjective Jodi states her headaches have been doing well. She averages about 1 headache per week. She is doing well with the topamax and amitriptyline. She does wear her PAP machine nightly. Past Medical History: Diagnosis Date Common migraine (CMS/HCC) Disturbance of conduct (CMS/HCC) Headache Hypersomnia Mentally challenged (CMS/HCC) Migraine (CMS/HCC) Migraine headache (CMS/HCC) Obesity Obsessive compulsive disorder (CMS/HCC) Obstructive sleep apnea Tension headache Tremor Past Surgical History: Procedure Laterality Date RECTAL SURGERY 2021 fissure Family History Problem Relation Name Age of Onset Fibromyalgia Mother Destiny Toledo Social History Tobacco Use Smoking status: Never Smokeless tobacco: Never Substance Use Topics Alcohol use: Never Comment: Caffeine: pop rarely Allergies: Penicillins General: No fever or chills HEENT: No nasal congestion or runny nose Pulmonary: No shortness of breath or cough Cardiovascular: No chest pain or palpitations GI: No nausea or vomiting : No dysuria or hematuria Musculoskeletal: No new aches or pains or muscle weakness Infectious: no recurrent fevers or infections Dermatologic: No rashes or skin lesions Neurologic: No new headaches or dizziness Vitals: 10/20/24 1501 BP: 138/82 Pulse: 97 SpO2: 97% Body mass index is 41.44 kg/m . weight: 249 lb Neurologic exam: General: Normal body habitus, cooperative, pleasant Mental status: Awake, alert to person, place and time. Recent and remote memory are intact. Attention and concentration are normal. Fund of knowledge below average HEENT: NC/AT Cranial nerves: CN II: Visual doss full to confrontation. No loss of vision CN III, IV, : pupils equal round and reactive to light. Extraocular movements intact. No ptosis present. CN V: Facial sensation is normal. CN VII: Full and symmetric facial movement. CN VIII: Hearing is normal CN IX and X: Palate elevates symmetrically. CN XI: Shoulder shrug is normal bilaterally. CN XII: Tongue is midline without atrophy or fasciculation. Speech: Clear and fluent no aphasia or dysarthria Pronator drift: Negative bilateral upper extremity Coordination: Intact, no signs of dysmetria Good finger to nose and rapid alternating movements Sensory: Sensation is intact to light and vibratory touch throughout four extremities. Motor: LUE 5/5 RUE 5/5 LLE 5/5 RLE 5/5 Tone: Physiologic, no tremor, bradykinesia or rigidity DTR: Bilateral Biceps x Bilateral BR x Bilateral Patellar x No spasticity Gait: Normal to casual gait Romberg's x Review and summary of old records: Assessment/Plan There are no diagnoses linked to this encounter. 38 year old female with psychosis that has improved with a an increase in her seroquel. She is on a rather large dose. Psychosis is provoked with poor sleep. She has been admitted for her psychosis to [facility] unit at [facility] in the past. Her seroquel is managed by psychiatry. She continues with Dr. chester. Since then she has been put on trazadone and her sleep has improved she has had no further spells. Her mood disorder is stable. Weather and poor sleep are migraine triggers. Migraines have been under great control. She rarely uses the fioricet. She is getting one headache a week and these have improved. I think it is reasonable to see her every 6 months as long as she is stable. We have had no concerns with her OARRS. She can not remember the last time she had a migraine. She used advil to abort a headache when needed. . She does have obstructive sleep and daytime hypersomnolence and snoring. She is on her CPAP machine and she is using that regularly. Download ending 10/15/2024 she is compliant with wearing mask > 4 hours 73% of the days, with nightly average usage 6 hours, 18 minutes, residual AHI 0.9. She reports she is sleeping with it on all night. She does benefit from the mask. She missed a few days on the download again due to travel and not taking it with her. She does not want to hassle with it when she goes to see her brother. She did decrease her sleep time from 8 hours down to averaging 6 and some minutes on last two downloads. She may nap for an hour during the day and should get this added back to her night time sleep. She also does not wear mask during naps and should definitely do this. She is not having issues with her mask or the machine. Mother states she had to call for new supplies and they were not sent automatically as they had been. Unsure why. She has underlying obesity but needs to be more aggressive with diet and exerise. OCD is stable. She does continue to work for [employer] 2 days a week and then goes to [employer] two days a week. . Mother and patient have noticed some memory issues. She is asking same questions and misplacing items. This again has not worsened and is stable. MRI brain 12/05/2022 was unremarkable. TSH 0.99 from PCP. They would like to monitor and hold on any further testing or labwork. Denies any unsafe behaviors. . Fioricet was denied. Patient called to discuss. She has vision changes prior to migraine, visual aura. Was resent. As far as I know they have not had any further issues filling this. . . . Plan complaince download reviewed Compliance download at next visit She may try liners for her mask from [employer] if leak bothers her monitor memory consider memory labwork/EEG but would like to hold for now Seroquel managed by psychiatry, continue with them Continue the Elavil 25 mg 2 tabs at bedtime-get back on two as for some reason she was filled with an old script Continue Topamax 100 mg po daily Use a CPAP she whenever sleeping Keep sleep set sleep-wake cycles Minimize any napping during the day, wear mask continue CPAP for SUZANNE and wear whenever sleeping Take mask and machine with you when you are traveling and use with napping she can continue Fioricet for acute migraine treatment OARRs reviewed at time of refills and today, no concerns, Fioricet last filled 04/2024 The patient was councelled on the risks of stroke, [place], and sudden with SUZANNE, along with the need for compliance with CPAP/BiPAP treatment. This was discussed with the patient, all questions were answered and they agreed with the treatment plan. The patient is to call with any worsening of the condition or new symptoms. Return to clinic: 6 months documented in this encounter [facility] 10-01-2024 History of Present illness Narrative HPI Luca Toledo is a pleasant 38 y.o. female who presents for annual contraception follow up. Current contraception: Depo-Provera injections and abstinence. Periods are none. The patient has no complaints today. 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 HPV vaccinated: NO Flu shot this flu season: Menstrual History: No LMP recorded. Patient has had an injection. The following portions of the patient's history were reviewed and updated as appropriate: allergies, current medications, past family history, past medical history, past social history, past surgical history, problem list, and medication reconciliation was completed including current medication and post discharge medication. Review of Systems Review of Systems Constitutional: Negative. Respiratory: Negative. Negative for chest tightness and shortness of breath. Cardiovascular: Negative. Negative for chest pain and palpitations. Gastrointestinal: Negative. Negative for constipation, diarrhea, nausea and vomiting. Genitourinary: Negative. Neurological: Negative. Psychiatric/Behavioral: Negative. Objective BP 106/80 Ht 160 cm (5' 3 ) Wt 113.9 kg (251 lb) BMI 44.46 kg/m Physical Exam Vitals and nursing note reviewed. Constitutional: Appearance: Normal appearance. Cardiovascular: Rate and Rhythm: Normal rate and regular rhythm. Pulses: Normal pulses. Heart sounds: Normal heart sounds. Pulmonary: Effort: Pulmonary effort is normal. Breath sounds: Normal breath sounds. Musculoskeletal: General: Normal range of motion. Skin: General: Skin is warm and dry. Neurological: Mental Status: She is alert and oriented to person, place, and time. Mental status is at baseline. Psychiatric: Mood and Affect: Mood normal. Speech: Speech normal. Behavior: Behavior normal. Assessment / Plan Jodi was seen today for contraception. Diagnoses and all orders for this visit: Encounter for surveillance of injectable contraceptive - medroxyPROGESTERone (DEPO-PROVERA) injection 150 mg General counselling and advice on contraception 38 y.o. continuing Depo-Provera injections, no contraindications. Educational information provided. All questions answered. HPV vaccine recommended between 9-45 yo. Can be received at [facility] or the health department. RTO 3 months for next depo provera or sooner as needed. Recommend condom use if / when patient becomes sexually active. JOJO Britt APRN-CNP Lisa M Krotzer, APRN-CNP 10/01/24 1312 documented in this encounter [facility] 07-25-2024 History of Present illness Narrative HPI: Historian of HPI: patient Jodi Toledo is a 38 y.o. female who presents today to the Urgent Care with the following complaints and denials due left ankle pain which has been present for 2 day(s). C/O Denies Symptom Comments [x] [] swelling [] [x] ecchymosis [x] [] erythema [] [x] tingling [] [x] numbness [] [x] Pain radiation [] [x] Weakness [x] [] Decreased ROM [x] [] Trauma Additional Comments: Pt reports he sprained her left ankle yesterday. Pt states she fell yesterday. Pt c/o swelling/bruising. ROS: A complete system ROS was performed and negative aside from the pertinent positives noted in the HPI and PE. Examination: General Examination: General Examination: Alert, oriented, normal affect, well-appearing, in no acute distress, well developed, well nourished. Head: Normocephalic, atraumatic Eyes: Sclera anicteric. Neck/Thyroid: Neck supple, full range of motion Lymph Nodes: no cervical adenopathy Skin: Early ecchymosis noted diffusely around lateral aspect of ankle Heart: no murmurs, regular rate and rhythm, S1, S2 normal Lungs: clear to auscultation bilaterally Musculoskeletal: Left ankle; significant swelling over lateral malleolus with well localized tenderness over the ATF. ROM decreased with pain all planes. Mike's neg. Drawer's neg. Extremities: no clubbing, cyanosis Peripheral Pulses: 2+ posterior tibial, 2+ dorsalis pedis Neurologic: nonfocal Psych: alert, oriented, cognitive function intact, cooperative with exam 1. Injury of left ankle, initial encounter Stat xray obtained showing no acute osseous findings. - XR ankle 3+ views left 2. Left ankle strain, initial encounter (Primary) Diagnosis and treatment discussed. Rest and elevate. Ice intermittently for the next 48 hours. Switch to gentle heat after 48 hours. Patient placed in lace-up ankle brace. Discussed crutches for NWB; the patient declined. Tylenol or Motrin as needed for pain. Follow-up with PCP if no improvement in 7 days. Immediate eval for new or worsening symptoms. Associated Order(s): Splint Application Post-Procedure Diagnose(s): Injury of left ankle, initial encounter; Left ankle strain, initial encounter Images from the original note were not included. Patient ID: Jodi Toledo is a 38 y.o. female. Splint Application Date/Time: 07/25/2024 2:19 PM Performed by: Radha Rothman LPN Authorized by: Radha Vasquez NP Consent: Consent obtained: Verbal Consent given by: Patient Procedure details: Location: Foot Foot location: L foot Cast type: Short leg Supplies: Prefabricated splint Attestation: Splint applied and adjusted personally by me documented in this encounter [facility] 07-02-2024 History of Present illness Narrative Patient is here for DepoProvera IM administration. Medical history reviewed. Pt denies abnormal bleeding, concerns related to Depo. Urine test negative. Injection administered to __RUQ . Pt tolerated well, no adverse reactions noted. Patient to return to clinic for next Depo Administration in 10-12 weeks or PRN. Depo calendar given. Patient here for depo provera, not seen by provider. Depo administered by MA and patient tolerated well. JESSE Kilgore 07/02/24 1357 documented in this encounter [facility] 04-28-2024 Telephone encounter Note Note addended. Med resent. [facility] 04-28-2024 Miscellaneous Notes Note addended. Med resent. Per destiny, she states her vision gets blurry prior to a migraine, that is the only vision change she has with migraines. She states she is unsure if there is more than blurriness, the patient has a hard time with communication as she is mentally challenged. Destiny denies any change in the patients insurance, she has Medicaid and Medicare. Unsure why this is now getting denied. She has not filled it is some time and maybe insurance has changed. Regardless, I used the diagnosis that is in her chart. Please call mom and ask if she has an aura before the migraine what it is and I will write and addendum to her chart etc. As of now there is no aura noted in recent note. Patients mother, Destiny, calls again to follow up on this. butalbitol was denied by insurance saying this drug was used for migraine without aura. Mother wants to know if this can be re worded to be approved. Submitted via [facility]: [place]: [id number] Pa needed for butalbitol per mom documented in this encounter [facility] 04-25-2024 Telephone encounter Note Per destiny, she states her vision gets blurry prior to a migraine, that is the only vision change she has with migraines. She states she is unsure if there is more than blurriness, the patient has a hard time with communication as she is mentally challenged. Destiny denies any change in the patients insurance, she has Medicaid and Medicare. T [facility] 04-24-2024 Telephone encounter Note Unsure why this is now getting denied. She has not filled it is some time and maybe insurance has changed. Regardless, I used the diagnosis that is in her chart. Please call mom and ask if she has an aura before the migraine what it is and I will write and addendum to her chart etc. As of now there is no aura noted in recent note. T [facility] 04-24-2024 Telephone encounter Note Patients mother, Destiny, calls again to follow up on this. T [facility] 04-23-2024 Telephone encounter Note butalbitol was denied by insurance saying this drug was used for migraine without aura. Mother wants to know if this can be re worded to be approved. T [facility] 04-16-2024 Telephone encounter Note Submitted via [facility]: [place]: [id number] [facility] 04-15-2024 History of Present illness Narrative Patient is here for DepoProvera IM administration. Medical history reviewed. Pt denies abnormal bleeding, concerns related to Depo. Urine test negative. Injection administered to __LUQ . Pt tolerated well, no adverse reactions noted. Patient to return to clinic for next Depo Administration in 10-12 weeks or PRN. Depo calendar given. documented in this encounter [facility] 04-15-2024 Telephone encounter Note Pa needed for butalbitol per mom [facility] 01-23-2024 History of Present illness Narrative Patient is here for DepoProvera IM administration. Medical history reviewed. Pt denies abnormal bleeding, concerns related to Depo. Urine test negative. Injection administered to ___right uppter quadrant__. Pt tolerated well, no adverse reactions noted. Patient to return to clinic for next Depo Administration in 10-12 weeks or PRN. Depo calendar given. documented in this encounter [facility] 10-25-2023 History of Present illness Narrative Patient is here for DepoProvera IM administration. Medical history reviewed. Pt denies abnormal bleeding, concerns related to Depo. Urine test negative. Injection administered to ___LUQ . Pt tolerated well, no adverse reactions noted. Patient to return to clinic for next Depo Administration in 10-12 weeks or PRN. Depo calendar given. documented in this encounter [facility] 05-17-2023 Note HNO ID: [id number] Author: Maylin Downey MD Service: ? Author Type: Physician Type: Progress Notes Filed: 05/17/2023 11:32 AM Note Text: COLORECTAL SURGERY May 17, 2023 Jodi Toledo Chief Complaint: follow up/ anal fissure History of Present Illness: Jodi Toledo is a 37 year old female presents to the office for a follow up evaluation of an anal fissure. 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 Last seen in the office on 10/26/22. Prior A/P: anal fissure s/p sphincterotomy 06/2022 w/ granulation tissue at posterior midline fissure site. Silver nitrate applied to granulation tissue Continue bowel regimen, Sitz baths PRN RTC in 6 months if ongoing symptoms, otherwise RTC PRN ------- Bleeding? No Anorectal pain? No Seepage? No Stool consistency: Soft, formed Time in bathroom for BM: Less than 10 minutes Pushing and straining? No Current meds for constipation: none PAST MEDICAL HISTORY Diagnosis Date Anxiety HLD (hyperlipidemia) Intellectual disability patient's mother reports she is high functioning Migraines Mood disorder (HCC) Sleep apnea PAST SURGICAL HISTORY Procedure Laterality Date COLONOSCOPY SCREENING PAST SURGICAL HISTORY OF 05/2022 botox Current Outpatient Medications Medication Sig Dispense Refill FLUoxetine (PROZAC) 20 mg capsule Take 40 mg by mouth daily at bedtime. medroxyPROGESTERone (DEPO-PROVERA) 150 mg/mL injection Inject 150 mg intramuscularly every 3 months. docusate sodium (COLACE) 100 mg capsule Take 100 mg by mouth twice daily. amitriptyline (ELAVIL) 25 mg tablet Take 25 mg by mouth. acetaminophen 325 mg-caffeine 40 mg-butalbital 50 mg (FIORICET) per tablet TAKE 1 TABLET BY MOUTH AT THE ONSET OF MIGRAINE, MAY REPEAT EVERY 4 TO 6 HOURS. NO MORE THAN 2 TIMES A DAY AND 2 TIMES A WEEK calcium carbonate (CALTRATE) 600 mg calcium (1,500 mg) tab Take 600 mg by mouth. QUEtiapine (SEROQUEL) 25 mg tablet Take 25 mg by mouth. Takes 1.5 tablets by mouth daily rosuvastatin (CRESTOR) 5 mg tablet Take 5 mg by mouth once daily. topiramate (TOPAMAX) 100 mg tablet lidocaine (XYLOCAINE) 5 % ointment APPLY NEEDED FOUR TIMES A DAY No current facility-administered medications for this visit. ALLERGIES Allergen Reactions Penicillins Unknown FAMILY HISTORY Problem Relation Age of Onset No Known Problems Mother Diabetes Father Anesthesia Problems No Family History Social History Tobacco Use Smoking status: Never Smokeless tobacco: Never Vaping Use Vaping Use: Never used Substance Use Topics Alcohol use: Never Drug use: Never Physical Exam: BP 129/84 Pulse 93 Ht 167.6 cm (5' 6 ) Wt 111.8 kg (246 lb 8 oz) BMI 39.79 kg/m? General Appearance: Well appearing, alert, in no acute distress, well-hydrated, well nourished. Abdomen: soft ND NT obese Anorectal: External exam reveals healed right lateral sphincterotomy site, no fissure. + soilage and mild perianal dermatitis. Pier Hand present: Yes Bianca Assessment Assessment and Plan: Jodi Toledo is a 37 year old female w/ chronic anal fissure s/p LIS. Doing well. Fiber for soilage and dermatitis RTC PRN Medical Decision Making: Data Reviewed: Tests AND Documents Reviewed/ordered: Review of prior notes from [facility] Review of prior operative reports I have discussed Jodi Toledo's treatment plan and/or results with the patient. I spent a total of 20 minutes on the date of the service which included preparing to see the patient, [id number] patient care, completing clinical documentation, obtaining and/or reviewing separately obtained history, performing a medically appropriate examination, counseling and educating the patient/family/caregiver, and care coordination (not separately reported). Maylin Downey MD Colorectal Surgery [facility] 05-17-2023 History of Present illness Narrative COLORECTAL SURGERY May 17, 2023 Jodi Toledo Chief Complaint: follow up/ anal fissure History of Present Illness: Jodi Toledo is a 37 year old female presents to the office for a follow up evaluation of an anal fissure. 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 Last seen in the office on 10/26/22. Prior A/P: anal fissure s/p sphincterotomy 06/2022 w/ granulation tissue at posterior midline fissure site. Silver nitrate applied to granulation tissue Continue bowel regimen, Sitz baths PRN RTC in 6 months if ongoing symptoms, otherwise RTC PRN ------- Bleeding? No Anorectal pain? No Seepage? No Stool consistency: Soft, formed Time in bathroom for BM: Less than 10 minutes Pushing and straining? No Current meds for constipation: none PAST MEDICAL HISTORY Diagnosis Date Anxiety HLD (hyperlipidemia) Intellectual disability patient's mother reports she is high functioning Migraines Mood disorder (HCC) Sleep apnea PAST SURGICAL HISTORY Procedure Laterality Date COLONOSCOPY SCREENING PAST SURGICAL HISTORY OF 05/2022 botox Current Outpatient Medications Medication Sig Dispense Refill FLUoxetine (PROZAC) 20 mg capsule Take 40 mg by mouth daily at bedtime. medroxyPROGESTERone (DEPO-PROVERA) 150 mg/mL injection Inject 150 mg intramuscularly every 3 months. docusate sodium (COLACE) 100 mg capsule Take 100 mg by mouth twice daily. amitriptyline (ELAVIL) 25 mg tablet Take 25 mg by mouth. acetaminophen 325 mg-caffeine 40 mg-butalbital 50 mg (FIORICET) per tablet TAKE 1 TABLET BY MOUTH AT THE ONSET OF MIGRAINE, MAY REPEAT EVERY 4 TO 6 HOURS. NO MORE THAN 2 TIMES A DAY AND 2 TIMES A WEEK calcium carbonate (CALTRATE) 600 mg calcium (1,500 mg) tab Take 600 mg by mouth. QUEtiapine (SEROQUEL) 25 mg tablet Take 25 mg by mouth. Takes 1.5 tablets by mouth daily rosuvastatin (CRESTOR) 5 mg tablet Take 5 mg by mouth once daily. topiramate (TOPAMAX) 100 mg tablet lidocaine (XYLOCAINE) 5 % ointment APPLY NEEDED FOUR TIMES A DAY No current facility-administered medications for this visit. ALLERGIES Allergen Reactions Penicillins Unknown FAMILY HISTORY Problem Relation Age of Onset No Known Problems Mother Diabetes Father Anesthesia Problems No Family History Social History Tobacco Use Smoking status: Never Smokeless tobacco: Never Vaping Use Vaping Use: Never used Substance Use Topics Alcohol use: Never Drug use: Never Physical Exam: BP 129/84 Pulse 93 Ht 167.6 cm (5' 6 ) Wt 111.8 kg (246 lb 8 oz) BMI 39.79 kg/m General Appearance: Well appearing, alert, in no acute distress, well-hydrated, well nourished. Abdomen: soft ND NT obese Anorectal: External exam reveals healed right lateral sphincterotomy site, no fissure. + soilage and mild perianal dermatitis. Pier Hand present: Yes Bianca Assessment Assessment and Plan: Jodi Toledo is a 37 year old female w/ chronic anal fissure s/p LIS. Doing well. Fiber for soilage and dermatitis RTC PRN Medical Decision Making: Data Reviewed: Tests & Documents Reviewed/ordered: Review of prior notes from [facility] Review of prior operative reports I have discussed Jodi Toledo's treatment plan and/or results with the patient. I spent a total of 20 minutes on the date of the service which included preparing to see the patient, [id number] patient care, completing clinical documentation, obtaining and/or reviewing separately obtained history, performing a medically appropriate examination, counseling and educating the patient/family/caregiver, and care coordination (not separately reported). Maylin Downey MD Colorectal Surgery documented in this encounter [facility] 10-26-2022 Note HNO ID: [id number] Author: Maylin Downey MD Service: ? 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 Continue supportive management RTC 3 months for wound check Warning signs of infection reviewed. Symptoms: Still with mild proctalgia and hematochezia improved from prior to procedure. No FI or seepage. PAST MEDICAL HISTORY Diagnosis Date Anxiety HLD (hyperlipidemia) Intellectual disability patient's mother reports she is high functioning Migraines Mood disorder (HCC) Sleep apnea PAST SURGICAL HISTORY Procedure Laterality Date COLONOSCOPY SCREENING PAST SURGICAL HISTORY OF 05/2022 botox Current Outpatient Medications Medication Sig Dispense Refill FLUoxetine (PROZAC) 20 mg capsule Take 40 mg by mouth daily at bedtime. medroxyPROGESTERone (DEPO-PROVERA) 150 mg/mL injection Inject 150 mg intramuscularly every 3 months. docusate sodium (COLACE) 100 mg capsule Take 100 mg by mouth twice daily. amitriptyline (ELAVIL) 25 mg tablet Take 25 mg by mouth. acetaminophen 325 mg-caffeine 40 mg-butalbital 50 mg (FIORICET) per tablet TAKE 1 TABLET BY MOUTH AT THE ONSET OF MIGRAINE, MAY REPEAT EVERY 4 TO 6 HOURS. NO MORE THAN 2 TIMES A DAY AND 2 TIMES A WEEK calcium carbonate (CALTRATE) 600 mg calcium (1,500 mg) tab Take 600 mg by mouth. lidocaine (XYLOCAINE) 5 % ointment APPLY NEEDED FOUR TIMES A DAY QUEtiapine (SEROQUEL) 25 mg tablet Take 25 mg by mouth. Takes 1.5 tablets by mouth daily rosuvastatin (CRESTOR) 5 mg tablet Take 5 mg by mouth once daily. topiramate (TOPAMAX) 100 mg tablet No current facility-administered medications for this visit. ALLERGIES Allergen Reactions Penicillins Unknown FAMILY HISTORY Problem Relation Age of Onset No Known Problems Mother Diabetes Father Anesthesia Problems No Family History Social History Tobacco Use Smoking status: Never Smokeless tobacco: Never Vaping Use Vaping Use: Never used Substance Use Topics Alcohol use: Never Drug use: Never Physical Exam: There were no vitals taken for this visit. General Appearance: Well appearing, alert, in no acute distress, well-hydrated, well nourished. Abdomen: soft ND NT obese Anorectal: External exam reveals posterior midline granulation tissue at anal verge. RL incision well healed. Pier Hand present: Yes Dawson Assessment Assessment and Plan: Jodi Toledo is a 36 year old female with anal fissure s/p sphincterotomy 06/2022 w/ granulation tissue at posterior midline fissure site. Silver nitrate applied to granulation tissue Continue bowel regimen, Sitz baths PRN RTC in 6 months if ongoing symptoms, otherwise RTC PRN Medical Decision Making: Data Reviewed: Tests AND Documents Reviewed/ordered: Review of prior notes from myself, Dr. Johnson Review of prior operative reports I have discussed Jodi Toledo's treatment plan and/or results with the patient. I spent a total of 30 minutes on the date of the service which included preparing to see the patient, [id number] patient care, completing clinical documentation, obtaining and/or reviewing separately obtained history, performing a medically appropriate examination, and counseling and educating the patient/family/caregiver. 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 Continue supportive management RTC 3 months for wound check Warning signs of infection reviewed. Symptoms: Still with mild proctalgia and hematochezia improved from prior to procedure. No FI or seepage. PAST MEDICAL HISTORY Diagnosis Date Anxiety HLD (hyperlipidemia) Intellectual disability patient's mother reports she is high functioning Migraines Mood disorder (HCC) Sleep apnea PAST SURGICAL HISTORY Procedure Laterality Date COLONOSCOPY SCREENING PAST SURGICAL HISTORY OF 05/2022 botox Current Outpatient Medications Medication Sig Dispense Refill FLUoxetine (PROZAC) 20 mg capsule Take 40 mg by mouth daily at bedtime. medroxyPROGESTERone (DEPO-PROVERA) 150 mg/mL injection Inject 150 mg intramuscularly every 3 months. docusate sodium (COLACE) 100 mg capsule Take 100 mg by mouth twice daily. amitriptyline (ELAVIL) 25 mg tablet Take 25 mg by mouth. acetaminophen 325 mg-caffeine 40 mg-butalbital 50 mg (FIORICET) per tablet TAKE 1 TABLET BY MOUTH AT THE ONSET OF MIGRAINE, MAY REPEAT EVERY 4 TO 6 HOURS. NO MORE THAN 2 TIMES A DAY AND 2 TIMES A WEEK calcium carbonate (CALTRATE) 600 mg calcium (1,500 mg) tab Take 600 mg by mouth. lidocaine (XYLOCAINE) 5 % ointment APPLY NEEDED FOUR TIMES A DAY QUEtiapine (SEROQUEL) 25 mg tablet Take 25 mg by mouth. Takes 1.5 tablets by mouth daily rosuvastatin (CRESTOR) 5 mg tablet Take 5 mg by mouth once daily. topiramate (TOPAMAX) 100 mg tablet No current facility-administered medications for this visit. ALLERGIES Allergen Reactions Penicillins Unknown FAMILY HISTORY Problem Relation Age of Onset No Known Problems Mother Diabetes Father Anesthesia Problems No Family History Social History Tobacco Use Smoking status: Never Smokeless tobacco: Never Vaping Use Vaping Use: Never used Substance Use Topics Alcohol use: Never Drug use: Never Physical Exam: There were no vitals taken for this visit. General Appearance: Well appearing, alert, in no acute distress, well-hydrated, well nourished. Abdomen: soft ND NT obese Anorectal: External exam reveals posterior midline granulation tissue at anal verge. RL incision well healed. Pier Hand present: Yes Dawson Assessment Assessment and Plan: Jodi Toledo is a 36 year old female with anal fissure s/p sphincterotomy 06/2022 w/ granulation tissue at posterior midline fissure site. Silver nitrate applied to granulation tissue Continue bowel regimen, Sitz baths PRN RTC in 6 months if ongoing symptoms, otherwise RTC PRN Medical Decision Making: Data Reviewed: Tests & Documents Reviewed/ordered: Review of prior notes from myself, Dr. Johnson Review of prior operative reports I have discussed Jodi Toledo's treatment plan and/or results with the patient. I spent a total of 30 minutes on the date of the service which included preparing to see the patient, [id number] patient care, completing clinical documentation, obtaining and/or reviewing separately obtained history, performing a medically appropriate examination, and counseling and educating the patient/family/caregiver. Maylin oDwney MD Colorectal Surgery documented in this encounter [facility] 08-01-2022 Note HNO ID: [id number] Author: Maylin Downey MD Service: ? Author Type: Physician Type: Progress Notes Filed: 08/01/2022 3:55 PM Note Text: COLORECTAL SURGERY August 01, 2022 Jodi Toledo Chief Complaint: post op/ anal fissure History of Present Illness: Jodi Toledo is a 36 year old female presents to the office for a post op evaluation after undergoing a lateral internal sphincterotomy for a chronic anal fissure on 07/03/22. Symptoms: still with pain and hematochezia FI: denies Medications: stool softener, nifedipine topical PAST MEDICAL HISTORY Diagnosis Date Anxiety HLD (hyperlipidemia) Intellectual disability patient's mother reports she is high functioning Migraines Mood disorder (HCC) Sleep apnea PAST SURGICAL HISTORY Procedure Laterality Date COLONOSCOPY SCREENING PAST SURGICAL HISTORY OF 05/2022 botox Current Outpatient Medications Medication Sig Dispense Refill FLUoxetine (PROZAC) 20 mg capsule Take 40 mg by mouth daily at bedtime. medroxyPROGESTERone (DEPO-PROVERA) 150 mg/mL injection Inject 150 mg intramuscularly every 3 months. docusate sodium (COLACE) 100 mg capsule Take 100 mg by mouth twice daily. amitriptyline (ELAVIL) 25 mg tablet Take 25 mg by mouth. acetaminophen 325 mg-caffeine 40 mg-butalbital 50 mg (FIORICET) per tablet TAKE 1 TABLET BY MOUTH AT THE ONSET OF MIGRAINE, MAY REPEAT EVERY 4 TO 6 HOURS. NO MORE THAN 2 TIMES A DAY AND 2 TIMES A WEEK calcium carbonate (CALTRATE) 600 mg calcium (1,500 mg) tab Take 600 mg by mouth. lidocaine (XYLOCAINE) 5 % ointment APPLY NEEDED FOUR TIMES A DAY QUEtiapine (SEROQUEL) 25 mg tablet Take 25 mg by mouth. Takes 1.5 tablets by mouth daily rosuvastatin (CRESTOR) 5 mg tablet Take 5 mg by mouth once daily. topiramate (TOPAMAX) 100 mg tablet No current facility-administered medications for this visit. ALLERGIES Allergen Reactions Penicillins Unknown FAMILY HISTORY Problem Relation Age of Onset No Known Problems Mother Diabetes Father Anesthesia Problems No Family History Social History Tobacco Use Smoking status: Never Smokeless tobacco: Never Vaping Use Vaping Use: Never used Substance Use Topics Alcohol use: Never Drug use: Never Physical Exam: BP 140/96 (BP Site: Right Arm, BP Position: Sitting) Pulse 88 Temp 37.1 ?C (98.7 ?F) Ht 167.6 cm (5' 6 ) Wt 102.1 kg (225 lb) SpO2 98% BMI 36.32 kg/m? General Appearance: Well appearing, alert, in no acute distress, well-hydrated, well nourished. Abdomen: soft ND NT Anorectal: External exam reveals open wound RL anal verge 1 cm in length with healthy granulation tissue at base, healing posterior midline fissure. 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 Continue supportive management RTC 3 months for wound check Warning signs of infection reviewed. Medical Decision Making: Data Reviewed: Tests AND Documents Reviewed/ordered: Review of prior notes from myself, Bebeto Johnson Review of prior operative reports I have discussed Jodi Toledo's treatment plan and/or results with the patient. I spent a total of 30 minutes on the date of the service which included preparing to see the patient, [id number] patient care, completing clinical documentation, obtaining and/or reviewing separately obtained history, performing a medically appropriate examination, and counseling and educating the patient/family/caregiver. 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 Symptoms: still with pain and hematochezia FI: denies Medications: stool softener, nifedipine topical PAST MEDICAL HISTORY Diagnosis Date Anxiety HLD (hyperlipidemia) Intellectual disability patient's mother reports she is high functioning Migraines Mood disorder (HCC) Sleep apnea PAST SURGICAL HISTORY Procedure Laterality Date COLONOSCOPY SCREENING PAST SURGICAL HISTORY OF 05/2022 botox Current Outpatient Medications Medication Sig Dispense Refill FLUoxetine (PROZAC) 20 mg capsule Take 40 mg by mouth daily at bedtime. medroxyPROGESTERone (DEPO-PROVERA) 150 mg/mL injection Inject 150 mg intramuscularly every 3 months. docusate sodium (COLACE) 100 mg capsule Take 100 mg by mouth twice daily. amitriptyline (ELAVIL) 25 mg tablet Take 25 mg by mouth. acetaminophen 325 mg-caffeine 40 mg-butalbital 50 mg (FIORICET) per tablet TAKE 1 TABLET BY MOUTH AT THE ONSET OF MIGRAINE, MAY REPEAT EVERY 4 TO 6 HOURS. NO MORE THAN 2 TIMES A DAY AND 2 TIMES A WEEK calcium carbonate (CALTRATE) 600 mg calcium (1,500 mg) tab Take 600 mg by mouth. lidocaine (XYLOCAINE) 5 % ointment APPLY NEEDED FOUR TIMES A DAY QUEtiapine (SEROQUEL) 25 mg tablet Take 25 mg by mouth. Takes 1.5 tablets by mouth daily rosuvastatin (CRESTOR) 5 mg tablet Take 5 mg by mouth once daily. topiramate (TOPAMAX) 100 mg tablet No current facility-administered medications for this visit. ALLERGIES Allergen Reactions Penicillins Unknown FAMILY HISTORY Problem Relation Age of Onset No Known Problems Mother Diabetes Father Anesthesia Problems No Family History Social History Tobacco Use Smoking status: Never Smokeless tobacco: Never Vaping Use Vaping Use: Never used Substance Use Topics Alcohol use: Never Drug use: Never Physical Exam: BP 140/96 (BP Site: Right Arm, BP Position: Sitting) Pulse 88 Temp 37.1 C (98.7 F) Ht 167.6 cm (5' 6 ) Wt 102.1 kg (225 lb) SpO2 98% BMI 36.32 kg/m General Appearance: Well appearing, alert, in no acute distress, well-hydrated, well nourished. Abdomen: soft ND NT Anorectal: External exam reveals open wound RL anal verge 1 cm in length with healthy granulation tissue at base, healing posterior midline fissure. 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 Continue supportive management RTC 3 months for wound check Warning signs of infection reviewed. Medical Decision Making: Data Reviewed: Tests & Documents Reviewed/ordered: Review of prior notes from myself, Bebeto Johnson Review of prior operative reports I have discussed Jodi Toledo's treatment plan and/or results with the patient. I spent a total of 30 minutes on the date of the service which included preparing to see the patient, [id number] patient care, completing clinical documentation, obtaining and/or reviewing separately obtained history, performing a medically appropriate examination, and counseling and educating the patient/family/caregiver. Maylin Downey MD Colorectal Surgery documented in this encounter [facility] 08-01-2022 Nurse Note What is the reason for your visit today? Established patient presents post op/ anal fissure. Who is your referring physician? Are you having poor oral intake? NO Have you had unintentional weight loss of 15 lbs/7 Kg in the last 3-6 months? NO Bowels: regular Wound: Temperature: No Drains: No documented in this encounter [facility] 07-08-2022 Progress note Note Date/Time July 08, 2022 11:09am [facility] [address] [place] [address] Psychiatry Progress Note Signed Patient: Jodi Toledo MR#: [id number] : 1985 Acct:[id number] Age/Sex: 36 / F Adm Date: 2 Loc: Room: [address] [place] [address] Type : ADM IN Attending Dr: Raciel Espinoza MD Copies to: ~ Date of Service: 07/08/2022 Subjective Subjective Narrative: Ms. Toledo reported that she is doing good. She denied any hallucinations. She slept well overnight and did use her CPAP machine. She reported a good visit with her family yesterday and looking forward to them coming today. She denied any allergies to current medications. Mental Status Exam: Appearance: grossly normal Mental Status: mental status grossly normal Mood: Improving mood Affect: Improving affect Speech and Movement: speech and movement normal and speech clear Attitude: cooperative Thought Process: normal Thought Content: Denied hallucinations, no homicidality, no suicidality Insight: fair Judgment: fair Exam Physical Exam Vital Signs: Temp Pulse Resp BP Pulse Ox O2 Del Method 97.4 F L 84 18 135/90 99 Room Air 07/08/22 07:30 07/08/22 07:30 07/08/22 07:30 07/08/22 07:30 07/08/22 07:30 07/08/22 07:30 Assessment/Plan Assessment/Plan (1) Unspecified psychosis: Code(s): F29 - Unspecified psychosis not due to a substance or known physiological condition Status: Acute Plan Patient reported that symptoms are improving Anticipate discharge tomorrow Continue Seroquel 100mg (increased from 50 mg), Elavil 50mg, Prozac 40mg, Topamax 100mg Continue to monitor mental status Encourage medication compliance and participation in group sessions Documented By: Raciel Espinoza MD 07/08/221107 Signed By: <Electronically signed by Raciel Espinoza MD> 07/08/22 [id number] [facility] Work Phone: [phone]) 161-307911-04-2022 History and physical note Author Raciel Espinoza [facility] July 07, 2022 11:45am Note Date/Time July 07, 2022 1 1:45am [facility] [address] [place] [address] Psychiatry H&P Signed Patient: Jodi Toledo MR#: [id number] : 1985 Acct:[id number] Age/Sex: 36 / F Adm Date: 2 Loc: Room: [address] [place] [address] Type: ADM IN Attending Dr: Raciel Espinoza MD Copies to: MD Deedee Bean DO Date of Service: 07/07/2022 HPI History of Present Illness History of present illness: Ms. Toledo is a 36 year old female with a history of intellectual disability who presented last night for an acute episode of confusion and auditory hallucinations. She reports that she was very confused last night and her dad found her naked in bed and brought her to the hospital. She states that she was hearing voices saying to clean yourself up. She reports that she is feeling normal now. Patient seems to be a poor historian as she denies seeing a psychiatrist or taking any medications at home. Past psych history: Unknown Past hospitalizations: Denies Past suicide attempts: Denies Family psych history: Unknown Current medications: Seroquel 100mg, Elavil 50mg, Prozac 40mg, Topamax 100mg Surgical History: surgery to repair anal fissure on July 03 Alcohol and drug use: Denied smoking, alcohol, and drug use Living: Lives in [place] with mom and dad Employment: Works at [employer] Mental status exam: Mental Status: mental status grossly normal Mood: Pleasant Affect: Flat affect Speech and Movement: Speech and movements normal and speech clear. Attitude: Cooperative Thought Process: Linear Thought Content: Denies suicidality/homicidality, denies current hallucinations Insight: limited Judgment: limited Impulse control: limited Review of symptoms: Constitutional: Denies chills and fever HEENT: Admits to WALKER. Denies changes in vision or hearing Cardiovascular: Denies chest pain and palpitations Respiratory: Denies SOB, cough, wheeze Gastrointestinal: Admits to vomiting last night after taking meds. Denies current nausea, diarrhea, constipation Genitourinary: Denies dysuria Integumentary: Denies dry skin, rash Neurologic: Denies abnormal gait, numbness/tingling, dizziness Psychiatric: Admits to auditory hallucinations last night. Denies SI/HI, anxiety, depression Patient was personally seen by me on the day of the encounter. I reviewed the history and performed the montejo elements of the physical examination. I formulated the plan of care and confirmed this with the medical student as notedbelelyse. Patient presented due to concern for hallucinations and poor sleep overnight. Reported that she slept well overnight and feeling better today. Physical exam: Const: cooperative Nutritional Appearance: average body habitus Orientation: alert, awake and oriented x3 HEENT: Head normal to inspection, hearing grossly normal bilaterally, external nose normal, face symmetric Eyes: appearance normal, both eyes and all related structures, sclerae normal Neck: normal visual inspection and full ROM Resp: normal respiratory effort, able to speak in complete sentences and symmetric chest movement Cardio: regular rate GI: normal to inspection and non-distended : deferred Skin: no rashes or lesions noted Neuro: CNII: Visual doss intact, CNIII,IV,: EOM intact, no nystagmus. Pupilsequal, round, reactive to light and accommodation, CNV: Sensation intact to light touch, CNVII: Raises eyebrows, smile/frown, puff out cheeks symmetrically, CNVIII: Hearing intact bilaterally, CNIX,X: Voice normal, soft palate elevation normal, symmetrical, CNXI: Shoulder shrug strong, equal bilaterally, CNXII: Tongue protrusion midline, movement symmetrical. Extrem: normal to inspection and full ROM PMFSH Vaccinated for COVID-19?: Yes Medical History (Updated 07/07/22 @ 11:02 by Maria Luisa Musa) Migraines OCD (obsessive compulsive disorder) SUZANNE (obstructive sleep apnea) Surgical History No history of previous surgery Family History (Updated 07/06/22 @ 20:02 by Sammie Davidson, RN) Other Anal fissure No significant family history Social History Smoking Status: Never smoker Substance Use Type: None Social History Comments: Lives with Mom and Dad Meds Medications and Allergies Allergies Penicillins Allergy (Verified 03/27/22 07:11) Rash Home Medications amitriptyline 25 mg tablet 50 mg PO HS 03/27/22 [History Confirmed 07/06/22] pezklvhkyh-bdhbaxfenwdvm-eybziell 50 mg-325 mg-40 mg tablet 1 tab PO DIRECTEDPRN migraines 03/27/22 [History Confirmed 07/06/22] docusate sodium 100 mg capsule 100 mg PO BID #60 caps 03/27/22 [Rx Confirmed 07/06/22] quetiapine 25 mg tablet 50 mg PO HS 03/27/22 [History Confirmed 07/06/22] rosuvastatin 5 mg tablet 5 mg PO HS 03/27/22 [History Confirmed 07/06/22] topiramate 100 mg tablet 100 mg PO HS 03/27/22 [History Confirmed 07/06/22] fluoxetine 40 mg capsule 40 mg PO QHS 07/06/22 [History Confirmed 07/06/22] Exam Physical Exam Vital Signs: Temp Pulse Resp BP Pulse Ox O2 Del Method 98.2 F 103 H 18 143/95 H 98 Room Air 07/07/22 07:30 07/07/22 07:30 07/06/22 19:58 07/07/22 07:30 07/07/22 07:30 07/07/22 07:30 Assessment/Plan (1) Unspecified psychosis: Code(s): F29 - Unspecified psychosis not due to a substance or known physiological condition Status: Acute Plan Patient presented due to confusion and auditory hallucinations We will try to obtain collateral from parents Continue Seroquel 100mg (increased from 50 mg), Elavil 50mg, Prozac 40mg, Topamax 100mg Continue to monitor mental status Encourage medication compliance and participation in group sessions Documented By: Raciel Espinoza MD 07/07/22 1047 Signed By: <Electronically signed by Raciel Espinoza MD> 07/07/22 [address] [facility] Work Phone: 1(556) 569-263210-26-2022 History and physical note* Kitty Lucia APRN.KILN HAND - 06/28/2022 3:00 PM EDT PREANESTHESIA CONSULT CLINIC TELEHEALTH VISIT Patient has been identified by name and date of : Yes This is a virtual visit using [employer] video visit. It require patient-provider interaction for the medical decision making as documented below. Reason for contact: PACC visit Accompanied by: Self and mother Scheduled Surgery: EXAM UNDER ANESTHESIA RECTAL and SPHINCTEROTOMY ANAL Subjective CHIEF COMPLAINT: Patient presents with: Pre-Op Visit HPI: 36 year old female with history of anal fissure,had botox 05/25 without relief, now to have SPHINCTEROTOMY ANAL Pt uses lidocaine gel for pain as needed. She denies abdominal pain, nausea, vomiting, fevers or chills. ACTIVE PROBLEM LIST Anxiety Hld (Hyperlipidemia) Intellectual Disability Migraines Mood Disorder (Hcc) Sleep Apnea Obesity, Class II, Bmi 35-39.9 PAST MEDICAL HISTORY Diagnosis Date Anxiety HLD (hyperlipidemia) Intellectual disability patient's mother reports she is high functioning Migraines Mood disorder (HCC) Sleep apnea PAST SURGICAL HISTORY Procedure Laterality Date COLONOSCOPY SCREENING PAST SURGICAL HISTORY OF 05/2022 botox FAMILY HISTORY Problem Relation Age of Onset No Known Problems Mother Diabetes Father Anesthesia Problems No Family History Social History Tobacco Use Smoking status: Never Smokeless tobacco: Never Vaping Use Vaping Use: Never used Substance Use Topics Alcohol use: Never Drug use: Never ALLERGIES Allergen Reactions Penicillins Unknown MEDICATIONS: Current Outpatient Medications Medication Sig FLUoxetine (PROZAC) 20 mg capsule Take 40 mg by mouth daily at bedtime. medroxyPROGESTERone (DEPO-PROVERA) 150 mg/mL injection Inject 150 mg intramuscularly every 3 months. docusate sodium (COLACE) 100 mg capsule Take 100 mg by mouth twice daily. amitriptyline (ELAVIL) 25 mg tablet Take 25 mg by mouth. acetaminophen 325 mg-caffeine 40 mg-butalbital 50 mg (FIORICET) per tablet TAKE 1 TABLET BY MOUTH AT THE ONSET OF MIGRAINE, MAY REPEAT EVERY 4 TO 6 HOURS. NO MORE THAN 2 TIMES A DAY AND 2 TIMES A WEEK calcium carbonate (CALTRATE) 600 mg calcium (1,500 mg) tab Take 600 mg by mouth. lidocaine (XYLOCAINE) 5 % ointment APPLY NEEDED FOUR TIMES A DAY QUEtiapine (SEROQUEL) 25 mg tablet Take 25 mg by mouth. Takes 1.5 tablets by mouth daily rosuvastatin (CRESTOR) 5 mg tablet Take 5 mg by mouth once daily. topiramate (TOPAMAX) 100 mg tablet No current facility-administered medications for this visit. COVID VACCINATION STATUS: Fully vaccinated REVIEW OF SYSTEMS: Pain Assessment: General: No weight loss, malaise or fevers. UTI symptoms resolved Neuro: Postive for Headaches, Negative for Seizures Stroke-residual deficit Respiratory: Positive for SUZANNE uses CPAP, Negative for Current cough, Dyspnea Cardiovascular: Positive for: HLD, Negative for Arrhythmia, Chest Pain, DVT/PE GI: See HPI : No history of dysuria, frequency or incontinence,, stones or chronic kidney disease UTI symptoms resolved Endocrine: No history of diabetes. Has not taken steroids within the past 30 days. No history of endocrinological symptoms or problems. Hematology: No history of bleeding or clotting disorder. Pt is not taking anti- coagulation or platelet medications. No history of hematological symptoms or problems. Oncology: No history of CA metastasis, chemo within 30 days, or radiotherapy within 90 days. Has not lost 10% of body wt in 6 months. No history of oncological symptoms or problems. Psych: Anxiety, Depression, OCD per mother high functioning, therapist every 3 months for meds. Pt mother states pt stable on meds Musculoskeletal: Negative for joint pain or swelling, back pain or muscle pain. Skin: Negative for lesions, rash and itching. Objective PHYSICAL EXAM: Ht 5' 6 (1.68m) Wt 225 lb (102.1kg) BMI 36.33 kg/(m^2). VIDEO EXAM: (if completed, performed via video enabled technology) GENERAL: alert and appropriate, in no distress, well-hydrated,and interactive BMI=36 SKIN: no rash noted HEAD: normocephalic, no abnormality or lesion noted EYES: no injection EARS: external ears normal NOSE: external nose normal without rhinorrhea OROPHARYNX: moist mucus membranes, lips, teeth and gums are without obvious lesion NECK: full ROM, no cervical LNs noted RESPIRATORY: breathing non-labored and no grunting/flaring/retractions CHEST: equal chest rise with normal respiratory effort HEART: Pt denies palpitations ABDOMEN: soft and non-tender EXTREMITIES: no reported LE edema per pt NEUROLOGIC: no obvious deficit Diagnostic tests reviewed for today's visit: Lab Value Units Date High Low HB No results within date range. HCT No results within date range. WBC No results within date range. PLT No results within date range. NA No results within date range. K 3.8 mmol/L 05/12/2022 5.1 3.7 GLUC No results within date range. BUN No results within date range. CREAT No results within date range. PTSEC No results within date range. INR No results within date range. APTT No results within date range. ALT No results within date range. AST No results within date range. TBILI No results within date range. TSH No results within date range. Lab Value Units Date High Low HCGQT No results within date range. UHCG No results within date range. HCG, BODY* No results within date range. Lab Value Units Date High Low ABORHD No results within date range. ABSCREEN No results within date range. No results found for: HBA1C Most recent labs Diagnostic tests reviewed for today's visit: Labs dated 03/07/2022 in care everywhere reviewed CBC with normal H/H, WBC and platelet Chemistry with mildly elevated Calcium of 10.3 (8.5-10.1), K 3.2 (3.5-5.1), Protein 8.4 (6.4-8.2) otherwise normal NA, Creatinine, BUN, GFR, AST, ALT Potassium Date Value Ref Range Status 05/12/2022 3.8 3.7 - 5.1 mmol/L Final Impression/Recommendations ASSESSMENT: HLD (hyperlipidemia) Assessment: takes Crestor Sleep apnea Assessment: SUZANNE uses CPAP Migraines Assessment: on meds Intellectual disability Assessment: per mother pt is high functioning Anxiety Assessment: on meds Obesity, Class II, BMI 35-39.9 Assessment: BMI=36 METS: Climb a flight of stairs or walk up a hill (5.50 METs) Patient denies any chest pain or undue shortness of breath with the above physical activity. Works in [employer], on hold now due to illness ASA Class: 3 ANESTHESIA FINDINGS: Intubation History: No history of difficult intubation Significant Anesthesia Considerations: None Airway Exam: General: Normal appearance Mallampati Score is CLASS III ULBT: Class II - Lower incisors can bite the upper lip below the maida line Neck: Short neck full ROM Mouth: Large tongue size and Mouth opening greater than 2 finger breaths Dentition: Intact Airway History: No abnormal airway history STOP BANG Score: SUZANNE uses CPAP/BiPAP PLAN: This patient is optimally prepared for surgery. CONSULTS: Patient does not require consults for optimization at this time. The Following Tests/Procedures Have Been Initiated: No orders of the defined types were placed in this encounter. Planned Anesthetic: Per anesthesia choice Instructions Given to Patient: Patient given verbal instructions and voices comprehension and compliance. Copy sent electronically via My Chart, email, or mobile device. I spent more than 0-20 minutes [id number] with the patient and over half the time was devoted to counseling and/or coordination of care. This is a virtual visit. It required patient-provider interaction for the medical decision making as documented above. SIGNATURE: Kitty Lucia APRN.CNP PATIENT NAME: Jodi Toledo DATE: June 28, 2022 TIME: 3:08 PM PAGER/CONTACT #: documented in this encounterC[facility] Instructions* Patient Instructions* Kitty Lucia APRN.CNP - 06/28/2022 2:10 PM EDT PATIENT PREOPERATIVE INSTRUCTIONS Maylin Downey MD has scheduled you for your procedure at this surgery center: [facility]: [phone] --[address] [place] [address]. Please read below carefully for your personalized instructions. Dietary Restrictions: - No solid food after midnight. - You may have 12 ounces of clear liquids (water, clear juices such as apple juice or gatorade, carbonated beverages, clear tea, black coffee, jello) until 2 hours before scheduled arrival at facility. Medications: Unless instructed differently below, stay on all of your medications until your surgery. Approved medications to take the morning of surgery with a sip of water: none If you start any new medications after today's visit, please contact the surgeon's office. Blood Thinning Medications: - Stop NSAIDS (Ibuprofen, Advil, Aleve, Motrin, Celebrex, Mobic, etc.) 7 days before surgery, as directed by your surgeon. - Stop Aspirin 7 days before surgery, as directed by your surgeon. - Do NOT stop aspirin or other anticoagulants without consulting with your tow bar driver or prescribing physician. - Stop Vitamin E, ALL multi-vitamins, herbals and dietary supplements 7 days before surgery. - You may take Tylenol (Acetaminophen) or any of your pain medications that do not contain aspirin or NSAIDS as needed. Important Reminders: Bring CPAP day of surgery - Candy, mints, and tobacco products are NOT permitted the morning of surgery. - Hearing aids, dentures and glasses may be worn the morning of surgery. - NO jewelry, body piercings, makeup, hairpins or contacts are to be worn the day of surgery. If you develop symptoms such as a fever, cold, or flu, or have other changes to your health within TWO DAYS of scheduled surgery or the morning of surgery, please contact the surgery center above. Personal Belongings: -Please have photo ID and insurance cards. -If you do not have a copy of advance directives on file with us, please bring a copy with you on the day of surgery. - Leave ALL valuables and money at home or with family members. For Outpatient Procedures: - YOU MUST HAVE A RESPONSIBLE CHILD CARE LEAD TEACHER TAKE YOU HOME. A FORENSIC CHEMIST OR TAKER OFF BRAKER MACHINE CANNOT BE MADE A RESPONSIBLE CHILD CARE LEAD TEACHER. - We recommend that a responsible person stays with you overnight to take care of you. - You cannot stay in a hotel alone after outpatient surgery. You will not be permitted to have yoursurgery, if you do not have someone to take care of you. Arrival Time for Surgery: - The Surgery Center or hospital where you are having surgery will call the afternoon before surgery (or Sunday for Sunday surgery) with a scheduled arrival time. - If you have not heard by 4 pm, please contact the surgery center above. Please be aware that emergency situations arise, which may delay or change your surgical time. If this happens, we will notify you as soon as possible and regret any inconvenience. If you already have an Advance Directive, please fax a copy to [phone] or email to for it to be added to your chart. If you do not have an Advance Directive, you can find the appropriate form and more information at [email or web address]. We recommend that youcomplete the Advance Directive form found on the website and bring it with you the day of your surgery. It can be witnessed and scanned into your chart that day. Kitty Lucia APRN.CNP documented in this encounterC[facility]10-[facility]-2022 NoteHNO ID: [id number] Author: Inocencia Johnson MD Service: ? Author Type: Physician Type: Progress Notes Filed: 06/22/2022 4:03 PM Note Text: COLORECTAL SURGERY June 22, 2022 Jodi Toledo 36 year old Chief Complaint: anal fissure History of Present Illness: Jodi Toledo is a 36 year old female presents today s/p rectal exam under anesthesia, Botox injection, excision of posterior perianal lesion on 05/16/22. She has noticed no difference since Botox injection. No issues with incontinence. Still with terrible pain PAST MEDICAL HISTORY Diagnosis Date Anxiety HLD (hyperlipidemia) Intellectual disability patient's mother reports she is high functioning Migraines Mood disorder (HCC) Sleep apnea PAST SURGICAL HISTORY Procedure Laterality Date COLONOSCOPY SCREENING Current Outpatient Medications Medication Sig Dispense Refill FLUoxetine (PROZAC) 20 mg capsule Take 40 mg by mouth daily at bedtime. medroxyPROGESTERone (DEPO-PROVERA) 150 mg/mL injection Inject 150 mg intramuscularly every 3 months. docusate sodium (COLACE) 100 mg capsule Take 100 mg by mouth twice daily. amitriptyline (ELAVIL) 25 mg tablet Take 25 mg by mouth. acetaminophen 325 mg-caffeine 40 mg-butalbital 50 mg (FIORICET) per tablet TAKE 1 TABLET BY MOUTH AT THE ONSET OF MIGRAINE, MAY REPEAT EVERY 4 TO 6 HOURS. NO MORE THAN 2 TIMES A DAY AND 2 TIMES A WEEK calcium carbonate (CALTRATE) 600 mg calcium (1,500 mg) tab Take 600 mg by mouth. lidocaine (XYLOCAINE) 5 % ointment APPLY NEEDED FOUR TIMES A DAY QUEtiapine (SEROQUEL) 25 mg tablet Take 25 mg by mouth. rosuvastatin (CRESTOR) 5 mg tablet Take 5 mg by mouth once daily. topiramate (TOPAMAX) 100 mg tablet No current facility-administered medications for this visit. ALLERGIES Allergen Reactions Penicillins Unknown FAMILY HISTORY Problem Relation Age of Onset No Known Problems Mother Diabetes Father Anesthesia Problems No Family History Social History Tobacco Use Smoking status: Never Smokeless tobacco: Never Vaping Use Vaping Use: Never used Substance Use Topics Alcohol use: Never Drug use: Never Physical Exam: BP 113/72 Pulse 88 SpO2 100% General Appearance: Well appearing, alert, in no acute distress, well-hydrated, well nourished. Anorectal: External exam reveals posterior midline anal fissure. Pier Hand present: Yes, Merissa Watkins Assessment Assessment and Plan: Jodi Toledo is a 36 year old female with posterior midline anal fissure that failed topical therapy and also failed Botox. She has a hypertonic anal sphincter and would be a good candidate for lateral internal sphincterotomy. She is agreeable. My ASC time is booking far out and they wished for something sooner. We have arranged for surgery to be scheduled on 07/[address] Maylin Downey. They are happy with this plan Inocencia Johnson MD [facility] History of Present illness Narrative* Inocencia Johnson MD - 06/22/2022 3:40 PM EDT COLORECTAL SURGERY June 22, 2022 Jodi Toledo 36 year old Chief Complaint: anal fissure History of Present Illness: Jodi Toledo is a 36 year old female presents today s/p rectal exam under anesthesia, Botox injection, excision of posterior perianal lesion on 05/16/22. She has noticed no difference since Botox injection. No issues with incontinence. Still with terrible pain PAST MEDICAL HISTORY Diagnosis Date Anxiety HLD (hyperlipidemia) Intellectual disability patient's mother reports she is high functioning Migraines Mood disorder (HCC) Sleep apnea PAST SURGICAL HISTORY Procedure Laterality Date COLONOSCOPY SCREENING Current Outpatient Medications Medication Sig Dispense Refill FLUoxetine (PROZAC) 20 mg capsule Take 40 mg by mouth daily at bedtime. medroxyPROGESTERone (DEPO-PROVERA) 150 mg/mL injection Inject 150 mg intramuscularly every 3 months. docusate sodium (COLACE) 100 mg capsule Take 100 mg by mouth twice daily. amitriptyline (ELAVIL) 25 mg tablet Take 25 mg by mouth. acetaminophen 325 mg-caffeine 40 mg-butalbital 50 mg (FIORICET) per tablet TAKE 1 TABLET BY MOUTH AT THE ONSET OF MIGRAINE, MAY REPEAT EVERY 4 TO 6 HOURS. NO MORE THAN 2 TIMES A DAY AND 2 TIMES A WEEK calcium carbonate (CALTRATE) 600 mg calcium (1,500 mg) tab Take 600 mg by mouth. lidocaine (XYLOCAINE) 5 % ointment APPLY NEEDED FOUR TIMES A DAY QUEtiapine (SEROQUEL) 25 mg tablet Take 25 mg by mouth. rosuvastatin (CRESTOR) 5 mg tablet Take 5 mg by mouth once daily. topiramate (TOPAMAX) 100 mg tablet No current facility-administered medications for this visit. ALLERGIES Allergen Reactions Penicillins Unknown FAMILY HISTORY Problem Relation Age of Onset No Known Problems Mother Diabetes Father Anesthesia Problems No Family History Social History Tobacco Use Smoking status: Never Smokeless tobacco: Never Vaping Use Vaping Use: Never used Substance Use Topics Alcohol use: Never Drug use: Never Physical Exam: BP 113/72 Pulse 88 SpO2 100% General Appearance: Well appearing, alert, in no acute distress, well-hydrated, well nourished. Anorectal: External exam reveals posterior midline anal fissure. Pier Hand present: Yes, Merissa Watkins Assessment Assessment and Plan: Jodi Toledo is a 36 year old female with posterior midline anal fissure that failed topical therapy and also failed Botox. She has a hypertonic anal sphincter and would be a good candidate for lateral internal sphincterotomy. She is agreeable. My ASC time is booking far out and they wished for something sooner. We have arranged for surgery to be scheduled on 07/[address] Maylin Downey. They are happy with this plan Inocencia Johnson MD Colorectal Surgery documented in this encounterC[facility]10-[facility] Nurse Note* Merissa Watkins RN - 06/22/2022 2:56 PM EDT What is the reason for your visit today? EST patient f/u anal fissure Who is your referring physician? Are you having poor oral intake? NO Have you had unintentional weight loss of 15 lbs/7 Kg in the last 3-6 months? NO Bowels: soft / with bleeding Wound: none Temperature: No Drains: No documented in this encounterC[facility]09-08-2022 Instructions* Patient Instructions* Ella Mitchell PA-C - 05/11/2022 11:31 AM EDT PATIENT PREOPERATIVE INSTRUCTIONS Inocencia Johnson MD has scheduled you for your procedure at this surgery center: [facility]: [phone] --[address] [place] [address]. Please enter through the entrance closest to [facility]. Please read below carefully for your personalized instructions. Dietary Restrictions: - No solid food after midnight. - You may have 12 ounces of clear liquids (water, clear juices such as apple juice or gatorade, carbonated beverages, clear tea, black coffee, jello) until 2 hours before scheduled arrival at facility. Medications: Unless instructed differently below, stay on all of your medications until your surgery. Approved medications to take the morning of surgery with a sip of water: None If you start any new medications after today's visit, please contact the surgeon's office. Blood Thinning Medications: - Stop NSAIDS (Ibuprofen, Advil, Aleve, Motrin, Celebrex, Mobic, etc.) 7 days before surgery, as directed by your surgeon. - Stop Aspirin 7 days before surgery, as directed by your surgeon. - Stop Vitamin E, ALL multi-vitamins, herbals and dietary supplements 14 days before surgery. - You may take Tylenol (Acetaminophen) or any of your pain medications that do not contain aspirin or NSAIDS as needed. Important Reminders: - If you use CPAP/BIPAP, bring the machine with you to the surgery center. - Candy, mints, and tobacco products are NOT permitted the morning of surgery. - Hearing aids, dentures and glasses may be worn the morning of surgery. - NO jewelry, body piercings, makeup, hairpins or contacts are to be worn the day of surgery. If you develop symptoms such as a fever, cold, or flu, or have other changes to your health within TWO DAYS of scheduled surgery or the morning of surgery, please contact the surgery center above. Personal Belongings: -Please have photo ID and insurance cards. -If you do not have a copy of advance directives on file with us, please bring a copy with you on the day of surgery. - Leave ALL valuables and money at home or with family members. For Outpatient Procedures: - YOU MUST HAVE A RESPONSIBLE CHILD CARE LEAD TEACHER TAKE YOU HOME. A FORENSIC CHEMIST OR TAKER OFF BRAKER MACHINE CANNOT BE MADE A RESPONSIBLE CHILD CARE LEAD TEACHER. - We recommend that a responsible person stays with you overnight to take care of you. - You cannot stay in a hotel alone after outpatient surgery. You will not be permitted to have yoursurgery, if you do not have someone to take care of you. Arrival Time for Surgery: - The Surgery Center or hospital where you are having surgery will call the afternoon before surgery (or Sunday for Sunday surgery) with a scheduled arrival time. - If you have not heard by 4 pm, please contact the surgery center above. Please be aware that emergency situations arise, which may delay or change your surgical time. If this happens, we will notify you as soon as possible and regret any inconvenience. If you already have an Advance Directive, please fax a copy to [phone] or email to for it to be added to your chart. If you do not have an Advance Directive, you can find the appropriate form and more information at [email or web address]. We recommend that youcomplete the Advance Directive form found on the website and bring it with you the day of your surgery. It can be witnessed and scanned into your chart that day Ella Mitchell PA-C documented [facility] History and physical note * Ella Mitchell PA-C - 05/11/2022 11:02 AM EDT PREANESTHESIA CONSULT CLINIC TELEHEALTH VISIT Patient has been identified by name and date of : Yes This is a virtual visit using Songkick video visit. It require patient-provider interaction for the medical decision making as documented below. Reason for contact: PACC visit Accompanied by: her mother Scheduled Surgery: EUA rectal and injection botox Subjective CHIEF COMPLAINT: Patient presents with: Pre-Op Visit HPI: This is a 36 year old female who presents with anal fissure present for 7-8 months. She reports constant pain that worsens with bowel movements. Current pain is 1/10. Sitz baths are helpful. Shedenies rectal bleeding. She elects to proceed with above procedure. ACTIVE PROBLEM LIST Anxiety Hld (Hyperlipidemia) Intellectual Disability Migraines Mood Disorder (Hcc) Sleep Apnea Obesity, Class II, Bmi 35-39.9 PAST MEDICAL HISTORY Diagnosis Date Anxiety HLD (hyperlipidemia) Intellectual disability patient's mother reports she is high functioning Migraines Mood disorder (HCC) Sleep apnea PAST SURGICAL HISTORY Procedure Laterality Date COLONOSCOPY SCREENING FAMILY HISTORY Problem Relation Age of Onset No Known Problems Mother Diabetes Father Anesthesia Problems No Family History Social History Tobacco Use Smoking status: Never Smokeless tobacco: Never Vaping Use Vaping Use: Never used Substance Use Topics Alcohol use: Never Drug use: Never ALLERGIES Allergen Reactions Penicillins Unknown MEDICATIONS: Current Outpatient Medications Medication Sig nitrofurantoin monohydrate and macrocrystal (MACROBID) 100 mg capsule Take 1 capsule by mouth twicedaily. FLUoxetine (PROZAC) 20 mg capsule Take 40 mg by mouth daily at bedtime. medroxyPROGESTERone (DEPO-PROVERA) 150 mg/mL injection Inject 150 mg intramuscularly every 3 months. docusate sodium (COLACE) 100 mg capsule Take 100 mg by mouth twice daily. amitriptyline (ELAVIL) 25 mg tablet Take 25 mg by mouth. acetaminophen 325 mg-caffeine 40 mg-butalbital 50 mg (FIORICET) per tablet TAKE 1 TABLET BY MOUTH AT THE ONSET OF MIGRAINE, MAY REPEAT EVERY 4 TO 6 HOURS. NO MORE THAN 2 TIMES A DAY AND 2 TIMES A WEEK calcium carbonate (CALTRATE) 600 mg calcium (1,500 mg) tab Take 600 mg by mouth. lidocaine (XYLOCAINE) 5 % ointment APPLY NEEDED FOUR TIMES A DAY QUEtiapine (SEROQUEL) 25 mg tablet Take 25 mg by mouth. rosuvastatin (CRESTOR) 5 mg tablet Take 5 mg by mouth once daily. topiramate (TOPAMAX) 100 mg tablet No current facility-administered medications for this visit. COVID VACCINATION STATUS: Fully vaccinated REVIEW OF SYSTEMS: Pain Assessment: Learning disability - high functioning per her mother. 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 General: No weight loss, malaise or fevers. Neuro: Postive for Migraines, Negative for Seizures Stroke-residual deficit Parkinson's Disease Multiple Sclerosis Respiratory: No history of current cough or dyspnea, or pneumonia in the past 6 weeks. No history of respiratory/pulmonary symptoms or problems. Cardiovascular: Positive for: HLD, Negative for Recent [place], Arrhythmia, CAD, Chest Pain, CHF, Valvular Heart Disease, DVT/PE GI: No history of GI symptoms or problems. No history of esophageal varices, recent ascites, or ETOH greater than 2 drinks per day. : Negative for dysuria, frequency, hematuria, and Confusion, Positive for recent UTI - tends to have atypical symptoms with UTIs including confusion or hallucinations. On Macrobid. Currently asymptomatic DIRECTOR [employer] EDUCATION: Negative for abnormal vaginal bleeding, abnormal vaginal discharge. : Denies, No LMP recorded. (Menstrual status: Drug Induced Amenorrhea). Endocrine: No history of diabetes. Has not taken steroids within the past 30 days. No history of endocrinological symptoms or problems. Hematology: No history of bleeding or clotting disorder. Pt is not taking anti- coagulation or platelet medications. No history of hematological symptoms or problems. Oncology: No history of CA metastasis, chemo within 30 days, or radiotherapy within 90 days. Has not lost 10% of body wt in 6 months. No history of oncological symptoms or problems. Psych: Anxiety, and mood disorder - on Seroquel, Prozac and Elavil Musculoskeletal: Negative for joint pain or swelling, back pain or muscle pain. Skin: Negative for lesions, rash and itching. Objective PHYSICAL EXAM: BP 128/92[home BP cuff[ Pulse 84[home BP cuff[ Ht 5' 3 [patient reported[ (1.60m) Wt 225 lb (102.1kg) BMI 39.87 kg/(m^2). VIDEO EXAM: (if completed, performed via video enabled technology) GENERAL: alert and appropriate, in no distress, well-hydrated, well nourished, happy, smiling, interactive, and overweight SKIN: no rash noted HEAD: normocephalic, no abnormality or lesion noted EYES: no injection NOSE: external nose normal without rhinorrhea NECK: short/thick neck, limited extension RESPIRATORY: breathing non-labored and no grunting/flaring/retractions CHEST: equal chest rise with normal respiratory effort HEART: Patient confirmed radial pulse and counted aloud with regular rhythm. HR 64 BPM. No cyanosis ABDOMEN: soft and non-tender NEUROLOGIC: no cerebral deficits noted Diagnostic tests reviewed for today's visit: Labs dated 03/07/2022 in care everywhere reviewed CBC with normal H/H, WBC and platelet Chemistry with mildly elevated Calcium of 10.3 (8.5-10.1), K 3.2 (3.5-5.1), Protein 8.4 (6.4-8.2) otherwise normal NA, Creatinine, BUN, GFR, AST, ALT PENDING Impression/Recommendations ASSESSMENT: HLD (hyperlipidemia) Assessment: on Crestor Sleep apnea Assessment: uses CPAP Obesity, Class II, BMI 35-39.9 Assessment: BMI 39 Intellectual disability Assessment: patient's mother reports that Jodi is high functioning . Jodi participated in the visit today and her mother assisted with answering some questions. Hypokalemia - on previous labs in March 2022. Check updated potassium pre-op Migraines - on Topamax for prevention. Takes Fioricet prn. UTI - patient's mother reports that Jodi tends to have atypical symptoms of UTI including confusion or hallucinations. She had some confusion on 05/08 and was seen in [facility] care. States urine testing was abnormal, so she was started on Macrobid. She is currently asymptomatic and back to baseline.Denies urinary symptoms or confusion. Will finish course of Macrobid day before surgery. METS: Walk a block or two on level ground (2.75 METs) Climb a flight of stairs or walk up a hill (5.50 METs) Patient denies any chest pain or undue shortness of breath with the above physical activity. Walking ASA Class: 3 ANESTHESIA FINDINGS: Intubation History: No prior intubation Significant Anesthesia Considerations: Has never had anesthesia Airway Exam: General: Normal appearance Mallampati Score is CLASS IV, arched tongue ULBT: Unable to perform Neck: Limited movement extension, Short neck, thick neck Mouth: Normal tongue size and Mouth opening greater than 2 finger breaths Dentition: Intact Airway History: No prior intubation STOP BANG Score: SUZANNE uses CPAP/BiPAP PLAN: This patient is optimally prepared for surgery pending repeat potassium Notified surgeon of recent treatment for UTI. Patient is currently asymptomatic and will finish treatment on 05/15. Control Drug Interaction with Sugammadex (Bridion ): discussed with patient and her mother. Encouraged backup control for 7 days after surgery CONSULTS: Patient does not require consults for optimization at this time. The Following Tests/Procedures Have Been Initiated: EKG not indicated per PACC protocol Planned Anesthetic: MAC Instructions Given to Patient: Patient given verbal instructions and voices comprehension and compliance. Copy sent electronically via My Chart, email, or mobile device. Encouraged patient to continue to monitor home BP readings and notify PCP if it remains elevated. BP within PACC guidelines to proceed. This is a virtual visit. It required patient-provider interaction for the medical decision making as documented above. SIGNATURE: Ella Mitchell PA-C PATIENT NAME: Jodi Toledo DATE: 05/11/2022 TIME: 11:00 AM PAGER/CONTACT #: documented in this encounterC[facility]-18-[facility] Nurse Note* Merissa Watkins RN - 04/20/2022 9:43 AM EDT What is the reason for your visit today? New patient consult for anal fissure Who is your referring physician? Are you having poor oral intake? NO Have you had unintentional weight loss of 15 lbs/7 Kg in the last 3-6 months? NO Bowels: soft Wound: none Temperature: No Drains: No documented in this encounterC[facility]08-18-2022 History of Present illness Narrative* Inocencia Johnson MD - 04/20/2022 9:40 AM EDT COLORECTAL SURGERY April 20, 2022 Jodi Toledo 36 year old This consult was requested by Dr. Ortiz and my final recommendations will be communicated to the requesting health care provider by way of the shared medical record for internal providers or letter via the [email or web address] for external providers. Chief Complaint: anal fissure History of Present Illness: Jodi Toledo is a 36 year old female presents today for evaluation of anal fissure. Colonoscopy 03/27/22 - Dr. Ortiz - Acute anal fissure at the 9 o'clock position well on left lateral decubitus. - Exam was otherwise normal. She reports 2 months of pain that is worsened with bowel movements. She reports she does not think she has to strain. Things have not gotten better with nitroglycerin ointment No past medical history on file. No past surgical history on file. No current outpatient medications on file. No current facility-administered medications for this visit. ALLERGIES Not on File No family history on file. Physical Exam: BP 136/90 (BP Site: Left Arm, BP Position: Sitting, BP Cuff Size: Regular Adult) Pulse 86 SpO2 100% General Appearance: Well appearing, alert, in no acute distress, well-hydrated, well nourished. Anorectal: External exam reveals posterior midline anal fissure. Pier Hand present: Yes, Merissa Watkins Assessment Assessment and Plan: Jodi Toledo is a 36 year old female with posterior midline anal fissure not responding to nitroglycerin. She has not responded to more conservative management with medication we will plan for either Botox injection or lateral internal sphincterotomy. The patient and her father will discuss with her mother and decide on the day of surgery which they would like to proceed. Risks and benefits of both were explained. Consent to be obtained on the day of surgery Medical Decision Making: Data Reviewed: Tests & Documents Reviewed/ordered: Review of prior notes from Dr. Ortiz Review of Procedures / Tests: Colonoscopy I have discussed Jodi Toledo's treatment plan and/or results with Dr. Ortiz. Risk of morbidity, mortality and/or complications of treatment plan: colby Johnson MD Colorectal Surgery documented in this encounterC[facility]07-25-[facility]22 [facility] note[facility]* Encounter Date Diagnosis Assessment Notes Treatment Notes Treatment Clinical Notes Feb, Hemorrhoids (ICD-10 - K64.9) Feb, Rectal bleeding (ICD-10 - K62.5) Feb, Abdominal pain (ICD-10 - R10.9) Feb, Diarrhea (ICD-10 - R19.7) Feb, Rectal pain (ICD-10 - K62.89) [employer] Other 03-01-2022 Evaluation note* Encounter Date Diagnosis Assessment Notes Treatment Notes Treatment Clinical Notes Nov, Headache (ICD-10 - R51.9) Nov, Contact with and (suspected) exposure to other viral communicable diseases (ICD-10 - Z20.828) Today test was performed in office. Results are currently negative. That does not mean that you will not develop COVID or do not currently have a low viral count of COVID. The rapid test works best if symptoms have been over 72 hours and the results can vary if you are asymptomatic There is a higher chance of false negative results to occur if testing is performed too soon. It is recommended that even if results are negative and you have been exposed to someone that has COVID that you follow current CDC recommendations. These can be found at CDC.GOV. Follow up with primary care provider if symptoms persist or do not improve *VIRAL URI HANOUT GIVEN ON OTC TREATMENTS, FOLLOW UP AND WHEN TO SEEK EMERGENCY TREATMENT Nov, Recurrent acute serous otitis media of right ear (ICD-10 - H65.04) Ear infections are often a secondary infection caused from an URI, the flu or allergies. Take medication as directed. Complete all doses, even if you feel better. Tylenol or ibuprofen can help with pain. Warm pack to area for comfort helps as well. Follow up with primary care provider if no improvement of symptoms. Nov, Other Additional time spent conducting pre-visit phone call, screening for symptoms, instructions on social distancing, application and removal of PPE, and cleaning of examination room, equipment and supplies was preformed. Patient education given for testing methodology and results. Patient care instructions given in writting by [facility] Care At Home document. [employer] Other Discharge summary Author Raciel Espinoza [facility] July 09, 2022 11:26am Note Date/Time July 09, 2022 1 1:22am [facility] [address] [place] [address] Discharge Summary Signed Patient: Jodi Toledo MR#: [id number] : 1985 Acct:[id number] Age/Sex: 36 / F Adm Date: 2 Loc: Room: [address] [place] [address]: Raciel Espinoza MD Copies to: MD Deedee Beang, DO~ Providers Date of Discharge: 07/09/22 Discharging Provider: Raciel Espinoza Primary Care Provider: Deedee Whiting Discharge Diagnosis (1) Unspecified psychosis: Final Diagnosis Final Discharge Diagnosis: Uns Summary Hospital Course Hospital course: According to admission note: Ms. Toledo is a 36 year old female with a history of intellectual disability who presented last night for an acute episode of confusion and auditory hallucinations. She reports that she was very confused last night and her dad found her naked in bed and brought her to the hospital. She states that she was hearing voices saying to clean yourself up. She reports that she is feeling normal now. Patient seems to be a poor historian as she denies seeing a psychiatrist or taking any medications at home. Past psych history: Unknown Past hospitalizations: Denies Past suicide attempts: Denies Family psych history: Unknown Current medications: Seroquel 100mg, Elavil 50mg, Prozac 40mg, Topamax 100mg Surgical History: surgery to repair anal fissure on July 03 Alcohol and drug use: Denied smoking, alcohol, and drug use Living: Lives in [place] with mom and dad Employment: Works at [employer] Patient was continued on her medications. Her dose of Seroquel was increased during hospitalization. She tolerated the medications without any problems and did not report any side effects. She did not appear internally stimulated. Shedid not appear to be psychotic or depressed. She did not exhibit any symptoms of adrienne. She did not exhibit any behavior concerning for suicidality. She wascomfortable with discharge home and following up with outpatient services. Her parents were contacted who were on board with plan as well. Condition Condition at Discharge: Stable Status at Discharge Cognitive/behavioral status at discharge: Mental Status Exam: Appearance: grossly normal Mental Status: mental status grossly normal Mood: Euthymic mood Affect: Normal affect Speech and Movement: speech and movement normal and speech clear Attitude: cooperative Thought Process: normal Thought Content: Denied hallucinations, no homicidality and no suicidality Insight: Good Judgment: Good Functional status at discharge: independent ambulation Overall status at discharge: patient is back to baseline Time Spent with Patient Time spent providing/coordinating discharge services (# min): 30 Exam Physical Exam Vital Signs: Temp Pulse Resp BP Pulse Ox O2 Del Method 96.7 F L 90 16 139/86 95 Room Air 11/06/22 07:26 07/09/22 07:26 07/09/22 07:26 07/09/22 07:26 07/09/22 07:26 07/09/22 07:26 Discharge Plan Discharge Plan Patient Disposition: Home Activity: No Activity Restriction Diet: Regular Additional Instructions: Regular Diet No Activity Restrictions Instructions: Acute Psychosis (DC), [facility] [place] Instructions Stand Alone Forms: Work/School Release Form Prescriptions: New quetiapine 100 mg Tablet 100 mg PO QHS 30 Days Qty: 30 0RF Continued rggvdpnilj-bhygmwelrzdiy-fyyh 50-325-40 mg tablet 1 tab PO DIRECTED PRN (Reason: migraines) Label Comments: TAKE 1 TABLET BY MOUTH AT THE ONSET OF MIGRAINE, MAY REPEAT EVERY 4 TO 6 HOURS. NO MORE THAN 2 TIMES A DAY AND 2 TIMES A WEEK. Rx Instructions: 1 tablet at onset of migraine. May repeat every 4-6 hours. No more than 2 x aday and 2x a week. amitriptyline 25 mg tablet 50 mg PO HS Label Comments: TAKE 1 & 1/2 TO 2 (ONE & ONE-HALF TO TWO) TABLETS BY MOUTH EVERY DAY AT BEDTIME topiramate 100 mg tablet 100 mg PO HS Label Comments: TAKE 1 TABLET BY MOUTH ONCE DAILY FOR 90 DAYS rosuvastatin 5 mg tablet 5 mg PO HS Label Comments: TAKE 1 TABLET BY MOUTH ONCE DAILY docusate sodium 100 mg capsule 100 mg PO BID Qty: 60 3RF fluoxetine 40 mg capsule 40 mg PO QHS Label Comments: TAKE 1 CAPSULE BY MOUTH ONCE DAILY. CHANGE IN DOSAGE. DECREASE FROM 60MG TO 40MG Discontinued quetiapine 25 mg tablet 50 mg PO HS Label Comments: TAKE 1 TABLET BY MOUTH AT BEDTIME Follow Up: [facility]ing Hotline [Outside] [facility] [Outside] Documented By: Raciel Espinoza MD 07/09/22 1119 Signed By: <Electronically signed by Raciel Espinoza MD> 07/09/22 1126 [facility] Work Phone: Evaluation noteNo assessment information available [facility] Work Phone: Evaluation noteNo InformationNort [employer] Other Evaluation note* Diagnosis Acute anal fissure- Primary Anal fissure [facility]* Diagnosis Preop examination- Primary Preoperative examination, unspecified Anal fissure Hypokalemia Hypopotassemia Obesity, Class II, BMI 35-39.9 Obesity, unspecified Hyperlipidemia, unspecified hyperlipidemia type Obstructive sleep apnea syndrome Obstructive sleep apnea (adult) (pediatric) Intellectual disability Unspecified intellectual disabilities Acute cystitis without hematuria Acute cystitis Anal fissure documented in this encounter [facility] note* Diagnosis Follow-up examination after colorectal surgery- Primary Follow-up examination, following other surgery documented [facility]* Diagnosis Pre-op evaluation- Primary Preoperative examination, unspecified Hyperlipidemia, unspecified hyperlipidemia type Other sleep apnea Intellectual disability Unspecified intellectual disabilities Anxiety Anxiety state, unspecified Obesity, Class II, BMI 35-39.9 Obesity, unspecified Anal fissure documented [facility]* Diagnosis Onset Date Resolution Status Unspecified psychosis [facility] Work Phone: Evaluation note* Diagnosis Follow-up examination after colorectal surgery- Primary Follow-up examination, following other surgery Anal fissure documented [facility]* Diagnosis Anal fissure- Primary documented in this encounter [facility] note* Diagnosis Anal fissure- Primary Follow-up examination after colorectal surgery Follow-up examination, following other surgery documented in this encounter [facility] note* Diagnosis Left ankle strain, initial encounter- Primary Injury of left ankle, initial encounter [facility] Encounter for surveillance of injectable contraceptive- Primary General counselling and advice on contraception [facility] Diagnosis Encounter for surveillance of injectable contraceptive- Primary [facility] Diagnosis Encounter for surveillance of injectable contraceptive- Primary [facility] Diagnosis Migraine without aura and without status migrainosus, not intractable (CMS/HCC)- Primary Obstructive sleep apnea Obstructive sleep apnea (adult) (pediatric) 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, unspecified Memory change Memory loss [facility] Diagnosis Encounter for management and injection of depo-Provera- Primary [facility] Diagnosis Encounter for management and injection of depo-Provera- Primary [facility]* Diagnosis Radicular pain of right lower extremity- Primary Acute pain of right knee [facility]* Diagnosis Acute pain of right knee Radicular pain of right lower extremity documented in this [facility]* Diagnosis Acute pain of right knee- Primary Radicular pain of right lower extremity documented in this encounter [facility]* Diagnosis Acute pain of right knee- Primary Radicular pain of right lower extremity documented in this encounter [facility]* Diagnosis Acute pain of right knee- Primary Radicular pain of right lower extremity documented in this encounter [facility]* Diagnosis Acute pain of right knee- Primary Radicular pain of right lower extremity documented in this encounter [facility]* Diagnosis Encounter for surveillance of injectable contraceptive- Primary [facility]* Diagnosis Acute pain of right knee- Primary documented in this encounter [facility]* Diagnosis Acute pain of right knee- Primary Radicular pain of right lower extremity documented in this encounter [facility]* Diagnosis Primary osteoarthritis of right knee- Primary Chronic pain of right knee documented in this encounter [facility] HealthcareHistory general Narrative - Reported* Type Description Date Medical History mentally disabled [facility] Other Hospital Discharge instructions Additional Instructions Regular Diet No Activity [facility] Work Phone: Instructions* Attachments The following attachments cannot be sent through Care Everywhere. * Medroxyprogesterone? ADULT (Estonian) documented in this encounterProMedica Health SystemInstructionsNot on file documented in this encounterProMedica Health SystemInstructionsNot on file documented in this encounterProMedica Health SystemInstructionsNot on file documented in this encounterProMediwi Health SystemInstructionsNot on file documented in this encounterProMediwi Health SystemInstructionsNot on file documented in this encounterProMedical Center Barbour Health SystemReason for visit Narrative PATIENT HERE AT THE REQUEST OF DEEDEE WHITING FOR EVALUATION & TREATMENT OF HEMORRHOIDSSt[facility] Other Reason for visit Narrative* Rehabilitation - Outpatient (Routine) - Authorized Specialty Diagnoses / Procedures Referred By Bentley smith Referred To Contact Physical Therapy Diagnoses Acute pain of right knee Radicular pain of right lower extremity Procedures [place] OFFICE/OUTPATIENT NEW HIGH MDM 60 MINUTES Gloria Logan, MARYANNE [address] [place] [address] Phone: tel: fax: Lisa Pepe, JOAQUINA Referral ID Status Reason Start Date Expiration Date Visits Requested Visits Authorized [id number] Authorized Specialty Services Required 04/27/2025 10/03/2025 99 99 [facility] HealthcareReason for visit Narrative* Rehabilitation - Outpatient (Routine) - Authorized Specialty Diagnoses / Procedures Referred By Bentley smith Referred To Contact Physical Therapy Diagnoses Acute pain of right knee Radicular pain of right lower extremity Procedures [place] [facility] Gloria Logan, MARYANNE [address] [place] [address] Phone: tel: fax: Lisa Pepe, JOAQUINA Referral ID Status Reason Start Date Expiration Date Visits Requested Visits Authorized [id number] Authorized Specialty Services Required 04/27/2025 09/02/2025 99 99 [facility] Summary Purpose Family History Relationship Condition Age at Onset Recorded Date/T saul Not Specified No pertinent family history Unknown Relationship Condition Age at Onset Recorded Date/T saul Not Specified No pertinent family history Unknown Anal fissure Unknown Advance Directives Advance Directive Response Recorded Date/ Time Advance Directives No February 22 4:17pm Advance Directive Response Recorded Date/ Time Advance Directives No February 22 3:17pm Chief Complaint and Reason for Visit Chief Complaint Rectal Pain and Blee ding, Diarrhea, Abdominal Pain Rectal Pain and Bleeding, Diarrhea, Abdominal Pain Chief Complaint Unspecified pscyhosi s Reason for Visit Unspecified psychosi s Additional Source Comments INFORMATION SOURCE (unrecogn ized section and content) DATE CREATED AUTHOR 04/22/2021 [facility] DATE CREATED AUTHOR AUTHOR'S ORGANIZ ATION 06/03/2022 [facility] DATE CREATED AUTHOR AUTHOR'S ORGANIZ ATION 07/03/2022 [facility] DATE CREATED AUTHOR AUTHOR'S ORGANIZ ATION 12/10/2022 [facility] DATE CREATED AUTHOR AUTHOR'S ORGANIZ ATION 05/19/2023 [facility] DATE CREATED AUTHOR AUTHOR'S ORGANIZ ATION 01/14/2025 [facility] DATE CREATED AUTHOR AUTHOR'S ORGANIZ ATION 06/05/2025 [facility] EPIC REASON FOR VISIT (unrecogniz ed section and content) Reason Comments New Patient Consult for anal fis sure Reason Comments Pre-Op Visit Reason Comments Established Patient Follow-Up F/u anal f issure Reason Comments Post Op Reason Comments Established Patient Follow-Up 3 month f/ u anal fissure Reason Comments Established Patient 6 month follow up fo r anal fissure Reason Onset Date Comments AG- fioricet PA denied 04/15/2024 Reason Comments Contraception Pt is here for Depo and yearly BC check Reason Comments Contraception Pt is here for Depo Reason Comments Sleep Apnea Migraine Reason Comments Injection Patient presents to receive Depo Provera injection. Reason Comments Injection Patient presents for Depo Provera injection. Reason Comments Pain Reason Comments Injection Patient presents for a depo provera injection. Reason Comments Follow-up Care Teams (unrecognized sec tion and content) Team Status: Inactive Member Role Status Dates Deedee Whiting DO Primary Care Provider Active Wilfredo Ortiz MD Attending Provider Active Team Status: Inactive Member Role Status Dates Wilfredo Ortiz MD Attending Provider Active Deedee Whiting DO Primary Care Provider Active Team Status: Active Member Role Status Dates Deedee Whiting DO Primary Care Provider Active Qualitative Field Project Manager Relationship Specialty Start Date End Date Noe Rico [address] [place] [address] PCP - General Family Practice 05/01/22 Qualitative Field Project Manager Relationship Specialty Start Date End Date Noe Rico [address] [place] [id number] PCP - General Family Medicine 05/01/22 Qualitative Field Project Manager Relationship Specialty Start Date End Date Noe Rico [address] [place] [phone] PCP - General Family Medicine 05/01/22 Team Status: Inactive Member Role Status Dates Deedee Whiting DO Primary Care Provider Active Raciel Espinoza MD Admit Provider, Attending Provider Active Qualitative Field Project Manager Relationship Specialty Start Date End Date Noe Rico [address] [place] [address] PCP - General Family Medicine 05/01/22 Qualitative Field Project Manager Relationship Specialty Start Date End Date Noe Rico [address] [place] [address] PCP - General Family Medicine 05/01/22 Qualitative Field Project Manager Relationship Specialty Start Date End Date Noe Rico [address] [place] [address] PCP - General Family Medicine 05/01/22 Qualitative Field Project Manager Relationship Specialty Start Date End Date Deedee Whiting DO [address] [place] [address] PCP - General Family Medicine 03/14/23 Qualitative Field Project Manager Relationship Specialty Start Date End Date Deedee Whiting DO [address] [place] [address] PCP - General Family Medicine 03/14/23 Qualitative Field Project Manager Relationship Specialty Start Date End Date [facility], [facility] [address] [place], [place] PCP - General Family Medicine 05/11/17 Qualitative Field Project Manager Relationship Specialty Start Date End Date Services, [facility] [address] [place], [place] PCP - General Family Medicine 05/11/17 Qualitative Field Project Manager Relationship Specialty Start Date End Date Deedee Whiting DO [address] [place] [address] PCP - General Family Medicine 03/14/23 Coretta Josue DO [address] [place] [address] Referring Physician Neurology 10/20/24 Qualitative Field Project Manager Relationship Specialty Start Date End Date Deedee Whiting DO [address] [place], [place] [id number] PCP - General Family Medicine 03/14/23 Coretta Josue DO [address] [place] [address] Referring Physician Neurology 10/20/24 Qualitative Field Project Manager Relationship Specialty Start Date End Date [facility] [address] [place] PCP - General Family Medicine 05/11/17 Qualitative Field Project Manager Relationship Specialty Start Date End Date [facility] [address] [place] PCP - General Family Medicine 05/11/17 Qualitative Field Project Manager Relationship Specialty Start Date End Date Deedee Whiting DO [address] [place] [address] PCP - General Family Medicine 03/14/23 Coretta Josue DO [address] [place] [address] Referring Physician Neurology 10/20/24 Qualitative Field Project Manager Relationship Specialty Start Date End Date Deedee Whiting DO [address] [place] [address] PCP - General Family Medicine 03/14/23 Coretta Josue DO [address] [place] [address] Referring Physician Neurology 10/20/24 Qualitative Field Project Manager Relationship Specialty Start Date End Date RumDeepti kylety, [address] [place] [address] PCP - General Family Medicine 03/14/23 Coretta Josue DO [address] [place] [address] Referring Physician Neurology 10/20/24 Qualitative Field Project Manager Relationship Specialty Start Date End Date Deepti Whitingty, [address] [place] [address] PCP - General Family Medicine 03/14/23 Coretta Josue DO [address] [place] [address] Referring Physician Neurology 10/20/24 Qualitative Field Project Manager Relationship Specialty Start Date End Date Deepti Whitingty, [address] [place] [address] PCP - General Family Medicine 03/14/23 Coretta Josue DO [address] [place] [address] Referring Physician Neurology 10/20/24 Qualitative Field Project Manager Relationship Specialty Start Date End Date Deedee Whiting DO [address] [place] [address] PCP - General Family Medicine 03/14/23 Coretta Josue DO [address] [place] [address] Referring Physician Neurology 10/20/24 Qualitative Field Project Manager Relationship Specialty Start Date End Date Deedee Whiting, [address] [place] [address] PCP - General Family Medicine 03/14/23 Coretta Josue DO [address] [place] [address] Referring Physician Neurology 10/20/24 Qualitative Field Project Manager Relationship Specialty Start Date End Date FelipeDeedee [address] [place] [address] PCP - General Family Medicine 03/14/23 Coretta Josue DO [address] [place] [address] Referring Physician Neurology 10/20/24 Qualitative Field Project Manager Relationship Specialty Start Date End Date FelipeDeedeeDO [address] [place] [address] PCP - General Family Medicine 03/14/23 Coretta Josue DO [address] [place] [address] Referring Physician Neurology 10/20/24 Qualitative Field Project Manager Relationship Specialty Start Date End Date Deepti WhitingtyDO [address] [place] [address] PCP - General Family Medicine 03/14/23 Coretta Josue DO [address] [place] [address] Referring Physician Neurology 10/20/24 Qualitative Field Project Manager Relationship Specialty Start Date End Date Deepti WhitingtyDO [address] [facility] [place] [address] PCP - General Family Medicine 03/14/23 Coretta Josue DO [address] [place] [address] Referring Physician Neurology 10/20/24 Qualitative Field Project Manager Relationship Specialty Start Date End Date KrystinaDeedee cliftonDO [address] [facility] [facility] [place] [address] PCP - General Family Medicine 03/14/23 Meggan Freeman DO [address] [place] [address] PCP - [facility] 09/03/24 Coretta Josue DO [address] [place] [address] Referring Physician Neurology 10/20/24 Qualitative Field Project Manager Relationship Specialty Start Date End Date MaryDeedee mathewsDO [address] [facility] [facility] [place] [address] PCP - General Family Medicine 03/14/23 Meggan Freeman DO [address] [place] [address] PCP - [facility] 09/03/24 Coretta Josue DO [address] [place] [address] Referring Physician Neurology 10/20/24 Source Comments (unrecognize d section and content) In the event this informatio n is protected by the [facility] Confidentiality of Alcohol and Drug Abuse Patient Records regulations: The Federal rules restrict any use of the information to criminally investigate or prosecute any alcohol or drug abuse patient.[facility] HospitalIn the event this information is protected by the Federal Confidentiality of Alcohol and Drug Abuse Patient Records regulations: The Federal rules restrict any use of the information to criminally investigate or prosecute any alcohol or drug abuse patient.[facility] HospitalIn the event this information is protected by the Federal Confidentiality of Alcohol and Drug Abuse Patient Records regulations: The Federal rules restrict any use of the information to criminally investigate or prosecute any alcohol or drug abuse patient.[facility] HospitalIn the event this information is protected by the Federal Confidentiality of Alcohol and Drug Abuse Patient Records regulations: The Federal rules restrict any use of the information to criminally investigate or prosecute any alcohol or drug abuse patient.[facility] HospitalIn the event this information is protected by the Federal Confidentiality of Alcohol and Drug Abuse Patient Records regulations: The Federal rules restrict any use of the information to criminally investigate or prosecute any alcohol or drug abuse patient.[facility] HospitalIn the event this information is protected by the Federal Confidentiality of Alcohol and Drug Abuse Patient Records regulations: The Federal rules restrict any use of the information to criminally investigate or prosecute any alcohol or drug abuse patient.[facility] HospitalIn the event this information is protected by the Federal Confidentiality of Alcohol and Drug Abuse Patient Records regulations: The Federal rules restrict any use of the information to criminally investigate or prosecute any alcohol or drug abuse patient.[facility] FOR RECORDS PERTAINING TO PATIENTS WHO ARE OR HAVE BEEN ENROLLED IN A CHEMICAL DEPENDENCY/SUBSTANCEABUSE PROGRAM, SOME INFORMATION MAY BE OMITTED. This clinical summary was aggregated from multiple sources. Caution should be exercised in using it in the provision of clinical care. This summary normalizes information from multiple sources, and as a consequence, information in this document may materially change the coding, format and clinical context of patient data. In addition, data may be omitted in some cases. CLINICAL DECISIONS SHOULD BE BASED ON THE PRIMARY CLINICAL RECORDS. [facility]. provides no warranty or guarantee of the accuracy or completeness of information in this document.
[2025-06-17 10:10] LABS: Alanine Aminotransferase 38 U/L (14-59); Albumin Globulin Ratio 1.0; Albumin Level 3.8 g/dL (3.4-5.0); Alkaline Phosphatase 67 U/L (46-116); Anion Gap 17.8; Aspartate Amino Transferase 7 U/L (15-37); Blood Urea Nitrogen 9.0 mg/dL (7.0-18.0); Calcium 9.0 mg/dL (8.5-10.1); Carbon Dioxide 21.6 mmol/L (21.0-32.0); Chloride 107 mmol/L (98-107); Estimated GFR (African America >60 (>=60 mL/min/1.73m^2); Estimated GFR (Non-African Ame >60 (>=60 mL/min/1.73m^2); Globulin 3.8 g/dL; Glucose 137 mg/dL (74-106); Potassium 3.4 mmol/L (3.5-5.1); Sodium 143 mmol/L (136-145); Total Protein 7.6 g/dL (6.4-8.2)
== END 2025-06-17 08:32 | disposition home or self-care (01) ==
PROVIDERS: PCP Nurse Practitioner Primary Care; Visit Provider Internal Medicine
DX: E11.9 Type 2 diabetes mellitus without complications (principal)
CPT/HCPCS: 36415; 80053; 82043; 83036